=== PATIENT | male | born 1935 | race Caucasian/White ===

== ENCOUNTER 2018-02-28 10:15 | Inpatient (IN) | payer MEDICARE, OTHER ==
[~2018-02-28] VITALS: Ht 172.7 cm; Wt 74.5 kg
[2018-02-28 11:38] VITALS: BP 117/50
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
--- NOTE | 2018-02-28 12:57 | NUR ---
Pt has been very agitated since admission. Pt stating that his daughter put him here and he does not belong here. Pt states that he is going to take his DIL to court and jonathan everyone here. Pt raising his voice at times. Pt upset that we "took" his cell phone and belt. Pt refused to enter dining room for lunch, stating he is "not eating with all of those crazies." PRN Zyprexa placed in glass of water, which pt consumed. Pt currently sitting in room, refusing to leave. Will continue to monitor.
[2018-02-28] MEDS ORDERED: METHYL SALICYLATE/MENTHOL TOPICAL OINTMENT 29GM TUBE. TP PRN (13:15)
[2018-02-28] MEDS ORDERED: MAG HYDROX/AL HYDROX/SIMETH 30 ML ORAL.SUSP PO PRN (13:15)
[2018-02-28] MEDS ORDERED: ACETAMINOPHEN 325 MG TABLET PO PRN (13:15)
[2018-02-28] MEDS ORDERED: MAGNESIUM HYDROXIDE 2,400 MG/30 ML ORAL.SUSP. PO PRN (13:15)
[2018-02-28] MEDS ORDERED: ASPI-630 PO (15:12)
[2018-02-28] MEDS ORDERED: GLUC-9 PO (15:12)
[2018-02-28] MEDS ORDERED: CLOP75TA57 PO (15:12)
[2018-02-28] MEDS ORDERED: ATOR40TA PO (15:12)
[2018-02-28] MEDS ORDERED: MULT1TAB52 PO (15:12)
[2018-02-28] MEDS ORDERED: CALC500T79 PO (15:12)
[2018-02-28] MEDS ORDERED: METO50TA29 PO (15:12)
[2018-02-28] MEDS ORDERED: LISI-338 PO (15:12)
[2018-02-28] MEDS ORDERED: OMEG1CAP38 PO (15:12)
[2018-02-28 16:56] VITALS: BP 104/65
--- NOTE | 2018-02-28 20:53 | PDOC ---
Exam Note: Harinder Note: Please also refer to the separate dictated note~for this date of service dictated separately.~Patient seen individually. Discussed the patient with Nursing staff reviewed the chart.~Reviewed interim history and current functioning. Reviewed vital signs,~Labs/ Radiology~and current medications noted below. Continue current treatment with the changes noted in the dictated addendum note Assessment: Vital Signs: Vital Signs Date Time Temp Pulse Resp B/P (MAP) Pulse Ox O2 Delivery O2 Flow Rate FiO2 02/28/18 16:56 97.7 65 18 104/65 (78) 98 Current Medications: Meds: Current Medications Olanzapine (ZyPREXA ZYDIS) 1.25 mg PRN Q2HR PRN PO PSYCHOSIS Last administered on 02/28/18at 12:19; Start 02/28/18 at 12:00 Acetaminophen (Tylenol) 650 mg PRN Q6HRS PRN PO PAIN / TEMP; Start 02/28/18 at 13:15 Multi-Ingredient Ointment (Analgesic [place]) 1 sophia PRN QID PRN TP MUSCLE PAIN; Start 02/28/18 at 13:15 Al Hydroxide/Mg Hydroxide (Mylanta Plus Xs) 15 ml PRN AFTMEALHC PRN PO DYSPEPSIA; Start 02/28/18 at 13:15 Magnesium Hydroxide (Milk Of Magnesia) 2,400 mg PRN QHS PRN PO CONSTIPATION; Start 02/28/18 at 13:15 Calcium Carbonate/ Glycine (Oscal) 500 mg DAILY PO ; Start 03/01/18 at 09:00 Clopidogrel Bisulfate (Plavix) 75 mg DAILY PO ; Start 03/01/18 at 09:00 Lisinopril (Prinivil) 5 mg DAILY PO ; Start 03/01/18 at 09:00 Aspirin (Children'S Aspirin) 81 mg DAILYWBKFT PO ; Start 03/01/18 at 08:00 Atorvastatin Calcium (Lipitor) 40 mg DAILY PO ; Start 03/01/18 at 09:00 Glucosamine/ Chondroitin (Glucosamine-Chondroitin 500/400mg) 1 cap DAILY PO ; Start 03/01/18 at 09:00 Metoprolol Succinate (Toprol Xl) 50 mg DAILY PO ; Start 03/01/18 at 09:00 Fish Oil (Fish Oil) 1,000 mg DAILY PO ; Start 03/01/18 at 09:00 Multivitamins/ Minerals (I-Andre) 1 tab DAILY PO ; Start 03/01/18 at 09:00 Sertraline HCl (Zoloft) 25 mg DAILY PO ; Start 03/01/18 at 09:00 Active Scripts Active Reported Lisinopril 5 Mg Tablet 5 Mg PO DAILY [id number] (Calcium Carbonate) 500 Mg Tablet 500 Mg PO DAILY Glucosamine Chondroitin Caplet (Gluc Emanuel Dipo Ch/Bg Emanuel/C/Sushant) 1 Each Tablet 1 Each PO DAILY Multivitamins (Multivitamin) 1 Each Tablet 1 Each PO [place] 3 Fish Oil Softgel ([place]-3 Fatty Acids/Fish Oil) 1 Each Capsule.dr 1 Each PO DAILY Aspirin 81 Mg Tab.chew 81 Mg PO DAILY Lipitor (Atorvastatin Calcium) 40 Mg Tablet 40 Mg PO DAILY Plavix (Clopidogrel Bisulfate) 75 Mg Tablet 75 Mg PO DAILY Metoprolol Succinate ( Xl ) (Metoprolol Succinate) 50 Mg Tab.er.24h 50 Mg PO DAILY I have reviewed the current psychotropics carefully including drug interactions. Risk benefit ratio favors no change other than as noted in my dictated progress note. Diagnosis: Problems: (1) Anxiety disorder (2) Impulse control disorder (3) Mild cognitive impairment (4) Major depressive disorder, recurrent episode DAVY CISNEROS MD Feb 28, 2018 20:53
[2018-02-28 21:33] LABS: BASO % 1 % (0-3); EOS # 0.1 x10^3/uL (0.0-0.7); EOS % 1 % (0-3); HEMATOCRIT 41.9 % (39.0-53.0); HEMOGLOBIN 14.8 g/dL (13.0-17.5); LYMPH # 0.9 x10^3/uL (1.0-4.8); LYMPH % 10 % (24-48); MEAN CORPUSCULAR HEMOGLOBIN 33 pg (25-35); MEAN CORPUSCULAR HGB CONC 35 g/dL (31-37); MEAN CORPUSCULAR VOLUME 93 fL (79-100); MONO # 0.8 x10^3/uL (0.0-1.1); MONO % 9 % (0-9); NEUT # 7.5 x10^3uL (1.8-7.7); NEUT % 81 % (31-73); PLATELET COUNT 217 x10^3/uL (140-400); RED BLOOD COUNT 4.53 x10^6/uL (4.30-5.70); RED CELL DISTRIBUTION WIDTH 13.6 % (11.5-14.5); WHITE BLOOD COUNT 9.2 x10^3/uL (4.0-11.0)
[2018-02-28 21:46] LABS: ALBUMIN 3.5 g/dL (3.4-5.0); ALBUMIN/GLOBULIN RATIO 1.1 (1.0-1.7); CALCIUM 8.4 mg/dL (8.5-10.1); CREATININE 1.2 mg/dL (0.7-1.3); GFR 57.7; MAGNESIUM 2.1 mg/dL (1.8-2.4); POTASSIUM 3.8 mmol/L (3.5-5.1); TOTAL BILIRUBIN 0.7 mg/dL (0.2-1.0); TOTAL PROTEIN 6.8 g/dL (6.4-8.2)
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
--- NOTE | 2018-02-28 23:48 | NUR ---
Patient found in hallway for shift assessment. Patient is visibly agitated. Patient is obsessive related to finding his belongings. Patient repeatedly questioning this nurse about his belongings and demanding that this nurse let him go down to first floor so that he can find his belongings. Patient difficult to redirect. Patient Alert and oriented to self and date only at this time. Patient believes he has been at this hospital for several weeks. Patient is resting in his room at this time.
[2018-03-01 06:32] VITALS: BP 126/61
[2018-03-01] MEDS: ATORVASTATIN CALCIUM 20 MG TABLET PO SCH (09:35)
[2018-03-01] MEDS: OMEGA-3 FATTY ACIDS/FISH OIL 1,000 MG CAPSULE. PO SCH (09:36)
[2018-03-01] MEDS: GLUCOSAMINE/CHOND 500/400MG CAPSULE PO SCH (09:36)
[2018-03-01] MEDS: MULTIVITAMIN I-VITE TABLET. PO SCH (09:36)
[2018-03-01] MEDS: LISINOPRIL 5 MG TABLET. PO SCH (09:36)
[2018-03-01] MEDS: SERTRALINE 25 MG TABLET. PO SCH (09:36)
[2018-03-01] MEDS: CLOPIDOGREL BISULFATE 75 MG TABLET PO SCH (09:36)
[2018-03-01] MEDS: ASPIRIN 81 MG TAB.CHEW PO SCH (09:36)
[2018-03-01] MEDS: METOPROLOL SUCC 24HR ER 50 MG TAB.ER.24H. PO SCH (09:36)
[2018-03-01] MEDS: CALCIUM CARBONATE 500 MG TABLET PO SCH (09:37)
[2018-03-01 10:18] LABS: BACTERIA,URINE 0 /HPF (0-FEW); BILIRUBIN,URINE NEG (NEG); CLARITY,URINE CLEAR; COLOR,URINE AMBER; GLUCOSE,URINE NEG (NEG); NITRITE,URINE NEG (NEG); RBC,URINE 0 /HPF (0-2); SQUAMOUS EPITHELIAL CELL,UR OCC /LPF; UROBILINOGEN,URINE 0.2 mg/dL (0.2 mg/dL); WBC,URINE 0 /HPF (0-4)
--- NOTE | 2018-03-01 13:09 | NUR ---
Patient has been to the nurses station asking for his belongings 3-4 times. Patient becoming increasingly agitated and wanting to leave. Advised patient that he will be here a few days, and is waiting to see the doctors. He then threatened to get a gun and "take care of the situation".
[2018-03-01 14:16] LABS: THYROID STIM HORMONE (TSH) 3.567 uIU/mL (0.358-3.740)
--- NOTE | 2018-03-01 15:00 | NUR ---
WEEKLY THERAPEUTIC RECREATION NOTE Date of Admission: 02/28/2018 Date of AT Assessment: TBD Goal aimed: TBD Initial goal: TBD Weekly progress towards goal: NA Group participation level: Zero Behaviors observed: stays in room, no interest in groups, quiet Plan: meet/ assess Pt.
[2018-03-01 16:17] VITALS: BP 90/55
--- NOTE | 2018-03-01 16:52 | NUR ---
Patient at nurses station yelling for 30 minutes and blaming everyone for his problems. We've "taken everything away from him". Demanding his cell phone, wallet and keys because he wants to leave. Patient continued to argue with everything staff said, blaming others for everything. Denies having any problems, became agitated and was gesturing with hands and stomping in hallway. Continued to say "I can't live this way, I'll probably have a heart attack, I just want my cell phone". Continues to blame staff for keeping him here against his will, when informed that it was his son, HAILEY, that "put him here" he stated that he would go away where they can't find him. Denies having any memory of the events that brought him here, PD being called and going to [facility] room.
--- NOTE | 2018-03-01 20:48 | PDOC ---
Exam Note: Harinder Note: Please also refer to the separate dictated note~for this date of service dictated separately.~Patient seen individually. Discussed the patient with Nursing staff reviewed the chart.~Reviewed interim history and current functioning. Reviewed vital signs,~Labs/ Radiology~and current medications noted below. Continue current treatment with the changes noted in the dictated addendum note Assessment: Vital Signs: Vital Signs Date Time Temp Pulse Resp B/P (MAP) Pulse Ox O2 Delivery O2 Flow Rate FiO2 03/01/18 16:17 97.0 69 18 90/55 (67) 98 I&O Intake and Output 03/01/18 07:00 Intake Total 600 ml Balance 600 ml Intake Oral 600 ml Labs: Laboratory Tests Test 02/28/18 21:00 02/28/18 21:15 03/01/18 09:30 Sodium Level 138 mmol/L (136-145) Potassium Level 3.8 mmol/L (3.5-5.1) Chloride Level 105 mmol/L (98-107) Carbon Dioxide Level 25 mmol/L (21-32) Anion Gap 8 (6-14) Blood Urea Nitrogen 20 mg/dL (8-26) Creatinine 1.2 mg/dL (0.7-1.3) Estimated GFR (Cockcroft-Gault) 57.7 BUN/Creatinine Ratio 17 (6-20) Glucose Level 101 mg/dL (70-99) H Calcium Level 8.4 mg/dL (8.5-10.1) L Magnesium Level 2.1 mg/dL (1.8-2.4) Total Bilirubin 0.7 mg/dL (0.2-1.0) Aspartate Amino Transferase (AST) 36 U/L (15-37) Alanine Aminotransferase (ALT) 24 U/L (16-63) Alkaline Phosphatase 102 U/L (46-116) Total Protein 6.8 g/dL (6.4-8.2) Albumin 3.5 g/dL (3.4-5.0) Albumin/Globulin Ratio 1.1 (1.0-1.7) White Blood Count 9.2 x10^3/uL (4.0-11.0) Red Blood Count 4.53 x10^6/uL (4.30-5.70) Hemoglobin 14.8 g/dL (13.0-17.5) Hematocrit 41.9 % (39.0-53.0) Mean Corpuscular Volume 93 fL (79-100) Mean Corpuscular Hemoglobin 33 pg (25-35) Mean Corpuscular Hemoglobin Concent 35 g/dL (31-37) Red Cell Distribution Width 13.6 % (11.5-14.5) Platelet Count 217 x10^3/uL (140-400) Neutrophils (%) (Auto) 81 % (31-73) H Lymphocytes (%) (Auto) 10 % (24-48) L Monocytes (%) (Auto) 9 % (0-9) Eosinophils (%) (Auto) 1 % (0-3) Basophils (%) (Auto) 1 % (0-3) Neutrophils # (Auto) 7.5 x10^3uL (1.8-7.7) Lymphocytes # (Auto) 0.9 x10^3/uL (1.0-4.8) L Monocytes # (Auto) 0.8 x10^3/uL (0.0-1.1) Eosinophils # (Auto) 0.1 x10^3/uL (0.0-0.7) Basophils # (Auto) 0.0 x10^3/uL (0.0-0.2) Iron Level 58 ug/dL (65-175) L Total Iron Binding Capacity 249 ug/dL (250-450) L Iron Saturation 23 % (15-34) Triglycerides Level 75 mg/dL (0-150) Cholesterol Level 117 mg/dL (0-200) LDL Cholesterol, Calculated 64 mg/dL (0-100) VLDL Cholesterol, Calculated 15 mg/dL (0-40) Non-HDL Cholesterol Calculated 79 mg/dL (0-129) HDL Cholesterol 38 mg/dL (40-60) L Cholesterol/HDL Ratio 3.0 Vitamin B12 Level 334 pg/mL (247-911) 25-Hydroxy Vitamin D Total 46.7 ng/mL (30-100) Thyroid Stimulating Hormone (TSH) 3.567 uIU/mL (0.358-3.740) Thyroxine (T4) 7.0 ug/dL (4.5-12.0) Total Triiodothyronine (TT3) 103 ng/dL (71-180) Treponema pallidum Antibody Nonreactive (Nonreactive) Urine Collection Type Unknown Urine Color Liliana Urine Clarity Clear Urine pH 5.5 Urine Specific Healy 1.010 Urine Protein Neg (NEG-TRACE) Urine Glucose (UA) Neg mg/dL (NEG) Urine Ketones (Stick) 15 mg/dL (NEG) Urine Blood Neg (NEG) Urine Nitrite Neg (NEG) Urine Bilirubin Neg (NEG) Urine Urobilinogen Dipstick 0.2 mg/dL (0.2 mg/dL) Urine Leukocyte Esterase Neg (NEG) Urine RBC 0 /HPF (0-2) Urine WBC 0 /HPF (0-4) Urine Squamous Epithelial Cells Occ /LPF Urine Bacteria 0 /HPF (0-FEW) Urine Mucus Slight /LPF Current Medications: Meds: Current Medications Olanzapine (ZyPREXA ZYDIS) 1.25 mg PRN Q2HR PRN PO PSYCHOSIS Last administered on 02/28/18at 12:19; Start 02/28/18 at 12:00 Acetaminophen (Tylenol) 650 mg PRN Q6HRS PRN PO PAIN / TEMP; Start 02/28/18 at 13:15 Multi-Ingredient Ointment (Analgesic [place]) 1 sophia PRN QID PRN TP MUSCLE PAIN; Start 02/28/18 at 13:15 Al Hydroxide/Mg Hydroxide (Mylanta Plus Xs) 15 ml PRN AFTMEALHC PRN PO DYSPEPSIA; Start 02/28/18 at 13:15 Magnesium Hydroxide (Milk Of Magnesia) 2,400 mg PRN QHS PRN PO CONSTIPATION; Start 02/28/18 at 13:15 Calcium Carbonate/ Glycine (Oscal) 500 mg DAILY PO Last administered on at 09:37; Start 03/01/18 at 09:00 Clopidogrel Bisulfate (Plavix) 75 mg DAILY PO Last administered on 03/01/18at 09: 36; Start 03/01/18 at 09:00 Lisinopril (Prinivil) 5 mg DAILY PO Last administered on 03/01/18at 09:36; Start 03/01/18 at 09:00 Aspirin (Children'S Aspirin) 81 mg DAILYWBKFT PO Last administered on 03/01/18at 09:36; Start 03/01/18 at 08:00 Atorvastatin Calcium (Lipitor) 40 mg DAILY PO Last administered on 03/01/18at 09: 35; Start 03/01/18 at 09:00 Glucosamine/ Chondroitin (Glucosamine-Chondroitin 500/400mg) 1 cap DAILY PO Last administered on 03/01/18 09:36; Start 03/01/18 at 09:00 Metoprolol Succinate (Toprol Xl) 50 mg DAILY PO Last administered on 03/01/18 09:36; Start 03/01/18 at 09:00 Fish Oil (Fish Oil) 1,000 mg DAILY PO Last administered on 03/01/18 09:36; Start 03/01/18 at 09:00 Multivitamins/ Minerals (I-Andre) 1 tab DAILY PO Last administered on 03/01/18 09:36; Start 03/01/18 at 09:00 Sertraline HCl (Zoloft) 25 mg DAILY PO Last administered on 03/01/18 09:36; Start 03/01/18 at 09:00; Stop 03/03/18 at 08:00 Sertraline HCl (Zoloft) 50 mg DAILY PO ; Start 03/03/18 at 09:00 Quetiapine Fumarate (SEROquel) 12.5 mg BID@0900,1300 PO ; Start 03/02/18 at 09:00 Active Scripts Active Reported Lisinopril 5 Mg Tablet 5 Mg PO DAILY [id number] (Calcium Carbonate) 500 Mg Tablet 500 Mg PO DAILY Glucosamine Chondroitin Caplet (Gluc Emanuel Dipo Ch/Bg Emanuel/C/Sushant) 1 Each Tablet 1 Each PO DAILY Multivitamins (Multivitamin) 1 Each Tablet 1 Each PO [place] 3 Fish Oil Softgel ([place]-3 Fatty Acids/Fish Oil) 1 Each Capsule. 1 Each PO DAILY Aspirin 81 Mg Tab.chew 81 Mg PO DAILY Lipitor (Atorvastatin Calcium) 40 Mg Tablet 40 Mg PO DAILY Plavix (Clopidogrel Bisulfate) 75 Mg Tablet 75 Mg PO DAILY Metoprolol Succinate ( Xl ) (Metoprolol Succinate) 50 Mg Tab.er.24h 50 Mg PO DAILY I have reviewed the current psychotropics carefully including drug interactions. Risk benefit ratio favors no change other than as noted in my dictated progress note. Diagnosis: Problems: (1) Anxiety disorder (2) Impulse control disorder (3) Mild cognitive impairment (4) Major depressive disorder, recurrent episode DAVY CISNEROS MD Mar 01, 2018 20:48
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
[2018-03-02 04:12] LABS: HEMOGLOBIN A1C 5.1 % (4.8-5.6)
[2018-03-02 06:29] VITALS: BP 126/64
--- NOTE | 2018-03-02 07:04 | NUR ---
Nursing Note Patient found in room for shift assessment. Patient irritable with assessment. Patient withdrawn to room and refuses to answer questions during assessment. Patient remains in room.
[2018-03-02] MEDS: LISINOPRIL 5 MG TABLET. PO SCH (08:45)
[2018-03-02] MEDS: CLOPIDOGREL BISULFATE 75 MG TABLET PO SCH (08:45)
[2018-03-02] MEDS: OMEGA-3 FATTY ACIDS/FISH OIL 1,000 MG CAPSULE. PO SCH (08:45)
[2018-03-02] MEDS: SERTRALINE 25 MG TABLET. PO SCH (08:45)
[2018-03-02] MEDS: GLUCOSAMINE/CHOND 500/400MG CAPSULE PO SCH (08:45)
[2018-03-02] MEDS: METOPROLOL SUCC 24HR ER 50 MG TAB.ER.24H. PO SCH (08:45)
[2018-03-02] MEDS: CALCIUM CARBONATE 500 MG TABLET PO SCH (08:46)
[2018-03-02] MEDS: MULTIVITAMIN I-VITE TABLET. PO SCH (08:46)
[2018-03-02] MEDS: ATORVASTATIN CALCIUM 20 MG TABLET PO SCH (08:46)
[2018-03-02] MEDS: ASPIRIN 81 MG TAB.CHEW PO SCH (08:46)
[2018-03-02] MEDS: QUEtiapine 25 MG TABLET. PO SCH ×2 (08:47→11:39)
--- NOTE | 2018-03-02 14:00 | NUR ---
Nursing Note Pt calm and cooperative today. No attitude seems a little forgetful at times. Med compliant although states he takes much less at home than here. Up for meals withdrawn to room.
--- NOTE | 2018-03-02 14:53 | RAD ---
CT HEAD WITHOUT CONTRAST 03/02/2018 10:03 AM Indication: CHANGE IN MENTAL STATUS Comparison: None available Procedure: Multidetector CT imaging of the head was performed without the administration of contrast. Findings: Age-appropriate senescent atrophic changes are noted. No evidence of acute intracranial hemorrhage is identified. No evidence of acute territorial infarct is seen. No evidence of acute mass effect or midline shift is identified. The ventricles and basilar cisterns are patent. No evidence of acute osseous abnormality is identified IMPRESSION: Senescent changes without evidence of acute intracranial abnormality. CT DOSING PQRS STATEMENT: One or more of the following individualized dose reduction techniques were utilized for this examination: 1. Automated exposure control 2. Adjustment of the mA and/or kV according to patient size 3. Use of iterative reconstruction technique Electronically signed by: Goldy Holt MD (03/02/2018 2:49 PM) [id number]
[2018-03-02 16:22] VITALS: BP 112/60
--- NOTE | 2018-03-02 21:00 | NUR ---
Behavior Intervention Response and Plan: BIRP Note: Behavior: Assumed Care of patient, patient located in Hallway at shift change. Patient exhibited the following behavior Calm, Wandering, Resistive. Brief assessment on rounds of vital signs, medication needs, lab studies, and pain. Treatment plan problems 1-3. Intervention: Patient assessed and the following interventions initiated safety checks 15 Minute Checks Head to toe Assessment , Medications , ADL's. Response: After interactions and interventions patient responded in the following manner, Calm , Cooperative ,. Continue to assess behaviors and condition will continue to monitor throughout the shift as needed. Patient educated on ADL's, and hand hygiene. Plan: Continue to monitor Master Treatment Plan for patient's progress toward short term goals of Improved Mood, Decreased Agitation, chcf goals to return to previous living setting vs placement. Continue to assess patient for changes in above assessment. Monitor for medication needs, pain, and safety concerns. Hourly rounding performed to ensure safe environment.
--- NOTE | 2018-03-02 22:27 | PDOC ---
Exam Note: Harinder Note: Please also refer to the separate dictated note~for this date of service dictated separately.~Patient seen individually. Discussed the patient with Nursing staff reviewed the chart.~Reviewed interim history and current functioning. Reviewed vital signs,~Labs/ Radiology~and current medications noted below. Continue current treatment with the changes noted in the dictated addendum note Assessment: Vital Signs: Vital Signs Date Time Temp Pulse Resp B/P (MAP) Pulse Ox O2 Delivery O2 Flow Rate FiO2 03/02/18 16:22 97.0 75 16 112/60 (77) 94 Room Air I&O Intake and Output 03/02/18 07:00 Intake Total 600 ml Balance 600 ml Intake Oral 600 ml # Voids 1 Current Medications: Meds: Current Medications Olanzapine (ZyPREXA ZYDIS) 1.25 mg PRN Q2HR PRN PO PSYCHOSIS Last administered on 02/28/18at 12:19; Start 02/28/18 at 12:00 Acetaminophen (Tylenol) 650 mg PRN Q6HRS PRN PO PAIN / TEMP; Start 02/28/18 at 13:15 Multi-Ingredient Ointment (Analgesic [place]) 1 sophia PRN QID PRN TP MUSCLE PAIN; Start 02/28/18 at 13:15 Al Hydroxide/Mg Hydroxide (Mylanta Plus Xs) 15 ml PRN AFTMEALHC PRN PO DYSPEPSIA; Start 02/28/18 at 13:15 Magnesium Hydroxide (Milk Of Magnesia) 2,400 mg PRN QHS PRN PO CONSTIPATION; Start 02/28/18 at 13:15 Calcium Carbonate/ Glycine (Oscal) 500 mg DAILY PO Last administered on at 08:46; Start 03/01/18 at 09:00 Clopidogrel Bisulfate (Plavix) 75 mg DAILY PO Last administered on 03/02/18at 08: 45; Start 03/01/18 at 09:00 Lisinopril (Prinivil) 5 mg DAILY PO Last administered on 03/02/18at 08:45; Start 03/01/18 at 09:00 Aspirin (Children'S Aspirin) 81 mg DAILYWBKFT PO Last administered on 03/02/18at 08:46; Start 03/01/18 at 08:00 Atorvastatin Calcium (Lipitor) 40 mg DAILY PO Last administered on 03/02/18at 08: 46; Start 03/01/18 at 09:00 Glucosamine/ Chondroitin (Glucosamine-Chondroitin 500/400mg) 1 cap DAILY PO Last administered on 03/02/18at 08:45; Start 03/01/18 at 09:00 Metoprolol Succinate (Toprol Xl) 50 mg DAILY PO Last administered on 03/02/18at 08:45; Start 03/01/18 at 09:00 Fish Oil (Fish Oil) 1,000 mg DAILY PO Last administered on 03/02/18at 08:45; Start 03/01/18 at 09:00 Multivitamins/ Minerals (I-Andre) 1 tab DAILY PO Last administered on 03/02/18at 08:46; Start 03/01/18 at 09:00 Sertraline HCl (Zoloft) 25 mg DAILY PO Last administered on 03/02/18at 08:45; Start 03/01/18 at 09:00; Stop 03/03/18 at 08:00 Sertraline HCl (Zoloft) 50 mg DAILY PO ; Start 03/03/18 at 09:00 Quetiapine Fumarate (SEROquel) 12.5 mg BID@0900,1300 PO Last administered on 03/02/18at 11:39; Start 03/02/18 at 09:00 Active Scripts Active Reported Lisinopril 5 Mg Tablet 5 Mg PO DAILY [id number] (Calcium Carbonate) 500 Mg Tablet 500 Mg PO DAILY Glucosamine Chondroitin Caplet (Gluc Emanuel Dipo Ch/Bg Emanuel/C/Sushant) 1 Each Tablet 1 Each PO DAILY Multivitamins (Multivitamin) 1 Each Tablet 1 Each PO [place] 3 Fish Oil Softgel ([place]-3 Fatty Acids/Fish Oil) 1 Each Capsule.dr 1 Each PO DAILY Aspirin 81 Mg Tab.chew 81 Mg PO DAILY Lipitor (Atorvastatin Calcium) 40 Mg Tablet 40 Mg PO DAILY Plavix (Clopidogrel Bisulfate) 75 Mg Tablet 75 Mg PO DAILY Metoprolol Succinate ( Xl ) (Metoprolol Succinate) 50 Mg Tab.er.24h 50 Mg PO DAILY I have reviewed the current psychotropics carefully including drug interactions. Risk benefit ratio favors no change other than as noted in my dictated progress note. Diagnosis: Problems: (1) Anxiety disorder (2) Impulse control disorder (3) Mild cognitive impairment (4) Major depressive disorder, recurrent episode DAVY CISNEROS MD Mar 02, 2018 22:27
[2018-03-03 05:48] VITALS: BP 117/51
[2018-03-03] MEDS: OMEGA-3 FATTY ACIDS/FISH OIL 1,000 MG CAPSULE. PO SCH (08:49)
[2018-03-03] MEDS: ATORVASTATIN CALCIUM 20 MG TABLET PO SCH (08:49)
[2018-03-03] MEDS: ASPIRIN 81 MG TAB.CHEW PO SCH ×2 (08:49→08:54)
[2018-03-03] MEDS: METOPROLOL SUCC 24HR ER 50 MG TAB.ER.24H. PO SCH (08:49)
[2018-03-03] MEDS: LISINOPRIL 5 MG TABLET. PO SCH (08:50)
[2018-03-03] MEDS: CALCIUM CARBONATE 500 MG TABLET PO SCH (08:50)
[2018-03-03] MEDS: GLUCOSAMINE/CHOND 500/400MG CAPSULE PO SCH (08:50)
[2018-03-03] MEDS: CLOPIDOGREL BISULFATE 75 MG TABLET PO SCH (08:50)
[2018-03-03] MEDS: QUEtiapine 25 MG TABLET. PO SCH ×2 (08:50→12:25)
[2018-03-03] MEDS: MULTIVITAMIN I-VITE TABLET. PO SCH (08:50)
[2018-03-03] MEDS: SERTRALINE 50 MG TABLET. PO SCH (08:53)
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
[2018-03-03 15:55] VITALS: BP 110/59
--- NOTE | 2018-03-03 20:00 | NUR ---
Behavior Intervention Response and Plan: BIRP Note: Behavior: Assumed Care of patient, patient located in Hallway at shift change. Patient exhibited the following behavior Wandering, Restless, Disorganized. Brief assessment on rounds of vital signs, medication needs, lab studies, and pain. Treatment plan problems 1. Intervention: Patient assessed and the following interventions initiated safety checks 15 Minute Checks Personal Alarm in place , Cognitive Assessment , Head to toe Assessment. Response: After interactions and interventions patient responded in the following manner, Wandering , Restless ,Disorganized. Continue to assess behaviors and condition will continue to monitor throughout the shift as needed. Patient educated on ADL's, and hand hygiene. 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 Continue to assess patient for changes in above assessment. Monitor for medication needs, pain, and safety concerns. Hourly rounding performed to ensure safe environment.
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
--- NOTE | 2018-03-03 23:13 | PDOC ---
Exam Note: Harinder Note: Please also refer to the separate dictated note~for this date of service dictated separately.~Patient seen individually. Discussed the patient with Nursing staff reviewed the chart.~Reviewed interim history and current functioning. Reviewed vital signs,~Labs/ Radiology~and current medications noted below. Continue current treatment with the changes noted in the dictated addendum note Assessment: Vital Signs: Vital Signs Date Time Temp Pulse Resp B/P (MAP) Pulse Ox O2 Delivery O2 Flow Rate FiO2 03/03/18 15:55 97.0 53 18 110/59 (76) 99 03/02/18 16:22 Room Air I&O Intake and Output 03/03/18 07:00 Intake Total 1080 ml Balance 1080 ml Intake Oral 1080 ml # Bowel Movements 1 Current Medications: Meds: Current Medications Olanzapine (ZyPREXA ZYDIS) 1.25 mg PRN Q2HR PRN PO PSYCHOSIS Last administered on 02/28/18at 12:19; Start 02/28/18 at 12:00 Acetaminophen (Tylenol) 650 mg PRN Q6HRS PRN PO PAIN / TEMP; Start 02/28/18 at 13:15 Multi-Ingredient Ointment (Analgesic [place]) 1 sophia PRN QID PRN TP MUSCLE PAIN; Start 02/28/18 at 13:15 Al Hydroxide/Mg Hydroxide (Mylanta Plus Xs) 15 ml PRN AFTMEALHC PRN PO DYSPEPSIA; Start 02/28/18 at 13:15 Magnesium Hydroxide (Milk Of Magnesia) 2,400 mg PRN QHS PRN PO CONSTIPATION; Start 02/28/18 at 13:15 Calcium Carbonate/ Glycine (Oscal) 500 mg DAILY PO Last administered on at 08:50; Start 03/01/18 at 09:00 Clopidogrel Bisulfate (Plavix) 75 mg DAILY PO Last administered on 03/03/18at 08: 50; Start 03/01/18 at 09:00 Lisinopril (Prinivil) 5 mg DAILY PO Last administered on 03/03/18 08:50; Start 03/01/18 at 09:00 Aspirin (Children'S Aspirin) 81 mg DAILYWBKFT PO Last administered on 03/03/18at 08:54; Start 03/01/18 at 08:00 Atorvastatin Calcium (Lipitor) 40 mg DAILY PO Last administered on 03/03/18 08: 49; Start 03/01/18 at 09:00 Glucosamine/ Chondroitin (Glucosamine-Chondroitin 500/400mg) 1 cap DAILY PO Last administered on 03/03/18 08:50; Start 03/01/18 at 09:00 Metoprolol Succinate (Toprol Xl) 50 mg DAILY PO Last administered on 03/03/18 08:49; Start 03/01/18 at 09:00 Fish Oil (Fish Oil) 1,000 mg DAILY PO Last administered on 03/03/18 08:49; Start 03/01/18 at 09:00 Multivitamins/ Minerals (I-Andre) 1 tab DAILY PO Last administered on 03/03/18 08:50; Start 03/01/18 at 09:00 Sertraline HCl (Zoloft) 25 mg DAILY PO Last administered on 03/02/18 08:45; Start 03/01/18 at 09:00; Stop 03/03/18 at 08:00; Status DC Sertraline HCl (Zoloft) 50 mg DAILY PO Last administered on 03/03/18 08:53; Start 03/03/18 at 09:00 Quetiapine Fumarate (SEROquel) 12.5 mg BID@0900,1300 PO Last administered on 12:25; Start 03/02/18 at 09:00 Active Scripts Active Reported Lisinopril 5 Mg Tablet 5 Mg PO DAILY [id number] (Calcium Carbonate) 500 Mg Tablet 500 Mg PO DAILY Glucosamine Chondroitin Caplet (Gluc Emanuel Dipo Ch/Bg Emanuel/C/Sushant) 1 Each Tablet 1 Each PO DAILY Multivitamins (Multivitamin) 1 Each Tablet 1 Each PO [place] 3 Fish Oil Softgel ([place]-3 Fatty Acids/Fish Oil) 1 Each Capsule. 1 Each PO DAILY Aspirin 81 Mg Tab.chew 81 Mg PO DAILY Lipitor (Atorvastatin Calcium) 40 Mg Tablet 40 Mg PO DAILY Plavix (Clopidogrel Bisulfate) 75 Mg Tablet 75 Mg PO DAILY Metoprolol Succinate ( Xl ) (Metoprolol Succinate) 50 Mg Tab.er.24h 50 Mg PO DAILY I have reviewed the current psychotropics carefully including drug interactions. Risk benefit ratio favors no change other than as noted in my dictated progress note. Diagnosis: Problems: (1) Anxiety disorder (2) Impulse control disorder (3) Mild cognitive impairment (4) Major depressive disorder, recurrent episode DAVY CISNEROS MD Mar 03, 2018 23:13
[2018-03-04 05:42] VITALS: BP 127/56
[2018-03-04] MEDS: ASPIRIN 81 MG TAB.CHEW PO SCH (08:23)
[2018-03-04] MEDS: OMEGA-3 FATTY ACIDS/FISH OIL 1,000 MG CAPSULE. PO SCH (08:23)
[2018-03-04] MEDS: METOPROLOL SUCC 24HR ER 50 MG TAB.ER.24H. PO SCH (08:24)
[2018-03-04] MEDS: CALCIUM CARBONATE 500 MG TABLET PO SCH (08:24)
[2018-03-04] MEDS: QUEtiapine 25 MG TABLET. PO SCH ×2 (08:24→13:46)
[2018-03-04] MEDS: LISINOPRIL 5 MG TABLET. PO SCH (08:24)
[2018-03-04] MEDS: SERTRALINE 50 MG TABLET. PO SCH (08:24)
[2018-03-04] MEDS: MULTIVITAMIN I-VITE TABLET. PO SCH (08:25)
[2018-03-04] MEDS: GLUCOSAMINE/CHOND 500/400MG CAPSULE PO SCH (08:25)
[2018-03-04] MEDS: CLOPIDOGREL BISULFATE 75 MG TABLET PO SCH (08:25)
[2018-03-04] MEDS: ATORVASTATIN CALCIUM 20 MG TABLET PO SCH (08:25)
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
--- NOTE | 2018-03-04 13:07 | PN ---
DATE: 03/03/2018 PSYCHIATRIC PROGRESS NOTE This 03/03/2018 covers elements not covered in my initial note of 03/03/2018. SUBJECTIVE: Met with the patient in the evening at length in his room. 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 Otherwise, he gets quite confused, anxious, paranoid, irritable, labile. He slept 6-1/2 hours previous evening. A couple of demented patients walked on to his room as were meeting and he was quite agitated, got up, walked out of the room right out of our session, and had to bring him back after took the other two patients out of his room. Short term memory is impaired. Slept 6-1/2 hours. REVIEW OF SYSTEMS: No CV, , pulmonary, eye, ENT system symptoms on review. MENTAL STATUS EXAM: Oriented to himself, situation at times. Speech is coherent, has some latency. Abstraction fair, computation is impaired, language function intact. Mood and affects somewhat depressed, anxious, labile, paranoid at times. LABORATORY DATA: Reviewed. IMPRESSION: Major neurocognitive disorder, Alzheimer, vascular with delusion, depression, behavioral disturbance. Rest unchanged: Major depressive disorder, recurrent. PLAN: Continue current psychotropics, may need to increase Zoloft further or augment with Abilify, but he is currently on Seroquel, which should be an augmentation strategy in its own right. DAVY CISNEROS MD DR: NOREEN/charly JOB#: [id number] / [id number]
--- NOTE | 2018-03-04 15:30 | NUR ---
It was reported that patient was becoming irritable and repeatedly asking about his family. Attempted to provide prn medication, but patient refused the med and then the drink it was hidden in. At this time patient has withdrawn to his room and is reading quietly. Will unadminister the medication and continue to monitor.
--- NOTE | 2018-03-04 16:00 | NUR ---
Patient has been repeatedly asking where his family is since shortly after lunch. HE appears to have forgotten being agitated while his son visited, now he has repeatedly stated that he saw his [id number]-fh-ofm's car in the parking lot and wants to know where they are. Will continue to monitor. DPOA came back and retrieved all patient's belongings that were placed in the safe. Inventory sheet updated.
[2018-03-04 16:19] VITALS: BP 101/54
--- NOTE | 2018-03-05 01:42 | NUR ---
Behavior Intervention Response and Plan: BIRP Note: Behavior: Assumed Care of patient, patient located in Patient Room at shift change. Patient exhibited the following behavior Withdrawn, Restless, Drowsy. Brief assessment on rounds of vital signs, medication needs, lab studies, and pain. Treatment plan problems 1. Intervention: Patient assessed and the following interventions initiated safety checks 15 Minute Checks Personal Alarm in place , Cognitive Assessment , Head to toe Assessment. Response: After interactions and interventions patient responded in the following manner, Withdrawn , Restless ,Disorganized. Continue to assess behaviors and condition will continue to monitor throughout the shift as needed. Patient educated on ADL's, and hand hygiene. 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 Continue to assess patient for changes in above assessment. Monitor for medication needs, pain, and safety concerns. Hourly rounding performed to ensure safe environment.
[2018-03-05 05:38] VITALS: BP 144/71
[2018-03-05] MEDS: MULTIVITAMIN I-VITE TABLET. PO SCH (09:39)
[2018-03-05] MEDS: GLUCOSAMINE/CHOND 500/400MG CAPSULE PO SCH (09:39)
[2018-03-05] MEDS: CLOPIDOGREL BISULFATE 75 MG TABLET PO SCH (09:39)
[2018-03-05] MEDS: OMEGA-3 FATTY ACIDS/FISH OIL 1,000 MG CAPSULE. PO SCH (09:39)
[2018-03-05] MEDS: LISINOPRIL 5 MG TABLET. PO SCH (09:39)
[2018-03-05] MEDS: QUEtiapine 25 MG TABLET. PO SCH ×2 (09:39→14:00)
[2018-03-05] MEDS: ASPIRIN 81 MG TAB.CHEW PO SCH (09:39)
[2018-03-05] MEDS: METOPROLOL SUCC 24HR ER 50 MG TAB.ER.24H. PO SCH (09:40)
[2018-03-05] MEDS: SERTRALINE 50 MG TABLET. PO SCH (09:40)
[2018-03-05] MEDS: CALCIUM CARBONATE 500 MG TABLET PO SCH (09:40)
[2018-03-05] MEDS: ROSUVASTATIN 20 MG PO SCH (09:46)
--- NOTE | 2018-03-05 11:55 | NUR ---
Behavior Intervention Response and Plan: BIRP Note: Behavior: Assumed Care of patient, patient located in Hallway at shift change. Patient exhibited the following behavior compliant, calm, Disorganized. Brief assessment on rounds of vital signs, medication needs, lab studies, and pain. Treatment plan problems 1. Intervention: Patient assessed and the following interventions initiated safety checks 15 Minute Checks Personal Alarm in place , Cognitive Assessment , Head to toe Assessment. Response: After interactions and interventions patient responded in the following manner, calm , compliant ,Disorganized. Continue to assess behaviors and condition will continue to monitor throughout the shift as needed. Patient educated on ADL's, and hand hygiene. 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 Continue to assess patient for changes in above assessment. Monitor for medication needs, pain, and safety concerns. Hourly rounding performed to ensure safe environment.
[2018-03-05 16:32] VITALS: BP 108/54
--- NOTE | 2018-03-05 20:21 | PDOC ---
Exam Note: Harinder Note: Late entry for date of service March 04, 2018. Please also refer to the separate dictated note~for this date of service dictated separately.~Patient seen individually. Discussed the patient with Nursing staff reviewed the chart.~ Reviewed interim history and current functioning. Reviewed vital signs,~Labs/ Radiology~and current medications noted below. Continue current treatment with the changes noted in the dictated addendum note Assessment: Vital Signs: VS - Last 72 Hours, by Label Date Time Temp Pulse Resp B/P (MAP) Pulse Ox O2 Delivery O2 Flow Rate FiO2 03/05/18 16:32 97.8 51 18 108/54 (72) 99 03/05/18 09:40 64 144/71 03/05/18 09:39 64 144/71 03/05/18 05:38 97.6 64 18 144/71 (95) 97 03/04/18 16:19 98.2 56 19 101/54 (70) 99 03/04/18 08:24 61 127/56 03/04/18 08:24 61 127/56 03/04/18 05:42 97.7 61 18 127/56 (79) 96 03/03/18 15:55 97.0 53 18 110/59 (76) 99 03/03/18 08:50 53 117/51 03/03/18 08:49 53 117/51 03/03/18 05:48 96.3 53 18 117/51 (73) 98 Vital Signs Date Time Temp Pulse Resp B/P (MAP) Pulse Ox O2 Delivery O2 Flow Rate FiO2 03/05/18 16:32 97.8 51 18 108/54 (72) 99 03/02/18 16:22 Room Air I&O Intake and Output 03/05/18 07:00 Intake Total 1200 ml Balance 1200 ml Intake Oral 1200 ml Current Medications: Meds: Current Medications Olanzapine (ZyPREXA ZYDIS) 1.25 mg PRN Q2HR PRN PO PSYCHOSIS Last administered on 02/28/18at 12:19; Start 02/28/18 at 12:00 Acetaminophen (Tylenol) 650 mg PRN Q6HRS PRN PO PAIN / TEMP; Start 02/28/18 at 13:15 Multi-Ingredient Ointment (Analgesic [place]) 1 sophia PRN QID PRN TP MUSCLE PAIN; Start 02/28/18 at 13:15 Al Hydroxide/Mg Hydroxide (Mylanta Plus Xs) 15 ml PRN AFTMEALHC PRN PO DYSPEPSIA; Start 02/28/18 at 13:15 Magnesium Hydroxide (Milk Of Magnesia) 2,400 mg PRN QHS PRN PO CONSTIPATION; Start 02/28/18 at 13:15 Calcium Carbonate/ Glycine (Oscal) 500 mg DAILY PO Last administered on 09:40; Start 03/01/18 at 09:00 Clopidogrel Bisulfate (Plavix) 75 mg DAILY PO Last administered on 03/05/18 09 :39; Start 03/01/18 at 09:00 Lisinopril (Prinivil) 5 mg DAILY PO Last administered on 03/05/18 09:39; Start 03/01/18 at 09:00 Aspirin (Children'S Aspirin) 81 mg DAILYWBKFT PO Last administered on 09:39; Start 03/01/18 at 08:00 Atorvastatin Calcium (Lipitor) 40 mg DAILY PO Last administered on 03/04/18 08: 25; Start 03/01/18 at 09:00; Stop 03/04/18 at 13:36; Status DC Glucosamine/ Chondroitin (Glucosamine-Chondroitin 500/400mg) 1 cap DAILY PO Last administered on 03/05/18 09:39; Start 03/01/18 at 09:00 Metoprolol Succinate (Toprol Xl) 50 mg DAILY PO Last administered on 03/05/18 09:40; Start 03/01/18 at 09:00 Fish Oil (Fish Oil) 1,000 mg DAILY PO Last administered on 03/05/18 09:39; Start 03/01/18 at 09:00 Multivitamins/ Minerals (I-Andre) 1 tab DAILY PO Last administered on 03/05/18 09:39; Start 03/01/18 at 09:00 Sertraline HCl (Zoloft) 25 mg DAILY PO Last administered on 03/02/18 08:45; Start 03/01/18 at 09:00; Stop 03/03/18 at 08:00; Status DC Sertraline HCl (Zoloft) 50 mg DAILY PO Last administered on 03/05/18 09:40; Start 03/03/18 at 09:00 Quetiapine Fumarate (SEROquel) 12.5 mg BID@0900,1300 PO Last administered on 07/13at 14:00; Start 03/02/18 at 09:00 Non-Formulary Medication 1 ea DAILY PO Last administered on 03/05/18at 09:46; Start 03/05/18 at 09:00 Active Scripts Active Reported Lisinopril 5 Mg Tablet 5 Mg PO DAILY [id number] (Calcium Carbonate) 500 Mg Tablet 500 Mg PO DAILY Glucosamine Chondroitin Caplet (Gluc Emanuel Dipo Ch/Bg Emanuel/C/Sushant) 1 Each Tablet 1 Each PO DAILY Multivitamins (Multivitamin) 1 Each Tablet 1 Each PO [place] 3 Fish Oil Softgel ([place]-3 Fatty Acids/Fish Oil) 1 Each Capsule.dr 1 Each PO DAILY Aspirin 81 Mg Tab.chew 81 Mg PO DAILY Lipitor (Atorvastatin Calcium) 40 Mg Tablet 40 Mg PO DAILY Plavix (Clopidogrel Bisulfate) 75 Mg Tablet 75 Mg PO DAILY Metoprolol Succinate ( Xl ) (Metoprolol Succinate) 50 Mg Tab.er.24h 50 Mg PO DAILY I have reviewed the current psychotropics carefully including drug interactions. Risk benefit ratio favors no change other than as noted in my dictated progress note. Diagnosis: Problems: (1) Anxiety disorder (2) Impulse control disorder (3) Mild cognitive impairment (4) Major depressive disorder, recurrent episode DAVY CISNEROS MD Mar 05, 2018 20:21
--- NOTE | 2018-03-05 20:22 | PDOC ---
Exam Note: Harinder Note: Please also refer to the separate dictated note~for this date of service dictated separately.~Patient seen individually. Discussed the patient with Nursing staff reviewed the chart.~Reviewed interim history and current functioning. Reviewed vital signs,~Labs/ Radiology~and current medications noted below. Continue current treatment with the changes noted in the dictated addendum note Assessment: Vital Signs: Vital Signs Date Time Temp Pulse Resp B/P (MAP) Pulse Ox O2 Delivery O2 Flow Rate FiO2 03/05/18 16:32 97.8 51 18 108/54 (72) 99 03/02/18 16:22 Room Air I&O Intake and Output 03/05/18 07:00 Intake Total 1200 ml Balance 1200 ml Intake Oral 1200 ml Current Medications: Meds: Current Medications Olanzapine (ZyPREXA ZYDIS) 1.25 mg PRN Q2HR PRN PO PSYCHOSIS Last administered on 02/28/18at 12:19; Start 02/28/18 at 12:00 Acetaminophen (Tylenol) 650 mg PRN Q6HRS PRN PO PAIN / TEMP; Start 02/28/18 at 13:15 Multi-Ingredient Ointment (Analgesic [place]) 1 sophia PRN QID PRN TP MUSCLE PAIN; Start 02/28/18 at 13:15 Al Hydroxide/Mg Hydroxide (Mylanta Plus Xs) 15 ml PRN AFTMEALHC PRN PO DYSPEPSIA; Start 02/28/18 at 13:15 Magnesium Hydroxide (Milk Of Magnesia) 2,400 mg PRN QHS PRN PO CONSTIPATION; Start 02/28/18 at 13:15 Calcium Carbonate/ Glycine (Oscal) 500 mg DAILY PO Last administered on at 09:40; Start 03/01/18 at 09:00 Clopidogrel Bisulfate (Plavix) 75 mg DAILY PO Last administered on 03/05/18at 09 :39; Start 03/01/18 at 09:00 Lisinopril (Prinivil) 5 mg DAILY PO Last administered on 03/05/18at 09:39; Start 03/01/18 at 09:00 Aspirin (Children'S Aspirin) 81 mg DAILYWBKFT PO Last administered on at 09:39; Start 03/01/18 at 08:00 Atorvastatin Calcium (Lipitor) 40 mg DAILY PO Last administered on 6/9/18at 08: 25; Start 03/01/18 at 09:00; Stop 03/04/18 at 13:36; Status DC Glucosamine/ Chondroitin (Glucosamine-Chondroitin 500/400mg) 1 cap DAILY PO Last administered on 03/05/18 09:39; Start 03/01/18 at 09:00 Metoprolol Succinate (Toprol Xl) 50 mg DAILY PO Last administered on 03/05/18 09:40; Start 03/01/18 at 09:00 Fish Oil (Fish Oil) 1,000 mg DAILY PO Last administered on 03/05/18 09:39; Start 03/01/18 at 09:00 Multivitamins/ Minerals (I-Andre) 1 tab DAILY PO Last administered on 03/05/18 09:39; Start 03/01/18 at 09:00 Sertraline HCl (Zoloft) 25 mg DAILY PO Last administered on 03/02/18at 08:45; Start 03/01/18 at 09:00; Stop 03/03/18 at 08:00; Status DC Sertraline HCl (Zoloft) 50 mg DAILY PO Last administered on 03/05/18 09:40; Start 03/03/18 at 09:00 Quetiapine Fumarate (SEROquel) 12.5 mg BID@0900,1300 PO Last administered on 14:00; Start 03/02/18 at 09:00 Non-Formulary Medication 1 ea DAILY PO Last administered on 03/05/18 09:46; Start 03/05/18 at 09:00 Active Scripts Active Reported Lisinopril 5 Mg Tablet 5 Mg PO DAILY [id number] (Calcium Carbonate) 500 Mg Tablet 500 Mg PO DAILY Glucosamine Chondroitin Caplet (Gluc Emanuel Dipo Ch/Bg Emanuel/C/Sushant) 1 Each Tablet 1 Each PO DAILY Multivitamins (Multivitamin) 1 Each Tablet 1 Each PO [place] 3 Fish Oil Softgel ([place]-3 Fatty Acids/Fish Oil) 1 Each Capsule. 1 Each PO DAILY Aspirin 81 Mg Tab.chew 81 Mg PO DAILY Lipitor (Atorvastatin Calcium) 40 Mg Tablet 40 Mg PO DAILY Plavix (Clopidogrel Bisulfate) 75 Mg Tablet 75 Mg PO DAILY Metoprolol Succinate ( Xl ) (Metoprolol Succinate) 50 Mg Tab.er.24h 50 Mg PO DAILY I have reviewed the current psychotropics carefully including drug interactions. Risk benefit ratio favors no change other than as noted in my dictated progress note. Diagnosis: Problems: (1) Anxiety disorder (2) Impulse control disorder (3) Mild cognitive impairment (4) Major depressive disorder, recurrent episode DAVY CISNEROS MD Mar 05, 2018 20:22
--- NOTE | 2018-03-05 21:42 | NUR ---
Patient had shower and then asked for reading material. Pleasant and calm, withdrawn to room. Patient has no HS medications, and put self to bed at around 2100. Patient denies pain and/or discomfort.
--- NOTE | 2018-03-06 05:32 | NUR ---
Patient became irritated with roommate due to bed alarm going off repeatedly. Yelling out at roommate and so staff intervened. Will continue to monitor.
[2018-03-06 06:16] VITALS: BP 157/71
[2018-03-06] MEDS: OMEGA-3 FATTY ACIDS/FISH OIL 1,000 MG CAPSULE. PO SCH (08:03)
[2018-03-06] MEDS: ASPIRIN 81 MG TAB.CHEW PO SCH (08:03)
[2018-03-06] MEDS: MULTIVITAMIN I-VITE TABLET. PO SCH (08:03)
[2018-03-06] MEDS: GLUCOSAMINE/CHOND 500/400MG CAPSULE PO SCH (08:03)
[2018-03-06] MEDS: QUEtiapine 25 MG TABLET. PO SCH ×2 (08:03→12:19)
[2018-03-06] MEDS: METOPROLOL SUCC 24HR ER 50 MG TAB.ER.24H. PO SCH (08:04)
[2018-03-06] MEDS: SERTRALINE 50 MG TABLET. PO SCH (08:04)
[2018-03-06] MEDS: CALCIUM CARBONATE 500 MG TABLET PO SCH (08:05)
[2018-03-06] MEDS: LISINOPRIL 5 MG TABLET. PO SCH (08:05)
[2018-03-06] MEDS: CLOPIDOGREL BISULFATE 75 MG TABLET PO SCH (08:05)
[2018-03-06] MEDS: ROSUVASTATIN 20 MG PO SCH (08:06)
--- NOTE | 2018-03-06 13:09 | PN ---
DATE: 03/04/2018 PSYCHIATRIC PROGRESS NOTE This is a late entry 03/04/2018, covers elements not covered in my initial note 03/04/2018. SUBJECTIVE: I met with the patient at great length in his room. He wanted to shut the room as I sat with him across the room on the second bed in the room and he sat on the first. He said he had waited to see me since he was told I needed to evaluate him before he could leave. We discussed circumstances prompting admission. He denies all of that. Remote memory is reasonable. 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 Able to tell me that he was in the [employer] after the end of the Second World War, but unspecific on the dates, resistive with cares at times, less paranoid, verbal open, forthcoming as compared to a few days back. REVIEW OF SYSTEMS: No CV, , pulmonary, eye, ENT system symptoms on review. Reliability varies. MENTAL STATUS EXAM: Oriented to himself, situation. Insight, judgment, recent memory is impaired. Language function intact. Attention span short. Mood and affect remain somewhat anxious, labile. LABORATORY DATA: Reviewed. IMPRESSION: Major neurocognitive disorder, Alzheimer, vascular with delusion, depression. Rest unchanged. PLAN: Continue current psychotropics, Zoloft has been increased to 50 mg a day, Seroquel 12.5 b.i.d., may need to increase further. Consider Depakote or BuSpar if needed clinically. MAN Rafal CISNEROS MD DR: NOREEN/charly JOB#: [id number] / [id number]
--- NOTE | 2018-03-06 13:55 | NUR ---
Behavior Intervention Response and Plan: BIRP Note: Behavior: Assumed Care of patient, patient located in Patient Room at shift change. Patient exhibited the following behavior Interactive, Calm, Compliant. Brief assessment on rounds of vital signs, medication needs, lab studies, and pain. Treatment plan problems 1-2. Intervention: Patient assessed and the following interventions initiated safety checks 15 Minute Checks Cognitive Assessment , Head to toe Assessment , Medications. Response: After interactions and interventions patient responded in the following manner, Compliant , Calm ,Interactive. Continue to assess behaviors and condition will continue to monitor throughout the shift as needed. Patient educated on ADL's, and hand hygiene. 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 Continue to assess patient for changes in above assessment. Monitor for medication needs, pain, and safety concerns. Hourly rounding performed to ensure safe environment.
[2018-03-06 16:05] VITALS: BP 98/57
--- NOTE | 2018-03-06 20:46 | PDOC ---
Exam Note: Harinder Note: Please also refer to the separate dictated note~for this date of service dictated separately.~Patient seen individually. Discussed the patient with Nursing staff reviewed the chart.~Reviewed interim history and current functioning. Reviewed vital signs,~Labs/ Radiology~and current medications noted below. Continue current treatment with the changes noted in the dictated addendum note Assessment: Vital Signs: Vital Signs Date Time Temp Pulse Resp B/P (MAP) Pulse Ox O2 Delivery O2 Flow Rate FiO2 03/06/18 16:05 98.2 72 20 98/57 (71) 98 03/02/18 16:22 Room Air I&O Intake and Output 03/06/18 07:00 Intake Total 720 ml Balance 720 ml Intake Oral 720 ml Current Medications: Meds: Current Medications Olanzapine (ZyPREXA ZYDIS) 1.25 mg PRN Q2HR PRN PO PSYCHOSIS Last administered on 02/28/18at 12:19; Start 02/28/18 at 12:00 Acetaminophen (Tylenol) 650 mg PRN Q6HRS PRN PO PAIN / TEMP; Start 02/28/18 at 13:15 Multi-Ingredient Ointment (Analgesic [place]) 1 sophia PRN QID PRN TP MUSCLE PAIN; Start 02/28/18 at 13:15 Al Hydroxide/Mg Hydroxide (Mylanta Plus Xs) 15 ml PRN AFTMEALHC PRN PO DYSPEPSIA; Start 02/28/18 at 13:15 Magnesium Hydroxide (Milk Of Magnesia) 2,400 mg PRN QHS PRN PO CONSTIPATION; Start 02/28/18 at 13:15 Calcium Carbonate/ Glycine (Oscal) 500 mg DAILY PO Last administered on at 08:05; Start 03/01/18 at 09:00 Clopidogrel Bisulfate (Plavix) 75 mg DAILY PO Last administered on 03/06/18at 08 :05; Start 03/01/18 at 09:00 Lisinopril (Prinivil) 5 mg DAILY PO Last administered on 03/06/18at 08:05; Start 03/01/18 at 09:00 Aspirin (Children'S Aspirin) 81 mg DAILYWBKFT PO Last administered on at 08:03; Start 03/01/18 at 08:00 Atorvastatin Calcium (Lipitor) 40 mg DAILY PO Last administered on 03/04/18at 08: 25; Start 03/01/18 at 09:00; Stop 03/04/18 at 13:36; Status DC Glucosamine/ Chondroitin (Glucosamine-Chondroitin 500/400mg) 1 cap DAILY PO Last administered on 03/06/18at 08:03; Start 03/01/18 at 09:00 Metoprolol Succinate (Toprol Xl) 50 mg DAILY PO Last administered on 03/06/18 08:04; Start 03/01/18 at 09:00 Fish Oil (Fish Oil) 1,000 mg DAILY PO Last administered on 03/06/18 08:03; Start 03/01/18 at 09:00 Multivitamins/ Minerals (I-Andre) 1 tab DAILY PO Last administered on 03/06/18 08:03; Start 03/01/18 at 09:00 Sertraline HCl (Zoloft) 25 mg DAILY PO Last administered on 03/02/18at 08:45; Start 03/01/18 at 09:00; Stop 03/03/18 at 08:00; Status DC Sertraline HCl (Zoloft) 50 mg DAILY PO Last administered on 03/06/18at 08:04; Start 03/03/18 at 09:00 Quetiapine Fumarate (SEROquel) 12.5 mg BID@0900,1300 PO Last administered on 08/13at 12:19; Start 03/02/18 at 09:00 Non-Formulary Medication 1 ea DAILY PO Last administered on 03/06/18at 08:06; Start 03/05/18 at 09:00 Active Scripts Active Reported Lisinopril 5 Mg Tablet 5 Mg PO DAILY [id number] (Calcium Carbonate) 500 Mg Tablet 500 Mg PO DAILY Glucosamine Chondroitin [place] (Gluc Emanuel Dipo Ch/Bg Emanuel/C/Sushant) 1 Each Tablet 1 Each PO DAILY Multivitamins (Multivitamin) 1 Each Tablet 1 Each PO [place] 3 Fish Oil Softgel ([place]-3 Fatty Acids/Fish Oil) 1 Each Capsule. 1 Each PO DAILY Aspirin 81 Mg Tab.chew 81 Mg PO DAILY Lipitor (Atorvastatin Calcium) 40 Mg Tablet 40 Mg PO DAILY Plavix (Clopidogrel Bisulfate) 75 Mg Tablet 75 Mg PO DAILY Metoprolol Succinate ( Xl ) (Metoprolol Succinate) 50 Mg Tab.er.24h 50 Mg PO DAILY I have reviewed the current psychotropics carefully including drug interactions. Risk benefit ratio favors no change other than as noted in my dictated progress note. Diagnosis: Problems: (1) Anxiety disorder (2) Impulse control disorder (3) Mild cognitive impairment (4) Major depressive disorder, recurrent episode DAVY CISNEROS MD Mar 06, 2018 20:45
--- NOTE | 2018-03-06 23:03 | NUR ---
Behavior Intervention Response and Plan: BIRP Note: Behavior: Assumed Care of patient, patient located in Day Room at shift change. Patient exhibited the following behavior Calm, Compliant, Withdrawn. Brief assessment on rounds of vital signs, medication needs, lab studies, and pain. Treatment plan problems . Intervention: Patient assessed and the following interventions initiated safety checks 15 Minute Checks Head to toe Assessment , Cognitive Assessment , Medications. Response: After interactions and interventions patient responded in the following manner, Able to Focus on Task , Cooperative ,Compliant. Continue to assess behaviors and condition will continue to monitor throughout the shift as needed. Patient educated on ADL's, and hand hygiene. 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 Continue to assess patient for changes in above assessment. Monitor for medication needs, pain, and safety concerns. Hourly rounding performed to ensure safe environment.
--- NOTE | 2018-03-07 02:04 | PN ---
DATE: 03/05/2018 This is a late entry for 03/05/2018 and covers elements not covered in my initial note of 03/05/2018. SUBJECTIVE: I met with the patient in the evening in his room. He has been pleasant, somewhat forgetful, confused, unaware of the year and where he is, but confused why he is here or how long he has been here, believing he has been here for "many weeks." REVIEW OF SYSTEMS: No CV, , pulmonary, eye, ENT system symptoms on review. Reliability poor. MENTAL STATUS EXAM: Oriented to himself. Insight, judgment, recent memory is impaired. Language function intact. Attention span short. Mood and affect remain somewhat anxious, labile. LABORATORY DATA: Reviewed. IMPRESSION: Unchanged from initial note. PLAN: Continue psychotropics from my initial note. MAN Rafal CISNEROS MD DR: NOREEN/charly JOB#: [id number] / [id number]
[2018-03-07 05:49] VITALS: BP 129/63
[2018-03-07] MEDS: ASPIRIN 81 MG TAB.CHEW PO SCH (08:59)
[2018-03-07] MEDS: OMEGA-3 FATTY ACIDS/FISH OIL 1,000 MG CAPSULE. PO SCH (09:00)
[2018-03-07] MEDS: MULTIVITAMIN I-VITE TABLET. PO SCH (09:00)
[2018-03-07] MEDS: CALCIUM CARBONATE 500 MG TABLET PO SCH (09:00)
[2018-03-07] MEDS: GLUCOSAMINE/CHOND 500/400MG CAPSULE PO SCH (09:00)
[2018-03-07] MEDS: LISINOPRIL 5 MG TABLET. PO SCH (09:00)
[2018-03-07] MEDS: SERTRALINE 50 MG TABLET. PO SCH (09:00)
[2018-03-07] MEDS: METOPROLOL SUCC 24HR ER 50 MG TAB.ER.24H. PO SCH (09:00)
[2018-03-07] MEDS: CLOPIDOGREL BISULFATE 75 MG TABLET PO SCH (09:01)
[2018-03-07] MEDS: QUEtiapine 25 MG TABLET. PO SCH ×2 (09:01→12:42)
[2018-03-07] MEDS: ROSUVASTATIN 20 MG PO SCH (09:02)
[2018-03-07 16:44] VITALS: BP 94/54
--- NOTE | 2018-03-07 20:00 | NUR ---
Behavior Intervention Response and Plan: BIRP Note: Behavior: Assumed Care of patient, patient located in Patient Room at shift change. Patient exhibited the following behavior Calm, Compliant, Compliant. Brief assessment on rounds of vital signs, medication needs, lab studies, and pain. Treatment plan problems . Intervention: Patient assessed and the following interventions initiated safety checks 15 Minute Checks Cognitive Assessment , Head to toe Assessment , Medications. Response: After interactions and interventions patient responded in the following manner, Drowsy , Cooperative ,Calm. Continue to assess behaviors and condition will continue to monitor throughout the shift as needed. Patient educated on ADL's, and hand hygiene. Plan: Continue to monitor Master Treatment Plan for patient's progress toward short term goals of Decreased Agitation, No harm To self/ others, senior care goals to return to previous living setting vs placement. Continue to assess patient for changes in above assessment. Monitor for medication needs, pain, and safety concerns. Hourly rounding performed to ensure safe environment.
--- NOTE | 2018-03-07 20:08 | PDOC ---
Exam Note: Harinder Note: Please also refer to the separate dictated note~for this date of service dictated separately.~Patient seen individually. Discussed the patient with Nursing staff reviewed the chart.~Reviewed interim history and current functioning. Reviewed vital signs,~Labs/ Radiology~and current medications noted below. Continue current treatment with the changes noted in the dictated addendum note Assessment: Vital Signs: Vital Signs Date Time Temp Pulse Resp B/P (MAP) Pulse Ox O2 Delivery O2 Flow Rate FiO2 03/07/18 16:44 97.6 54 18 94/54 (67) 98 Room Air I&O Intake and Output 03/07/18 07:00 Intake Total 960 ml Balance 960 ml Intake Oral 960 ml Current Medications: Meds: Current Medications Olanzapine (ZyPREXA ZYDIS) 1.25 mg PRN Q2HR PRN PO PSYCHOSIS Last administered on 02/28/18at 12:19; Start 02/28/18 at 12:00 Acetaminophen (Tylenol) 650 mg PRN Q6HRS PRN PO PAIN / TEMP; Start 02/28/18 at 13:15 Multi-Ingredient Ointment (Analgesic [place]) 1 sophia PRN QID PRN TP MUSCLE PAIN; Start 02/28/18 at 13:15 Al Hydroxide/Mg Hydroxide (Mylanta Plus Xs) 15 ml PRN AFTMEALHC PRN PO DYSPEPSIA; Start 02/28/18 at 13:15 Magnesium Hydroxide (Milk Of Magnesia) 2,400 mg PRN QHS PRN PO CONSTIPATION; Start 02/28/18 at 13:15 Calcium Carbonate/ Glycine (Oscal) 500 mg DAILY PO Last administered on at 09:00; Start 03/01/18 at 09:00 Clopidogrel Bisulfate (Plavix) 75 mg DAILY PO Last administered on 03/07/18at 09 :01; Start 03/01/18 at 09:00 Lisinopril (Prinivil) 5 mg DAILY PO Last administered on 03/07/18at 09:00; Start 03/01/18 at 09:00 Aspirin (Children'S Aspirin) 81 mg DAILYWBKFT PO Last administered on at 08:59; Start 03/01/18 at 08:00 Atorvastatin Calcium (Lipitor) 40 mg DAILY PO Last administered on 03/04/18at 08: 25; Start 03/01/18 at 09:00; Stop 03/04/18 at 13:36; Status DC Glucosamine/ Chondroitin (Glucosamine-Chondroitin 500/400mg) 1 cap DAILY PO Last administered on 03/07/18at 09:00; Start 03/01/18 at 09:00 Metoprolol Succinate (Toprol Xl) 50 mg DAILY PO Last administered on 03/07/18at 09:00; Start 03/01/18 at 09:00 Fish Oil (Fish Oil) 1,000 mg DAILY PO Last administered on 03/07/18at 09:00; Start 03/01/18 at 09:00 Multivitamins/ Minerals (I-Andre) 1 tab DAILY PO Last administered on 03/07/18at 09:00; Start 03/01/18 at 09:00 Sertraline HCl (Zoloft) 25 mg DAILY PO Last administered on 03/02/18at 08:45; Start 03/01/18 at 09:00; Stop 03/03/18 at 08:00; Status DC Sertraline HCl (Zoloft) 50 mg DAILY PO Last administered on 03/07/18at 09:00; Start 03/03/18 at 09:00 Quetiapine Fumarate (SEROquel) 12.5 mg BID@0900,1300 PO Last administered on 09/12at 12:42; Start 03/02/18 at 09:00 Non-Formulary Medication 1 ea DAILY PO Last administered on 03/07/18at 09:02; Start 03/05/18 at 09:00 Active Scripts Active Reported Lisinopril 5 Mg Tablet 5 Mg PO DAILY [id number] (Calcium Carbonate) 500 Mg Tablet 500 Mg PO DAILY Glucosamine Chondroitin [place] (Gluc Emanuel Dipo Ch/Bg Emanuel/C/Sushant) 1 Each Tablet 1 Each PO DAILY Multivitamins (Multivitamin) 1 Each Tablet 1 Each PO [place] 3 Fish Oil Softgel ([place]-3 Fatty Acids/Fish Oil) 1 Each Capsule. 1 Each PO DAILY Aspirin 81 Mg Tab.chew 81 Mg PO DAILY Lipitor (Atorvastatin Calcium) 40 Mg Tablet 40 Mg PO DAILY Plavix (Clopidogrel Bisulfate) 75 Mg Tablet 75 Mg PO DAILY Metoprolol Succinate ( Xl ) (Metoprolol Succinate) 50 Mg Tab.er.24h 50 Mg PO DAILY I have reviewed the current psychotropics carefully including drug interactions. Risk benefit ratio favors no change other than as noted in my dictated progress note. Diagnosis: Problems: (1) Anxiety disorder (2) Impulse control disorder (3) Mild cognitive impairment (4) Major depressive disorder, recurrent episode DAVY CISNEROS MD Mar 07, 2018 20:08
--- NOTE | 2018-03-07 23:49 | PN ---
DATE: 03/06/2018 PSYCHIATRIC PROGRESS NOTE This is a late entry 03/06/2018 covers elements not covered in my initial note. SUBJECTIVE: I met with the patient in the evening. The patient slept 5 hours previous evening, met with him in his room at some length. Appetite fair. He is compliant with his medications. REVIEW OF SYSTEMS: No CV, , pulmonary, eye, ENT system symptoms on review. Pleasant, verbal, more forthcoming less paranoid. MENTAL STATUS EXAM: Oriented to himself. Insight, judgment, recent memory is impaired. Language function intact. Attention span short. Mood and affect remains somewhat dysphoric, but showing improvement. LABORATORY DATA: Reviewed. IMPRESSION: Unchanged from initial note. PLAN: Continue psychotropics from my initial note. Adjust as clinically indicated. MAN Rafal CISNEROS MD DR: NOREEN/charly JOB#: [id number] / [id number]
[2018-03-08 06:12] VITALS: BP 136/60
[2018-03-08] MEDS: QUEtiapine 25 MG TABLET. PO SCH ×2 (08:09→13:06)
[2018-03-08] MEDS: ASPIRIN 81 MG TAB.CHEW PO SCH (08:09)
[2018-03-08] MEDS: OMEGA-3 FATTY ACIDS/FISH OIL 1,000 MG CAPSULE. PO SCH (08:09)
[2018-03-08] MEDS: MULTIVITAMIN I-VITE TABLET. PO SCH (08:10)
[2018-03-08] MEDS: SERTRALINE 50 MG TABLET. PO SCH (08:10)
[2018-03-08] MEDS: CALCIUM CARBONATE 500 MG TABLET PO SCH (08:10)
[2018-03-08] MEDS: CLOPIDOGREL BISULFATE 75 MG TABLET PO SCH (08:10)
[2018-03-08] MEDS: GLUCOSAMINE/CHOND 500/400MG CAPSULE PO SCH (08:10)
[2018-03-08] MEDS: METOPROLOL SUCC 24HR ER 50 MG TAB.ER.24H. PO SCH (08:10)
[2018-03-08] MEDS: ROSUVASTATIN 20 MG PO SCH (08:11)
[2018-03-08] MEDS: LISINOPRIL 5 MG TABLET. PO SCH (08:11)
--- NOTE | 2018-03-08 11:46 | NUR ---
Patient compliant with medications, denies pain. Stated that his roommate keeps him up at night because "he moves around a lot". Patient spends most of his time in his room and has been cooperative. Patient self performs ADLs.
--- NOTE | 2018-03-08 15:00 | NUR ---
WEEKLY THERAPEUTIC RECREATION NOTE Date of Admission: 02/28/2018 Date of AT Assessment: 03/03/2018 Goal aimed: to increase socialization and leisure awareness Initial goal: Pt. will participate in at least two groups a day. Weekly progress towards goal: Achieved Group participation level: Minimal Behaviors observed: Sometimes he engages in groups activities that he likes, and at times he has no interest at all in groups. Antisocial at times. Plan: No change to plan.
[2018-03-08 16:25] VITALS: BP 96/44
--- NOTE | 2018-03-08 20:00 | NUR ---
Behavior Intervention Response and Plan: BIRP Note: Behavior: Assumed Care of patient, patient located in Patient Room at shift change. Patient exhibited the following behavior Cooperative, Disorganized, Anxious. Brief assessment on rounds of vital signs, medication needs, lab studies, and pain. Treatment plan problems . Intervention: Patient assessed and the following interventions initiated safety checks 15 Minute Checks Cognitive Assessment , Head to toe Assessment , Medications. Response: After interactions and interventions patient responded in the following manner, Disorganized , Compliant ,Delusions. Continue to assess behaviors and condition will continue to monitor throughout the shift as needed. Patient educated on ADL's, and hand hygiene. 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 Continue to assess patient for changes in above assessment. Monitor for medication needs, pain, and safety concerns. Hourly rounding performed to ensure safe environment.
--- NOTE | 2018-03-08 20:54 | PDOC ---
Exam Note: Harinder Note: Please also refer to the separate dictated note~for this date of service dictated separately.~Patient seen individually. Discussed the patient with Nursing staff reviewed the chart.~Reviewed interim history and current functioning. Reviewed vital signs,~Labs/ Radiology~and current medications noted below. Continue current treatment with the changes noted in the dictated addendum note Assessment: Vital Signs: Vital Signs Date Time Temp Pulse Resp B/P (MAP) Pulse Ox O2 Delivery O2 Flow Rate FiO2 03/08/18 16:25 97.6 53 16 96/44 (61) 100 03/07/18 16:44 Room Air I&O Intake and Output 03/08/18 07:00 Intake Total 820 ml Balance 820 ml Intake Oral 820 ml Current Medications: Meds: Current Medications Olanzapine (ZyPREXA ZYDIS) 1.25 mg PRN Q2HR PRN PO PSYCHOSIS Last administered on 02/28/18at 12:19; Start 02/28/18 at 12:00 Acetaminophen (Tylenol) 650 mg PRN Q6HRS PRN PO PAIN / TEMP; Start 02/28/18 at 13:15 Multi-Ingredient Ointment (Analgesic [place]) 1 sophia PRN QID PRN TP MUSCLE PAIN; Start 02/28/18 at 13:15 Al Hydroxide/Mg Hydroxide (Mylanta Plus Xs) 15 ml PRN AFTMEALHC PRN PO DYSPEPSIA; Start 02/28/18 at 13:15 Magnesium Hydroxide (Milk Of Magnesia) 2,400 mg PRN QHS PRN PO CONSTIPATION; Start 02/28/18 at 13:15 Calcium Carbonate/ Glycine (Oscal) 500 mg DAILY PO Last administered on at 08:10; Start 03/01/18 at 09:00 Clopidogrel Bisulfate (Plavix) 75 mg DAILY PO Last administered on 03/08/18at 08 :10; Start 03/01/18 at 09:00 Lisinopril (Prinivil) 5 mg DAILY PO Last administered on 03/08/18at 08:11; Start 03/01/18 at 09:00 Aspirin (Children'S Aspirin) 81 mg DAILYWBKFT PO Last administered on at 08:09; Start 03/01/18 at 08:00 Atorvastatin Calcium (Lipitor) 40 mg DAILY PO Last administered on 03/04/18 08: 25; Start 03/01/18 at 09:00; Stop 03/04/18 at 13:36; Status DC Glucosamine/ Chondroitin (Glucosamine-Chondroitin 500/400mg) 1 cap DAILY PO Last administered on 03/08/18at 08:10; Start 03/01/18 at 09:00 Metoprolol Succinate (Toprol Xl) 50 mg DAILY PO Last administered on 03/08/18 08:10; Start 03/01/18 at 09:00 Fish Oil (Fish Oil) 1,000 mg DAILY PO Last administered on 03/08/18at 08:09; Start 03/01/18 at 09:00 Multivitamins/ Minerals (I-Andre) 1 tab DAILY PO Last administered on 03/08/18 08:10; Start 03/01/18 at 09:00 Sertraline HCl (Zoloft) 25 mg DAILY PO Last administered on 03/02/18at 08:45; Start 03/01/18 at 09:00; Stop 03/03/18 at 08:00; Status DC Sertraline HCl (Zoloft) 50 mg DAILY PO Last administered on 03/08/18at 08:10; Start 03/03/18 at 09:00 Quetiapine Fumarate (SEROquel) 12.5 mg BID@0900,1300 PO Last administered on at 13:06; Start 03/02/18 at 09:00 Non-Formulary Medication 1 ea DAILY PO Last administered on 03/08/18at 08:11; Start 03/05/18 at 09:00 Active Scripts Active Reported Lisinopril 5 Mg Tablet 5 Mg PO DAILY [id number] (Calcium Carbonate) 500 Mg Tablet 500 Mg PO DAILY Glucosamine Chondroitin Caplet (Gluc Emanuel Dipo Ch/Bg Emanuel/C/Sushant) 1 Each Tablet 1 Each PO DAILY Multivitamins (Multivitamin) 1 Each Tablet 1 Each PO [place] 3 Fish Oil Softgel ([place]-3 Fatty Acids/Fish Oil) 1 Each Capsule. 1 Each PO DAILY Aspirin 81 Mg Tab.chew 81 Mg PO DAILY Lipitor (Atorvastatin Calcium) 40 Mg Tablet 40 Mg PO DAILY Plavix (Clopidogrel Bisulfate) 75 Mg Tablet 75 Mg PO DAILY Metoprolol Succinate ( Xl ) (Metoprolol Succinate) 50 Mg Tab.er.24h 50 Mg PO DAILY I have reviewed the current psychotropics carefully including drug interactions. Risk benefit ratio favors no change other than as noted in my dictated progress note. Diagnosis: Problems: (1) Anxiety disorder (2) Impulse control disorder (3) Mild cognitive impairment (4) Major depressive disorder, recurrent episode DAVY CISNEROS MD Mar 08, 2018 20:54
--- NOTE | 2018-03-08 22:07 | PN ---
DATE: 03/07/2018 This late entry for 03/07/2018 covers elements not covered in my initial note of 03/07/2018. SUBJECTIVE: I met with the patient in the evening. The patient remains somewhat confused, forgetful, minimizes this. REVIEW OF SYSTEMS: No CV, , pulmonary, eye, ENT system symptoms on review. MENTAL STATUS EXAM: Oriented to himself and situation. Speech moderate latency, often responses monosyllabic. Abstraction fair, computation impaired, language function intact. Attention span short. He is less paranoid, little more forthcoming, verbal with brief smiling. No suicidal or homicidal ideation. LABORATORY DATA: Reviewed. IMPRESSION: Unchanged from initial note. PLAN: Current psychotropics from initial note. MAN Rafal CISNEROS MD DR: NOREEN/charly JOB#: [id number] / [id number]
[2018-03-09 05:51] VITALS: BP 125/59
[2018-03-09] MEDS: CLOPIDOGREL BISULFATE 75 MG TABLET PO SCH (09:32)
[2018-03-09] MEDS: MULTIVITAMIN I-VITE TABLET. PO SCH (09:32)
[2018-03-09] MEDS: OMEGA-3 FATTY ACIDS/FISH OIL 1,000 MG CAPSULE. PO SCH (09:32)
[2018-03-09] MEDS: QUEtiapine 25 MG TABLET. PO SCH ×2 (09:32→14:23)
[2018-03-09] MEDS: ASPIRIN 81 MG TAB.CHEW PO SCH (09:32)
[2018-03-09] MEDS: LISINOPRIL 5 MG TABLET. PO SCH (09:33)
[2018-03-09] MEDS: METOPROLOL SUCC 24HR ER 50 MG TAB.ER.24H. PO SCH (09:33)
[2018-03-09] MEDS: CALCIUM CARBONATE 500 MG TABLET PO SCH (09:33)
[2018-03-09] MEDS: GLUCOSAMINE/CHOND 500/400MG CAPSULE PO SCH (09:33)
[2018-03-09] MEDS: SERTRALINE 50 MG TABLET. PO SCH (09:33)
[2018-03-09] MEDS: ROSUVASTATIN 20 MG PO SCH (09:34)
[2018-03-09 16:46] VITALS: BP 97/54
--- NOTE | 2018-03-09 16:55 | NUR ---
Behavior Intervention Response and Plan: BIRP Note: Behavior: Assumed Care of patient, patient located in Patient Room at shift change. Patient exhibited the following behavior Calm, Sleeping, Cooperative. Brief assessment on rounds of vital signs, medication needs, lab studies, and pain. Treatment plan problems 1 and 2. Intervention: Patient assessed and the following interventions initiated safety checks 15 Minute Checks Cognitive Assessment , Head to toe Assessment , Medications. Response: After interactions and interventions patient responded in the following manner, Calm , Interactive ,Compliant. Continue to assess behaviors and condition will continue to monitor throughout the shift as needed. Patient educated on ADL's, and hand hygiene. 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 Continue to assess patient for changes in above assessment. Monitor for medication needs, pain, and safety concerns. Hourly rounding performed to ensure safe environment.
--- NOTE | 2018-03-09 16:56 | NUR ---
Patient cooperative with assessment and compliant with medications. He did state that he was sure he had already taken his morning medications, but was willing to take them when nurse told him he hadn't taken them yet. Took a nap after lunch. Spends time in room reading in his chair.
--- NOTE | 2018-03-09 21:00 | NUR ---
Behavior Intervention Response and Plan: BIRP Note: Behavior: Assumed Care of patient, patient located in Patient Room at shift change. Patient exhibited the following behavior Wandering, Calm, Disorganized. Brief assessment on rounds of vital signs, medication needs, lab studies, and pain. Treatment plan problems . Intervention: Patient assessed and the following interventions initiated safety checks 15 Minute Checks Cognitive Assessment , Head to toe Assessment , Medications. Response: After interactions and interventions patient responded in the following manner, Disorganized , Interactive ,Calm. Continue to assess behaviors and condition will continue to monitor throughout the shift as needed. Patient educated on ADL's, and hand hygiene. Plan: Continue to monitor Master Treatment Plan for patient's progress toward short term goals of Decreased Aggression, Decreased Anxiety, half-way goals to return to previous living setting vs placement. Continue to assess patient for changes in above assessment. Monitor for medication needs, pain, and safety concerns. Hourly rounding performed to ensure safe environment.
--- NOTE | 2018-03-09 22:26 | PDOC ---
Exam Note: Harinder Note: Please also refer to the separate dictated note~for this date of service dictated separately.~Patient seen individually. Discussed the patient with Nursing staff reviewed the chart.~Reviewed interim history and current functioning. Reviewed vital signs,~Labs/ Radiology~and current medications noted below. Continue current treatment with the changes noted in the dictated addendum note Assessment: Vital Signs: Vital Signs Date Time Temp Pulse Resp B/P (MAP) Pulse Ox O2 Delivery O2 Flow Rate FiO2 03/09/18 16:46 97.3 52 17 97/54 (68) 99 Room Air I&O Intake and Output 03/09/18 07:00 Intake Total 960 ml Balance 960 ml Intake Oral 960 ml Current Medications: Meds: Current Medications Olanzapine (ZyPREXA ZYDIS) 1.25 mg PRN Q2HR PRN PO PSYCHOSIS Last administered on 02/28/18at 12:19; Start 02/28/18 at 12:00 Acetaminophen (Tylenol) 650 mg PRN Q6HRS PRN PO PAIN / TEMP; Start 02/28/18 at 13:15 Multi-Ingredient Ointment (Analgesic [place]) 1 sophia PRN QID PRN TP MUSCLE PAIN; Start 02/28/18 at 13:15 Al Hydroxide/Mg Hydroxide (Mylanta Plus Xs) 15 ml PRN AFTMEALHC PRN PO DYSPEPSIA; Start 02/28/18 at 13:15 Magnesium Hydroxide (Milk Of Magnesia) 2,400 mg PRN QHS PRN PO CONSTIPATION; Start 02/28/18 at 13:15 Calcium Carbonate/ Glycine (Oscal) 500 mg DAILY PO Last administered on at 09:33; Start 03/01/18 at 09:00 Clopidogrel Bisulfate (Plavix) 75 mg DAILY PO Last administered on 03/09/18at 09 :32; Start 03/01/18 at 09:00 Lisinopril (Prinivil) 5 mg DAILY PO Last administered on 03/09/18at 09:33; Start 03/01/18 at 09:00 Aspirin (Children'S Aspirin) 81 mg DAILYWBKFT PO Last administered on at 09:32; Start 03/01/18 at 08:00 Atorvastatin Calcium (Lipitor) 40 mg DAILY PO Last administered on 03/04/18at 08: 25; Start 03/01/18 at 09:00; Stop 03/04/18 at 13:36; Status DC Glucosamine/ Chondroitin (Glucosamine-Chondroitin 500/400mg) 1 cap DAILY PO Last administered on 03/09/18at 09:33; Start 03/01/18 at 09:00 Metoprolol Succinate (Toprol Xl) 50 mg DAILY PO Last administered on 03/09/18 09:33; Start 03/01/18 at 09:00 Fish Oil (Fish Oil) 1,000 mg DAILY PO Last administered on 03/09/18at 09:32; Start 03/01/18 at 09:00 Multivitamins/ Minerals (I-Andre) 1 tab DAILY PO Last administered on 03/09/18 09:32; Start 03/01/18 at 09:00 Sertraline HCl (Zoloft) 25 mg DAILY PO Last administered on 03/02/18at 08:45; Start 03/01/18 at 09:00; Stop 03/03/18 at 08:00; Status DC Sertraline HCl (Zoloft) 50 mg DAILY PO Last administered on 03/09/18at 09:33; Start 03/03/18 at 09:00; Stop 03/09/18 at 10:49; Status DC Quetiapine Fumarate (SEROquel) 12.5 mg BID@0900,1300 PO Last administered on at 14:23; Start 03/02/18 at 09:00 Non-Formulary Medication 1 ea DAILY PO Last administered on 03/09/18at 09:34; Start 03/05/18 at 09:00 Sertraline HCl (Zoloft) 75 mg DAILY PO ; Start 03/10/18 at 09:00 Active Scripts Active Reported Lisinopril 5 Mg Tablet 5 Mg PO DAILY [id number] (Calcium Carbonate) 500 Mg Tablet 500 Mg PO DAILY Glucosamine Chondroitin Caplet (Gluc Emanuel Dipo Ch/Bg Emanuel/C/Sushant) 1 Each Tablet 1 Each PO DAILY Multivitamins (Multivitamin) 1 Each Tablet 1 Each PO [place] 3 Fish Oil Softgel ([place]-3 Fatty Acids/Fish Oil) 1 Each Capsule.dr 1 Each PO DAILY Aspirin 81 Mg Tab.chew 81 Mg PO DAILY Lipitor (Atorvastatin Calcium) 40 Mg Tablet 40 Mg PO DAILY Plavix (Clopidogrel Bisulfate) 75 Mg Tablet 75 Mg PO DAILY Metoprolol Succinate ( Xl ) (Metoprolol Succinate) 50 Mg Tab.er.24h 50 Mg PO DAILY I have reviewed the current psychotropics carefully including drug interactions. Risk benefit ratio favors no change other than as noted in my dictated progress note. Diagnosis: Problems: (1) Anxiety disorder (2) Impulse control disorder (3) Mild cognitive impairment (4) Major depressive disorder, recurrent episode DAVY CISNEROS MD Mar 09, 2018 22:26
[2018-03-10 06:41] VITALS: BP 146/74
[2018-03-10] MEDS: CLOPIDOGREL BISULFATE 75 MG TABLET PO SCH (08:33)
[2018-03-10] MEDS: METOPROLOL SUCC 24HR ER 50 MG TAB.ER.24H. PO SCH (08:33)
[2018-03-10] MEDS: CALCIUM CARBONATE 500 MG TABLET PO SCH (08:33)
[2018-03-10] MEDS: GLUCOSAMINE/CHOND 500/400MG CAPSULE PO SCH (08:33)
[2018-03-10] MEDS: MULTIVITAMIN I-VITE TABLET. PO SCH (08:33)
[2018-03-10] MEDS: OMEGA-3 FATTY ACIDS/FISH OIL 1,000 MG CAPSULE. PO SCH (08:34)
[2018-03-10] MEDS: QUEtiapine 25 MG TABLET. PO SCH ×2 (08:34→13:06)
[2018-03-10] MEDS: ASPIRIN 81 MG TAB.CHEW PO SCH (08:34)
[2018-03-10] MEDS: ROSUVASTATIN 20 MG PO SCH (08:35)
[2018-03-10] MEDS: SERTRALINE 50 MG TABLET. PO SCH (08:38)
[2018-03-10] MEDS: LISINOPRIL 5 MG TABLET. PO SCH (08:38)
--- NOTE | 2018-03-10 08:48 | NUR ---
Nursing Note: Pt calm, compliant with medications, alert to place, year, ; however, unable to recall why he is here in the hospital.
--- NOTE | 2018-03-10 12:09 | NUR ---
assumed care of patient at 1200. Patient heading down to lunch at this time.
--- NOTE | 2018-03-10 15:55 | NUR ---
Assumed care of pt at 1555; pt calm and cooperative.
[2018-03-10 16:33] VITALS: BP 90/44
--- NOTE | 2018-03-10 20:20 | NUR ---
Behavior Intervention Response and Plan: BIRP Note: Behavior: Assumed Care of patient, patient located in Day Room at shift change. Patient exhibited the following behavior Restless, , Irritable. Brief assessment on rounds of vital signs, medication needs, lab studies, and pain. Treatment plan problems . Intervention: Patient assessed and the following interventions initiated safety checks 15 Minute Checks Cognitive Assessment , Head to toe Assessment , Medications. Response: After interactions and interventions patient responded in the following manner, Restless , Irritable ,Compliant. Continue to assess behaviors and condition will continue to monitor throughout the shift as needed. Patient educated on ADL's, and hand hygiene. Plan: Continue to monitor Master Treatment Plan for patient's progress toward short term goals of Decreased Agitation, Decreased Aggression, [facility] goals to return to previous living setting vs placement. Continue to assess patient for changes in above assessment. Monitor for medication needs, pain, and safety concerns. Hourly rounding performed to ensure safe environment.
--- NOTE | 2018-03-10 22:27 | PDOC ---
Exam Note: Harinder Note: Please also refer to the separate dictated note~for this date of service dictated separately.~Patient seen individually. Discussed the patient with Nursing staff reviewed the chart.~Reviewed interim history and current functioning. Reviewed vital signs,~Labs/ Radiology~and current medications noted below. Continue current treatment with the changes noted in the dictated addendum note Assessment: Vital Signs: Vital Signs Date Time Temp Pulse Resp B/P (MAP) Pulse Ox O2 Delivery O2 Flow Rate FiO2 03/10/18 16:33 98.2 57 16 90/44 (59) 95 Room Air I&O Intake and Output 03/10/18 07:00 Intake Total 732 ml Balance 732 ml Intake Oral 732 ml Current Medications: Meds: Current Medications Olanzapine (ZyPREXA ZYDIS) 1.25 mg PRN Q2HR PRN PO PSYCHOSIS Last administered on 02/28/18at 12:19; Start 02/28/18 at 12:00 Acetaminophen (Tylenol) 650 mg PRN Q6HRS PRN PO PAIN / TEMP; Start 02/28/18 at 13:15 Multi-Ingredient Ointment (Analgesic [place]) 1 sophia PRN QID PRN TP MUSCLE PAIN; Start 02/28/18 at 13:15 Al Hydroxide/Mg Hydroxide (Mylanta Plus Xs) 15 ml PRN AFTMEALHC PRN PO DYSPEPSIA; Start 02/28/18 at 13:15 Magnesium Hydroxide (Milk Of Magnesia) 2,400 mg PRN QHS PRN PO CONSTIPATION; Start 02/28/18 at 13:15 Calcium Carbonate/ Glycine (Oscal) 500 mg DAILY PO Last administered on at 08:33; Start 03/01/18 at 09:00 Clopidogrel Bisulfate (Plavix) 75 mg DAILY PO Last administered on 03/10/18at 08 :33; Start 03/01/18 at 09:00 Lisinopril (Prinivil) 5 mg DAILY PO Last administered on 03/10/18at 08:38; Start 03/01/18 at 09:00 Aspirin (Children'S Aspirin) 81 mg DAILYWBKFT PO Last administered on at 08:34; Start 03/01/18 at 08:00 Atorvastatin Calcium (Lipitor) 40 mg DAILY PO Last administered on 03/04/18at 08: 25; Start 03/01/18 at 09:00; Stop 03/04/18 at 13:36; Status DC Glucosamine/ Chondroitin (Glucosamine-Chondroitin 500/400mg) 1 cap DAILY PO Last administered on 03/10/18at 08:33; Start 03/01/18 at 09:00 Metoprolol Succinate (Toprol Xl) 50 mg DAILY PO Last administered on 03/10/18at 08:33; Start 03/01/18 at 09:00 Fish Oil (Fish Oil) 1,000 mg DAILY PO Last administered on 03/10/18at 08:34; Start 03/01/18 at 09:00 Multivitamins/ Minerals (I-Andre) 1 tab DAILY PO Last administered on 03/10/18at 08:33; Start 03/01/18 at 09:00 Sertraline HCl (Zoloft) 25 mg DAILY PO Last administered on 03/02/18at 08:45; Start 03/01/18 at 09:00; Stop 03/03/18 at 08:00; Status DC Sertraline HCl (Zoloft) 50 mg DAILY PO Last administered on 03/09/18at 09:33; Start 03/03/18 at 09:00; Stop 03/09/18 at 10:49; Status DC Quetiapine Fumarate (SEROquel) 12.5 mg BID@0900,1300 PO Last administered on at 13:06; Start 03/02/18 at 09:00 Non-Formulary Medication 1 ea DAILY PO Last administered on 03/10/18at 08:35; Start 03/05/18 at 09:00 Sertraline HCl (Zoloft) 75 mg DAILY PO Last administered on 03/10/18at 08:38; Start 03/10/18 at 09:00; Stop 03/12/18 at 09:30 Sertraline HCl (Zoloft) 100 mg DAILY PO ; Start 03/13/18 at 09:00 Active Scripts Active Reported Lisinopril 5 Mg Tablet 5 Mg PO DAILY [id number] (Calcium Carbonate) 500 Mg Tablet 500 Mg PO DAILY Glucosamine Chondroitin Caplet (Gluc Emanuel Dipo Ch/Bg Emanuel/C/Sushant) 1 Each Tablet 1 Each PO DAILY Multivitamins (Multivitamin) 1 Each Tablet 1 Each PO [place] 3 Fish Oil Softgel ([place]-3 Fatty Acids/Fish Oil) 1 Each Capsule.dr 1 Each PO DAILY Aspirin 81 Mg Tab.chew 81 Mg PO DAILY Lipitor (Atorvastatin Calcium) 40 Mg Tablet 40 Mg PO DAILY Plavix (Clopidogrel Bisulfate) 75 Mg Tablet 75 Mg PO DAILY Metoprolol Succinate ( Xl ) (Metoprolol Succinate) 50 Mg Tab.er.24h 50 Mg PO DAILY I have reviewed the current psychotropics carefully including drug interactions. Risk benefit ratio favors no change other than as noted in my dictated progress note. Diagnosis: Problems: (1) Anxiety disorder (2) Impulse control disorder (3) Mild cognitive impairment (4) Major depressive disorder, recurrent episode DAVY CISNEROS MD Mar 10, 2018 22:27
[2018-03-11 06:31] VITALS: BP 136/67
--- NOTE | 2018-03-11 07:07 | PN ---
DATE: 03/08/2018 PSYCHIATRIC PROGRESS NOTE This is a late entry for 03/08/2018, covers elements not covered in my initial note. SUBJECTIVE: I met with the patient in the evening. The patient slept 6-3/4 hours previous evening, seems not to like his roommate, remain somewhat anxious, withdrawn. REVIEW OF SYSTEMS: No CV, , pulmonary, eye system symptoms on review. MENTAL STATUS EXAM: Oriented to himself, situation. Insight, judgment, recent memory is impaired. Language function intact. Attention span short. Mood and affect still dysphoric, but improved. No suicidal or homicidal ideation. LABORATORY DATA: Reviewed. IMPRESSION: Unchanged from initial note. PLAN: Continue psychotropics from my initial note. MAN Rafal CISNEROS MD DR: NOREEN/charly JOB#: [id number] / [id number]
--- NOTE | 2018-03-11 07:09 | PN ---
DATE: 03/09/2018 PSYCHIATRIC PROGRESS NOTE This is a late entry for 03/09/2018, covers elements not covered in my initial note of 03/09/2018. SUBJECTIVE: I met with the patient's individually and also staffed at a treatment team meeting with the entire team. The patient's [id number] attended the conference. He is compliant with his medications, forgetful. Social service staff are looking for a level 2 placement for him. REVIEW OF SYSTEMS: No CV, , pulmonary, eye, ENT system symptoms on review. MENTAL STATUS EXAM: Oriented to himself and situation. Speech has some latency, coherent. Abstraction fair, computation impaired, language function intact. Short term memory is impaired. Appears less paranoid, less depressed, less anxious, more verbal as I met with him. LABORATORY DATA: Reviewed. IMPRESSION: Major neurocognitive disorder, Alzheimer, vascular with depression, delusion. Rest unchanged. PLAN: Increase Zoloft to 75 mg a day. Continue Seroquel. Rest of the psychotropics unchanged. MAN Rafal CISNEROS MD DR: NOREEN/charly JOB#: [id number] / [id number]
[2018-03-11] MEDS: ROSUVASTATIN 20 MG PO SCH (08:07)
[2018-03-11] MEDS: ASPIRIN 81 MG TAB.CHEW PO SCH (08:07)
[2018-03-11] MEDS: OMEGA-3 FATTY ACIDS/FISH OIL 1,000 MG CAPSULE. PO SCH (08:07)
[2018-03-11] MEDS: QUEtiapine 25 MG TABLET. PO SCH ×2 (08:08→13:00)
[2018-03-11] MEDS: MULTIVITAMIN I-VITE TABLET. PO SCH (08:08)
[2018-03-11] MEDS: GLUCOSAMINE/CHOND 500/400MG CAPSULE PO SCH (08:08)
[2018-03-11] MEDS: LISINOPRIL 5 MG TABLET. PO SCH (08:08)
[2018-03-11] MEDS: SERTRALINE 50 MG TABLET. PO SCH (08:09)
[2018-03-11] MEDS: CLOPIDOGREL BISULFATE 75 MG TABLET PO SCH (08:09)
[2018-03-11] MEDS: METOPROLOL SUCC 24HR ER 50 MG TAB.ER.24H. PO SCH (08:09)
[2018-03-11] MEDS: CALCIUM CARBONATE 500 MG TABLET PO SCH (08:09)
[2018-03-11 16:12] VITALS: BP 103/51
--- NOTE | 2018-03-11 20:30 | NUR ---
Behavior Intervention Response and Plan: BIRP Note: Behavior: Assumed Care of patient, patient located in Patient Room at shift change. Patient exhibited the following behavior Calm, Compliant, Withdrawn. Brief assessment on rounds of vital signs, medication needs, lab studies, and pain. Treatment plan problems . Intervention: Patient assessed and the following interventions initiated safety checks 15 Minute Checks Cognitive Assessment , Head to toe Assessment , Oral Hydration. Response: After interactions and interventions patient responded in the following manner, Calm , Compliant ,Withdrawn. Continue to assess behaviors and condition will continue to monitor throughout the shift as needed. Patient educated on ADL's, and hand hygiene. 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 Continue to assess patient for changes in above assessment. Monitor for medication needs, pain, and safety concerns. Hourly rounding performed to ensure safe environment.
--- NOTE | 2018-03-11 22:31 | PDOC ---
Exam Note: Harinder Note: Please also refer to the separate dictated note~for this date of service dictated separately.~Patient seen individually. Discussed the patient with Nursing staff reviewed the chart.~Reviewed interim history and current functioning. Reviewed vital signs,~Labs/ Radiology~and current medications noted below. Continue current treatment with the changes noted in the dictated addendum note Assessment: Vital Signs: Vital Signs Date Time Temp Pulse Resp B/P (MAP) Pulse Ox O2 Delivery O2 Flow Rate FiO2 03/11/18 16:12 98.3 50 16 103/51 (68) 97 Room Air I&O Intake and Output 03/11/18 07:01 Intake Total 600 ml Balance 600 ml Intake Oral 600 ml Current Medications: Meds: Current Medications Olanzapine (ZyPREXA ZYDIS) 1.25 mg PRN Q2HR PRN PO PSYCHOSIS Last administered on 02/28/18at 12:19; Start 02/28/18 at 12:00 Acetaminophen (Tylenol) 650 mg PRN Q6HRS PRN PO PAIN / TEMP; Start 02/28/18 at 13:15 Multi-Ingredient Ointment (Analgesic [place]) 1 sophia PRN QID PRN TP MUSCLE PAIN; Start 02/28/18 at 13:15 Al Hydroxide/Mg Hydroxide (Mylanta Plus Xs) 15 ml PRN AFTMEALHC PRN PO DYSPEPSIA; Start 02/28/18 at 13:15 Magnesium Hydroxide (Milk Of Magnesia) 2,400 mg PRN QHS PRN PO CONSTIPATION; Start 02/28/18 at 13:15 Calcium Carbonate/ Glycine (Oscal) 500 mg DAILY PO Last administered on at 08:09; Start 03/01/18 at 09:00 Clopidogrel Bisulfate (Plavix) 75 mg DAILY PO Last administered on 03/11/18at 08 :09; Start 03/01/18 at 09:00 Lisinopril (Prinivil) 5 mg DAILY PO Last administered on 03/11/18at 08:08; Start 03/01/18 at 09:00 Aspirin (Children'S Aspirin) 81 mg DAILYWBKFT PO Last administered on at 08:07; Start 03/01/18 at 08:00 Atorvastatin Calcium (Lipitor) 40 mg DAILY PO Last administered on 03/04/18at 08: 25; Start 03/01/18 at 09:00; Stop 03/04/18 at 13:36; Status DC Glucosamine/ Chondroitin (Glucosamine-Chondroitin 500/400mg) 1 cap DAILY PO Last administered on 03/11/18at 08:08; Start 03/01/18 at 09:00 Metoprolol Succinate (Toprol Xl) 50 mg DAILY PO Last administered on 03/11/18at 08:09; Start 03/01/18 at 09:00 Fish Oil (Fish Oil) 1,000 mg DAILY PO Last administered on 03/11/18at 08:07; Start 03/01/18 at 09:00 Multivitamins/ Minerals (I-Andre) 1 tab DAILY PO Last administered on 03/11/18at 08:08; Start 03/01/18 at 09:00 Sertraline HCl (Zoloft) 25 mg DAILY PO Last administered on 03/02/18at 08:45; Start 03/01/18 at 09:00; Stop 03/03/18 at 08:00; Status DC Sertraline HCl (Zoloft) 50 mg DAILY PO Last administered on 03/09/18at 09:33; Start 03/03/18 at 09:00; Stop 03/09/18 at 10:49; Status DC Quetiapine Fumarate (SEROquel) 12.5 mg BID@0900,1300 PO Last administered on at 13:00; Start 03/02/18 at 09:00 Non-Formulary Medication 1 ea DAILY PO Last administered on 03/11/18at 08:07; Start 03/05/18 at 09:00 Sertraline HCl (Zoloft) 75 mg DAILY PO Last administered on 03/11/18at 08:09; Start 03/10/18 at 09:00; Stop 03/12/18 at 09:30 Sertraline HCl (Zoloft) 100 mg DAILY PO ; Start 03/13/18 at 09:00 Active Scripts Active Reported Lisinopril 5 Mg Tablet 5 Mg PO DAILY [id number] (Calcium Carbonate) 500 Mg Tablet 500 Mg PO DAILY Glucosamine Chondroitin [place] (Gluc Emanuel Dipo Ch/Bg Emanuel/C/Sushant) 1 Each Tablet 1 Each PO DAILY Multivitamins (Multivitamin) 1 Each Tablet 1 Each PO [place] 3 Fish Oil Softgel ([place]-3 Fatty Acids/Fish Oil) 1 Each Capsule. 1 Each PO DAILY Aspirin 81 Mg Tab.chew 81 Mg PO DAILY Lipitor (Atorvastatin Calcium) 40 Mg Tablet 40 Mg PO DAILY Plavix (Clopidogrel Bisulfate) 75 Mg Tablet 75 Mg PO DAILY Metoprolol Succinate ( Xl ) (Metoprolol Succinate) 50 Mg Tab.er.24h 50 Mg PO DAILY I have reviewed the current psychotropics carefully including drug interactions. Risk benefit ratio favors no change other than as noted in my dictated progress note. Diagnosis: Problems: (1) Anxiety disorder (2) Impulse control disorder (3) Mild cognitive impairment (4) Major depressive disorder, recurrent episode DAVY CISNEROS MD Mar 11, 2018 22:31
[2018-03-12 06:12] VITALS: BP 136/66
[2018-03-12] MEDS: ASPIRIN 81 MG TAB.CHEW PO SCH (08:11)
[2018-03-12] MEDS: MULTIVITAMIN I-VITE TABLET. PO SCH (08:11)
[2018-03-12] MEDS: LISINOPRIL 5 MG TABLET. PO SCH (08:11)
[2018-03-12] MEDS: GLUCOSAMINE/CHOND 500/400MG CAPSULE PO SCH (08:11)
[2018-03-12] MEDS: CLOPIDOGREL BISULFATE 75 MG TABLET PO SCH (08:12)
[2018-03-12] MEDS: OMEGA-3 FATTY ACIDS/FISH OIL 1,000 MG CAPSULE. PO SCH (08:13)
[2018-03-12] MEDS: SERTRALINE 50 MG TABLET. PO SCH (08:14)
[2018-03-12] MEDS: METOPROLOL SUCC 24HR ER 50 MG TAB.ER.24H. PO SCH (08:14)
[2018-03-12] MEDS: CALCIUM CARBONATE 500 MG TABLET PO SCH (08:14)
[2018-03-12] MEDS: QUEtiapine 25 MG TABLET. PO SCH ×2 (08:15→13:38)
--- NOTE | 2018-03-12 08:35 | NUR ---
Nursing Note: Pt became agitated about a comb that staff was unable to locate. Pt began to slap his hands on his thighs and on his bed as he yelled at staff demanding that his comb be found immediately. Pt was stomping around his room saying his comb was stolen and when attempts where made to give pt a hospital comb until his personal comb could be found, pt became even more agitated and it was necessary to escort pt to hallway. PRN given. Will continue to monitor.
[2018-03-12] MEDS: ROSUVASTATIN 20 MG PO SCH (09:08)
[2018-03-12 15:48] VITALS: BP 106/51
--- NOTE | 2018-03-12 17:00 | NUR ---
Behavior Intervention Response and Plan: BIRP Note: Behavior: Assumed Care of patient, patient located in Patient Room at shift change. Patient exhibited the following behavior Agitated, Disorganized, Irritable. Brief assessment on rounds of vital signs, medication needs, lab studies, and pain. Treatment plan problems impulse control D/O and fall risk. Intervention: Patient assessed and the following interventions initiated safety checks 15 Minute Checks Head to toe Assessment , Cognitive Assessment , Medications. Response: After interactions and interventions patient responded in the following manner, Compliant , Calm ,Disorganized. Continue to assess behaviors and condition will continue to monitor throughout the shift as needed. Patient educated on ADL's, and hand hygiene. 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 Continue to assess patient for changes in above assessment. Monitor for medication needs, pain, and safety concerns. Hourly rounding performed to ensure safe environment.
--- NOTE | 2018-03-12 21:01 | PDOC ---
Exam Note: Harinder Note: Please also refer to the separate dictated note~for this date of service dictated separately.~Patient seen individually. Discussed the patient with Nursing staff reviewed the chart.~Reviewed interim history and current functioning. Reviewed vital signs,~Labs/ Radiology~and current medications noted below. Continue current treatment with the changes noted in the dictated addendum note Assessment: Vital Signs: Vital Signs Date Time Temp Pulse Resp B/P (MAP) Pulse Ox O2 Delivery O2 Flow Rate FiO2 03/12/18 15:48 97.9 67 18 106/51 (69) 97 03/11/18 16:12 Room Air I&O Intake and Output 03/12/18 07:01 Intake Total 1200 ml Balance 1200 ml Intake Oral 1200 ml Current Medications: Meds: Current Medications Olanzapine (ZyPREXA ZYDIS) 1.25 mg PRN Q2HR PRN PO PSYCHOSIS Last administered on 03/12/18at 08:26; Start 02/28/18 at 12:00 Acetaminophen (Tylenol) 650 mg PRN Q6HRS PRN PO PAIN / TEMP; Start 02/28/18 at 13:15 Multi-Ingredient Ointment (Analgesic [place]) 1 sophia PRN QID PRN TP MUSCLE PAIN; Start 02/28/18 at 13:15 Al Hydroxide/Mg Hydroxide (Mylanta Plus Xs) 15 ml PRN AFTMEALHC PRN PO DYSPEPSIA; Start 02/28/18 at 13:15 Magnesium Hydroxide (Milk Of Magnesia) 2,400 mg PRN QHS PRN PO CONSTIPATION; Start 02/28/18 at 13:15 Calcium Carbonate/ Glycine (Oscal) 500 mg DAILY PO Last administered on at 08:14; Start 03/01/18 at 09:00 Clopidogrel Bisulfate (Plavix) 75 mg DAILY PO Last administered on 03/12/18at 08 :12; Start 03/01/18 at 09:00 Lisinopril (Prinivil) 5 mg DAILY PO Last administered on 03/12/18at 08:11; Start 03/01/18 at 09:00 Aspirin (Children'S Aspirin) 81 mg DAILYWBKFT PO Last administered on at 08:11; Start 03/01/18 at 08:00 Atorvastatin Calcium (Lipitor) 40 mg DAILY PO Last administered on 03/04/18at 08: 25; Start 03/01/18 at 09:00; Stop 03/04/18 at 13:36; Status DC Glucosamine/ Chondroitin (Glucosamine-Chondroitin 500/400mg) 1 cap DAILY PO Last administered on 03/12/18at 08:11; Start 03/01/18 at 09:00 Metoprolol Succinate (Toprol Xl) 50 mg DAILY PO Last administered on 03/12/18at 08:14; Start 03/01/18 at 09:00 Fish Oil (Fish Oil) 1,000 mg DAILY PO Last administered on 03/12/18at 08:13; Start 03/01/18 at 09:00 Multivitamins/ Minerals (I-Andre) 1 tab DAILY PO Last administered on 03/12/18at 08:11; Start 03/01/18 at 09:00 Sertraline HCl (Zoloft) 25 mg DAILY PO Last administered on 03/02/18at 08:45; Start 03/01/18 at 09:00; Stop 03/03/18 at 08:00; Status DC Sertraline HCl (Zoloft) 50 mg DAILY PO Last administered on 03/09/18at 09:33; Start 03/03/18 at 09:00; Stop 03/09/18 at 10:49; Status DC Quetiapine Fumarate (SEROquel) 12.5 mg BID@0900,1300 PO Last administered on at 13:38; Start 03/02/18 at 09:00 Non-Formulary Medication 1 ea DAILY PO Last administered on 03/12/18at 09:08; Start 03/05/18 at 09:00 Sertraline HCl (Zoloft) 75 mg DAILY PO Last administered on 03/12/18at 08:14; Start 03/10/18 at 09:00; Stop 03/12/18 at 09:30; Status DC Sertraline HCl (Zoloft) 100 mg DAILY PO ; Start 03/13/18 at 09:00 Active Scripts Active Reported Lisinopril 5 Mg Tablet 5 Mg PO DAILY [id number] (Calcium Carbonate) 500 Mg Tablet 500 Mg PO DAILY Glucosamine Chondroitin Caplet (Gluc Emanuel Dipo Ch/Bg Emanuel/C/Sushant) 1 Each Tablet 1 Each PO DAILY Multivitamins (Multivitamin) 1 Each Tablet 1 Each PO [place] 3 Fish Oil Softgel ([place]-3 Fatty Acids/Fish Oil) 1 Each Capsule.dr 1 Each PO DAILY Aspirin 81 Mg Tab.chew 81 Mg PO DAILY Lipitor (Atorvastatin Calcium) 40 Mg Tablet 40 Mg PO DAILY Plavix (Clopidogrel Bisulfate) 75 Mg Tablet 75 Mg PO DAILY Metoprolol Succinate ( Xl ) (Metoprolol Succinate) 50 Mg Tab.er.24h 50 Mg PO DAILY I have reviewed the current psychotropics carefully including drug interactions. Risk benefit ratio favors no change other than as noted in my dictated progress note. Diagnosis: Problems: (1) Anxiety disorder (2) Impulse control disorder (3) Mild cognitive impairment (4) Major depressive disorder, recurrent episode DAVY CISNEROS MD Mar 12, 2018 21:01
--- NOTE | 2018-03-12 22:21 | NUR ---
Behavior Intervention Response and Plan: BIRP Note: Behavior: Assumed Care of patient, patient located in Patient Room at shift change. Patient exhibited the following behavior Calm, Withdrawn, Cooperative. Brief assessment on rounds of vital signs, medication needs, lab studies, and pain. Treatment plan problems 1-2. Intervention: Patient assessed and the following interventions initiated safety checks 15 Minute Checks Cognitive Assessment , Head to toe Assessment , Medications. Response: After interactions and interventions patient responded in the following manner, Withdrawn , Non Compliant ,Compliant. Continue to assess behaviors and condition will continue to monitor throughout the shift as needed. Patient educated on ADL's, and hand hygiene. 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 Continue to assess patient for changes in above assessment. Monitor for medication needs, pain, and safety concerns. Hourly rounding performed to ensure safe environment.
--- NOTE | 2018-03-13 02:33 | PN ---
DATE: 03/10/2018 PSYCHIATRIC PROGRESS NOTE This late entry 03/10/2018, covers elements not covered in my initial note. SUBJECTIVE: Met with the patient in the evening. The patient was somewhat anxious, grumpy in the morning, but knew he was at [facility], knew it was 2018, somewhat withdrawn, spends much time in his room. REVIEW OF SYSTEMS: No CV, , pulmonary, eye, ENT system symptoms on review. Reliability varies. MENTAL STATUS EXAM: Oriented to himself, situation. Speech has some latency, coherent. Abstraction is fair, computation impaired, language function intact, attention span short. Mood and affect somewhat withdrawn. LABORATORY DATA: Reviewed. IMPRESSION: Unchanged from initial note. PLAN: Continue psychotropics mentioned in my initial note. Increased Zoloft to 100 mg a day after he has been on 75 mg for 3 days. Continue rest unchanged. MAN Rafal CISNEROS MD DR: NOREEN/charly JOB#: [id number] / [id number]
[2018-03-13 06:23] VITALS: BP 128/57
[2018-03-13] MEDS: OMEGA-3 FATTY ACIDS/FISH OIL 1,000 MG CAPSULE. PO SCH (08:02)
[2018-03-13] MEDS: GLUCOSAMINE/CHOND 500/400MG CAPSULE PO SCH (08:02)
[2018-03-13] MEDS: QUEtiapine 25 MG TABLET. PO SCH ×2 (08:02→13:24)
[2018-03-13] MEDS: MULTIVITAMIN I-VITE TABLET. PO SCH (08:02)
[2018-03-13] MEDS: ASPIRIN 81 MG TAB.CHEW PO SCH (08:04)
[2018-03-13] MEDS: CLOPIDOGREL BISULFATE 75 MG TABLET PO SCH (08:04)
[2018-03-13] MEDS: CALCIUM CARBONATE 500 MG TABLET PO SCH (08:04)
[2018-03-13] MEDS: ROSUVASTATIN 20 MG PO SCH (08:05)
[2018-03-13 08:29] LABS: BASO % 1 % (0-3); EOS # 0.1 x10^3/uL (0.0-0.7); EOS % 1 % (0-3); HEMOGLOBIN 14.2 g/dL (13.0-17.5); LYMPH # 0.9 x10^3/uL (1.0-4.8); LYMPH % 12 % (24-48); MEAN CORPUSCULAR HEMOGLOBIN 32 pg (25-35); MEAN CORPUSCULAR HGB CONC 34 g/dL (31-37); MEAN CORPUSCULAR VOLUME 94 fL (79-100); MONO # 0.7 x10^3/uL (0.0-1.1); MONO % 9 % (0-9); NEUT # 5.7 x10^3uL (1.8-7.7); NEUT % 77 % (31-73); PLATELET COUNT 211 x10^3/uL (140-400); RED BLOOD COUNT 4.48 x10^6/uL (4.30-5.70); RED CELL DISTRIBUTION WIDTH 13.4 % (11.5-14.5); WHITE BLOOD COUNT 7.4 x10^3/uL (4.0-11.0)
[2018-03-13] MEDS: LISINOPRIL 5 MG TABLET. PO SCH (09:00)
[2018-03-13] MEDS: METOPROLOL SUCC 24HR ER 50 MG TAB.ER.24H. PO SCH (09:00)
--- NOTE | 2018-03-13 09:07 | NUR ---
Nursing Note: Pt pleasant and cooperative at breakfast, took medication whole, compliant w/ assessment. However, when pt returned to his room, pt became upset because he thought that all of his belongings had been stolen. Pt was told that his things were in his closet and would be shown to him as soon as this nurse had a moment. Overheard pt slapping his bed in anger and as this nurse was in the hallway given another pt medication reminded pt that I would be with him in a moment. Pt yelled that all his things were gone and that no one cares. Opened pt's closet and showed him his belongings and explained why it was necessary to keep them secured. Pt remained upset, pacing his room saying that he is stuck in his room w/o access to his thing. Reminded pt that staff will give him access whenever he needs anything from his closet. Encouraged pt to spend more time out of his room participating in groups. Will continue to monitor.
[2018-03-13 09:41] LABS: CALCIUM 8.5 mg/dL (8.5-10.1); CREATININE 1.1 mg/dL (0.7-1.3); GFR 63.8; POTASSIUM 4.2 mmol/L (3.5-5.1); TOTAL BILIRUBIN 0.4 mg/dL (0.2-1.0); TOTAL PROTEIN 6.1 g/dL (6.4-8.2)
[2018-03-13] MEDS: SERTRALINE 100 MG TABLET. PO SCH (10:03)
--- NOTE | 2018-03-13 10:09 | NUR ---
Nursing Note: Patient's BP low this am, BP meds held- instructed pt to increase fluid intake and provided him with full hospital cup of water w/o ice as requested, will recheck and evaluate.
[2018-03-13 11:41] VITALS: BP 114/68
--- NOTE | 2018-03-13 13:46 | PN ---
DATE: 03/12/2018 PSYCHIATRIC PROGRESS NOTE This is a late entry 03/12/2018, covers elements not covered in my initial note. SUBJECTIVE: I met with the patient in the evening in his room. 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 at 8:00 a.m. He was looking for his comb, but was not happy when the nurses answered him and then had a "temper tantrum" per nursing staff. Other than that, rest of the day, he has done well. REVIEW OF SYSTEMS: No CV, , pulmonary, eye, ENT system symptoms on review. Reliability poor. MENTAL STATUS EXAM: Oriented to himself and situation. Speech moderate latency, often responses monosyllabic. Abstraction fair, computation impaired, language function intact. Short term memory is impaired. No active suicidal or homicidal ideation. 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 PLAN: Continue psychotropics from my initial note. MAN Rafal CISNEROS MD DR: NOREEN/charly JOB#: [id number] / [id number]
--- NOTE | 2018-03-13 13:53 | PN ---
DATE: 03/11/2018 This is a late entry 03/11/2018, covers the elements not covered in my initial note. SUBJECTIVE: I met with the patient in the evening in his room. Overall, the patient is compliant with medications. Gets anxious. Short term memory is impaired, he minimizes this. REVIEW OF SYSTEMS: No CV, , pulmonary, eye, ENT system symptoms on review. Reliability varies. MENTAL STATUS EXAM: Oriented to himself and situation. Speech coherent, has some latency. Abstraction fair, computation impaired, language function intact, attention span short. Mood and affect somewhat withdrawn. LABORATORY DATA: Reviewed. IMPRESSION: Major neurocognitive disorder, Alzheimer, vascular with delusion, depression; major depressive disorder with rule out psychotic features; anxiety disorder, unspecified. PLAN: Continue psychotropics mentioned in my initial note, Zoloft, Seroquel along with Zyprexa p.r.n. Majority of the patient's dementia symptoms is vascular and this would be little benefit from using a cholinesterase inhibitors or Namenda. MAN Rafal CISNEROS MD DR: NOREEN/charly JOB#: [id number] / [id number]
--- NOTE | 2018-03-13 14:39 | NUR ---
Behavior Intervention Response and Plan: BIRP Note: Behavior: Assumed Care of patient, patient located in Dining Room at shift change. Patient exhibited the following behavior Alert X's 4, Compliant with medications, Irritable. Brief assessment on rounds of vital signs, medication needs, lab studies, and pain. Treatment plan problems impulse control d/o and fall risk. Intervention: Patient assessed and the following interventions initiated safety checks 15 Minute Checks Head to toe Assessment , Cognitive Assessment , Medications. Response: After interactions and interventions patient responded in the following manner, Calm , Compliant ,Withdrawn. Continue to assess behaviors and condition will continue to monitor throughout the shift as needed. Patient educated on ADL's, and hand hygiene. 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 Continue to assess patient for changes in above assessment. Monitor for medication needs, pain, and safety concerns. Hourly rounding performed to ensure safe environment.
[2018-03-13 16:17] VITALS: BP 109/62
--- NOTE | 2018-03-13 21:02 | PDOC ---
Exam Note: Harinder Note: Please also refer to the separate dictated note~for this date of service dictated separately.~Patient seen individually. Discussed the patient with Nursing staff reviewed the chart.~Reviewed interim history and current functioning. Reviewed vital signs,~Labs/ Radiology~and current medications noted below. Continue current treatment with the changes noted in the dictated addendum note Assessment: Vital Signs: Vital Signs Date Time Temp Pulse Resp B/P (MAP) Pulse Ox O2 Delivery O2 Flow Rate FiO2 03/13/18 16:17 98.2 61 20 109/62 (78) 98 Room Air I&O Intake and Output 03/13/18 07:01 Intake Total 720 ml Balance 720 ml Intake Oral 720 ml Labs: Laboratory Tests Test 03/13/18 07:40 White Blood Count 7.4 x10^3/uL (4.0-11.0) Red Blood Count 4.48 x10^6/uL (4.30-5.70) Hemoglobin 14.2 g/dL (13.0-17.5) Hematocrit 42.0 % (39.0-53.0) Mean Corpuscular Volume 94 fL (79-100) Mean Corpuscular Hemoglobin 32 pg (25-35) Mean Corpuscular Hemoglobin Concent 34 g/dL (31-37) Red Cell Distribution Width 13.4 % (11.5-14.5) Platelet Count 211 x10^3/uL (140-400) Neutrophils (%) (Auto) 77 % (31-73) H Lymphocytes (%) (Auto) 12 % (24-48) L Monocytes (%) (Auto) 9 % (0-9) Eosinophils (%) (Auto) 1 % (0-3) Basophils (%) (Auto) 1 % (0-3) Neutrophils # (Auto) 5.7 x10^3uL (1.8-7.7) Lymphocytes # (Auto) 0.9 x10^3/uL (1.0-4.8) L Monocytes # (Auto) 0.7 x10^3/uL (0.0-1.1) Eosinophils # (Auto) 0.1 x10^3/uL (0.0-0.7) Basophils # (Auto) 0.0 x10^3/uL (0.0-0.2) Sodium Level 143 mmol/L (136-145) Potassium Level 4.2 mmol/L (3.5-5.1) Chloride Level 107 mmol/L (98-107) Carbon Dioxide Level 30 mmol/L (21-32) Anion Gap 6 (6-14) Blood Urea Nitrogen 16 mg/dL (8-26) Creatinine 1.1 mg/dL (0.7-1.3) Estimated GFR (Cockcroft-Gault) 63.8 BUN/Creatinine Ratio 15 (6-20) Glucose Level 98 mg/dL (70-99) Calcium Level 8.5 mg/dL (8.5-10.1) Total Bilirubin 0.4 mg/dL (0.2-1.0) Aspartate Amino Transferase (AST) 18 U/L (15-37) Alanine Aminotransferase (ALT) 23 U/L (16-63) Alkaline Phosphatase 81 U/L (46-116) Total Protein 6.1 g/dL (6.4-8.2) L Albumin 3.0 g/dL (3.4-5.0) L Albumin/Globulin Ratio 1.0 (1.0-1.7) Current Medications: Meds: Current Medications Olanzapine (ZyPREXA ZYDIS) 1.25 mg PRN Q2HR PRN PO PSYCHOSIS Last administered on 03/12/18at 08:26; Start 02/28/18 at 12:00 Acetaminophen (Tylenol) 650 mg PRN Q6HRS PRN PO PAIN / TEMP; Start 02/28/18 at 13:15 Multi-Ingredient Ointment (Analgesic [place]) 1 sophia PRN QID PRN TP MUSCLE PAIN; Start 02/28/18 at 13:15 Al Hydroxide/Mg Hydroxide (Mylanta Plus Xs) 15 ml PRN AFTMEALHC PRN PO DYSPEPSIA; Start 02/28/18 at 13:15 Magnesium Hydroxide (Milk Of Magnesia) 2,400 mg PRN QHS PRN PO CONSTIPATION; Start 02/28/18 at 13:15 Calcium Carbonate/ Glycine (Oscal) 500 mg DAILY PO Last administered on at 08:04; Start 03/01/18 at 09:00 Clopidogrel Bisulfate (Plavix) 75 mg DAILY PO Last administered on 03/13/18at 08 :04; Start 03/01/18 at 09:00 Lisinopril (Prinivil) 5 mg DAILY PO Last administered on 03/12/18at 08:11; Start 03/01/18 at 09:00 Aspirin (Children'S Aspirin) 81 mg DAILYWBKFT PO Last administered on at 08:04; Start 03/01/18 at 08:00 Atorvastatin Calcium (Lipitor) 40 mg DAILY PO Last administered on 03/04/18at 08: 25; Start 03/01/18 at 09:00; Stop 03/04/18 at 13:36; Status DC Glucosamine/ Chondroitin (Glucosamine-Chondroitin 500/400mg) 1 cap DAILY PO Last administered on 03/13/18at 08:02; Start 03/01/18 at 09:00 Metoprolol Succinate (Toprol Xl) 50 mg DAILY PO Last administered on 03/12/18at 08:14; Start 03/01/18 at 09:00 Fish Oil (Fish Oil) 1,000 mg DAILY PO Last administered on 03/13/18at 08:02; Start 03/01/18 at 09:00 Multivitamins/ Minerals (I-Andre) 1 tab DAILY PO Last administered on 03/13/18at 08:02; Start 03/01/18 at 09:00 Sertraline HCl (Zoloft) 25 mg DAILY PO Last administered on 03/02/18at 08:45; Start 03/01/18 at 09:00; Stop 03/03/18 at 08:00; Status DC Sertraline HCl (Zoloft) 50 mg DAILY PO Last administered on 03/09/18at 09:33; Start 03/03/18 at 09:00; Stop 03/09/18 at 10:49; Status DC Quetiapine Fumarate (SEROquel) 12.5 mg BID@0900,1300 PO Last administered on at 13:24; Start 03/02/18 at 09:00; Stop 03/13/18 at 18:24; Status DC Non-Formulary Medication 1 ea DAILY PO Last administered on 03/13/18at 08:05; Start 03/05/18 at 09:00 Sertraline HCl (Zoloft) 75 mg DAILY PO Last administered on 03/12/18at 08:14; Start 03/10/18 at 09:00; Stop 03/12/18 at 09:30; Status DC Sertraline HCl (Zoloft) 100 mg DAILY PO Last administered on 03/13/18at 10:03; Start 03/13/18 at 09:00 Quetiapine Fumarate (SEROquel) 12.5 mg 1300 PO ; Start 03/14/18 at 13:00 Quetiapine Fumarate (SEROquel) 25 mg DAILY PO ; Start 03/14/18 at 09:00 Active Scripts Active Reported Lisinopril 5 Mg Tablet 5 Mg PO DAILY [id number] (Calcium Carbonate) 500 Mg Tablet 500 Mg PO DAILY Glucosamine Chondroitin [place] (Gluc Emanuel Dipo Ch/Bg Emanuel/C/Sushant) 1 Each Tablet 1 Each PO DAILY Multivitamins (Multivitamin) 1 Each Tablet 1 Each PO [place] 3 Fish Oil Softgel ([place]-3 Fatty Acids/Fish Oil) 1 Each Capsule.dr 1 Each PO DAILY Aspirin 81 Mg Tab.chew 81 Mg PO DAILY Lipitor (Atorvastatin Calcium) 40 Mg Tablet 40 Mg PO DAILY Plavix (Clopidogrel Bisulfate) 75 Mg Tablet 75 Mg PO DAILY Metoprolol Succinate ( Xl ) (Metoprolol Succinate) 50 Mg Tab.er.24h 50 Mg PO DAILY I have reviewed the current psychotropics carefully including drug interactions. Risk benefit ratio favors no change other than as noted in my dictated progress note. Diagnosis: Problems: (1) Anxiety disorder (2) Impulse control disorder (3) Mild cognitive impairment (4) Major depressive disorder, recurrent episode DAVY CISNEROS MD Mar 13, 2018 21:02
--- NOTE | 2018-03-14 00:10 | NUR ---
Behavior Intervention Response and Plan: BIRP Note: Behavior: Assumed Care of patient, patient located in Patient Room at shift change. Patient exhibited the following behavior Calm, Disorganized, Defensive. Brief assessment on rounds of vital signs, medication needs, lab studies, and pain. Treatment plan problems . Intervention: Patient assessed and the following interventions initiated safety checks 15 Minute Checks Head to toe Assessment , Cognitive Assessment , Medications. Response: After interactions and interventions patient responded in the following manner, Irritable , Withdrawn ,Exit Seeking. Continue to assess behaviors and condition will continue to monitor throughout the shift as needed. Patient educated on ADL's, and hand hygiene. Plan: Continue to monitor Master Treatment Plan for patient's progress toward short term goals of Improved Mood, Decreased Agitation, care home goals to return to previous living setting vs placement. Continue to assess patient for changes in above assessment. Monitor for medication needs, pain, and safety concerns. Hourly rounding performed to ensure safe environment.
[2018-03-14 06:08] VITALS: BP 141/71
[2018-03-14] MEDS: METOPROLOL SUCC 24HR ER 50 MG TAB.ER.24H. PO SCH (08:08)
[2018-03-14] MEDS: MULTIVITAMIN I-VITE TABLET. PO SCH (08:08)
[2018-03-14] MEDS: LISINOPRIL 5 MG TABLET. PO SCH (08:09)
[2018-03-14] MEDS: CLOPIDOGREL BISULFATE 75 MG TABLET PO SCH (08:09)
[2018-03-14] MEDS: GLUCOSAMINE/CHOND 500/400MG CAPSULE PO SCH (08:09)
[2018-03-14] MEDS: OMEGA-3 FATTY ACIDS/FISH OIL 1,000 MG CAPSULE. PO SCH (08:09)
[2018-03-14] MEDS: SERTRALINE 100 MG TABLET. PO SCH (08:09)
[2018-03-14] MEDS: CALCIUM CARBONATE 500 MG TABLET PO SCH (08:09)
[2018-03-14] MEDS: ROSUVASTATIN 20 MG PO SCH (08:11)
[2018-03-14] MEDS: QUEtiapine 25 MG TABLET. PO SCH ×2 (08:11→13:42)
--- NOTE | 2018-03-14 09:54 | NUR ---
Behavior Intervention Response and Plan: BIRP Note: Behavior: Assumed Care of patient, patient located in Dining Room at shift change. Patient exhibited the following behavior Calm, Cooperative, Delusions. Brief assessment on rounds of vital signs, medication needs, lab studies, and pain. Treatment plan problems 1-2. Intervention: Patient assessed and the following interventions initiated safety checks 15 Minute Checks Cognitive Assessment , Head to toe Assessment , Medications. Response: After interactions and interventions patient responded in the following manner, Withdrawn , Cooperative ,Delusions. Continue to assess behaviors and condition will continue to monitor throughout the shift as needed. Patient educated on ADL's, and hand hygiene. 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 Continue to assess patient for changes in above assessment. Monitor for medication needs, pain, and safety concerns. Hourly rounding performed to ensure safe environment.
--- NOTE | 2018-03-14 15:42 | NUR ---
Pt calm, compliant with medications. Withdrawn to room most of the day.
[2018-03-14 15:52] VITALS: BP 107/60
--- NOTE | 2018-03-14 21:02 | PDOC ---
Exam Note: Harinder Note: Please also refer to the separate dictated note~for this date of service dictated separately.~Patient seen individually. Discussed the patient with Nursing staff reviewed the chart.~Reviewed interim history and current functioning. Reviewed vital signs,~Labs/ Radiology~and current medications noted below. Continue current treatment with the changes noted in the dictated addendum note Assessment: Vital Signs: Vital Signs Date Time Temp Pulse Resp B/P (MAP) Pulse Ox O2 Delivery O2 Flow Rate FiO2 03/14/18 15:52 98.2 50 19 107/60 (76) 97 03/13/18 16:17 Room Air I&O Intake and Output 03/14/18 07:00 Intake Total 720 ml Balance 720 ml Intake Oral 720 ml Current Medications: Meds: Current Medications Olanzapine (ZyPREXA ZYDIS) 1.25 mg PRN Q2HR PRN PO PSYCHOSIS Last administered on 03/12/18at 08:26; Start 02/28/18 at 12:00 Acetaminophen (Tylenol) 650 mg PRN Q6HRS PRN PO PAIN / TEMP; Start 02/28/18 at 13:15 Multi-Ingredient Ointment (Analgesic [place]) 1 sophia PRN QID PRN TP MUSCLE PAIN; Start 02/28/18 at 13:15 Al Hydroxide/Mg Hydroxide (Mylanta Plus Xs) 15 ml PRN AFTMEALHC PRN PO DYSPEPSIA; Start 02/28/18 at 13:15 Magnesium Hydroxide (Milk Of Magnesia) 2,400 mg PRN QHS PRN PO CONSTIPATION; Start 02/28/18 at 13:15 Calcium Carbonate/ Glycine (Oscal) 500 mg DAILY PO Last administered on at 08:09; Start 03/01/18 at 09:00 Clopidogrel Bisulfate (Plavix) 75 mg DAILY PO Last administered on 03/14/18at 08 :09; Start 03/01/18 at 09:00 Lisinopril (Prinivil) 5 mg DAILY PO Last administered on 03/14/18at 08:09; Start 03/01/18 at 09:00 Aspirin (Children'S Aspirin) 81 mg DAILYWBKFT PO Last administered on at 08:04; Start 03/01/18 at 08:00 Atorvastatin Calcium (Lipitor) 40 mg DAILY PO Last administered on 03/04/18at 08: 25; Start 03/01/18 at 09:00; Stop 03/04/18 at 13:36; Status DC Glucosamine/ Chondroitin (Glucosamine-Chondroitin 500/400mg) 1 cap DAILY PO Last administered on 03/14/18at 08:09; Start 03/01/18 at 09:00 Metoprolol Succinate (Toprol Xl) 50 mg DAILY PO Last administered on 03/14/18 08:08; Start 03/01/18 at 09:00 Fish Oil (Fish Oil) 1,000 mg DAILY PO Last administered on 03/14/18at 08:09; Start 03/01/18 at 09:00 Multivitamins/ Minerals (I-Andre) 1 tab DAILY PO Last administered on 03/14/18at 08:08; Start 03/01/18 at 09:00 Sertraline HCl (Zoloft) 25 mg DAILY PO Last administered on 03/02/18at 08:45; Start 03/01/18 at 09:00; Stop 03/03/18 at 08:00; Status DC Sertraline HCl (Zoloft) 50 mg DAILY PO Last administered on 03/09/18at 09:33; Start 03/03/18 at 09:00; Stop 03/09/18 at 10:49; Status DC Quetiapine Fumarate (SEROquel) 12.5 mg BID@0900,1300 PO Last administered on at 13:24; Start 03/02/18 at 09:00; Stop 03/13/18 at 18:24; Status DC Non-Formulary Medication 1 ea DAILY PO Last administered on 03/14/18at 08:11; Start 03/05/18 at 09:00 Sertraline HCl (Zoloft) 75 mg DAILY PO Last administered on 03/12/18at 08:14; Start 03/10/18 at 09:00; Stop 03/12/18 at 09:30; Status DC Sertraline HCl (Zoloft) 100 mg DAILY PO Last administered on 03/14/18at 08:09; Start 03/13/18 at 09:00 Quetiapine Fumarate (SEROquel) 12.5 mg 1300 PO Last administered on 03/14/18at 13:42; Start 03/14/18 at 13:00 Quetiapine Fumarate (SEROquel) 25 mg DAILY PO Last administered on 03/14/18at 08 :11; Start 03/14/18 at 09:00 Active Scripts Active Reported Lisinopril 5 Mg Tablet 5 Mg PO DAILY [id number] (Calcium Carbonate) 500 Mg Tablet 500 Mg PO DAILY Glucosamine Chondroitin Caplet (Gluc Emanuel Dipo Ch/Bg Emanuel/C/Sushant) 1 Each Tablet 1 Each PO DAILY Multivitamins (Multivitamin) 1 Each Tablet 1 Each PO [place] 3 Fish Oil Softgel ([place]-3 Fatty Acids/Fish Oil) 1 Each Capsule.dr 1 Each PO DAILY Aspirin 81 Mg Tab.chew 81 Mg PO DAILY Lipitor (Atorvastatin Calcium) 40 Mg Tablet 40 Mg PO DAILY Plavix (Clopidogrel Bisulfate) 75 Mg Tablet 75 Mg PO DAILY Metoprolol Succinate ( Xl ) (Metoprolol Succinate) 50 Mg Tab.er.24h 50 Mg PO DAILY I have reviewed the current psychotropics carefully including drug interactions. Risk benefit ratio favors no change other than as noted in my dictated progress note. Diagnosis: Problems: (1) Anxiety disorder (2) Impulse control disorder (3) Mild cognitive impairment (4) Major depressive disorder, recurrent episode DAVY CISNEROS MD Mar 14, 2018 21:02
--- NOTE | 2018-03-14 21:04 | PN ---
DATE: 03/13/2018 PSYCHIATRIC PROGRESS NOTE This is a late entry 03/13/2018 covers elements not covered in my initial note. SUBJECTIVE: I met with the patient in the evening in his room. The patient is quite pleasant, in the morning, then agitated, believed people were stealing his things and belongings. He was unable to comprehend that nursing staff had locked it in his closet to prevent other demented patients walking away with it. He refused to let the nursing staff assist him with toileting, refused to let them lock his closet, quite disorganized. REVIEW OF SYSTEMS: No CV, , pulmonary, eye, ENT system symptoms on review. MENTAL STATUS EXAM: Oriented to himself, situation at times. Speech has some latency, coherent. Abstraction fair, computation impaired, language function intact, attention span short. Mood and affect remain somewhat anxious, labile. LABORATORY DATA: Reviewed. IMPRESSION: Unchanged from initial note. PLAN: The patient is currently on Seroquel 12.5 mg b.i.d. We will increase to 25 in the morning, 12.5 in the afternoon. Continue rest unchanged including Zoloft along with Zyprexa p.r.n. DAVY CISNEROS MD DR: NOREEN/charly JOB#: [id number] / [id number]
--- NOTE | 2018-03-15 01:19 | NUR ---
Behavior Intervention Response and Plan: BIRP Note: Behavior: Assumed Care of patient, patient located in Patient Room at shift change. Patient exhibited the following behavior Calm, Withdrawn, Drowsy. Brief assessment on rounds of vital signs, medication needs, lab studies, and pain. Treatment plan problems . Intervention: Patient assessed and the following interventions initiated safety checks 15 Minute Checks Cognitive Assessment , Medications , Oral Hydration. Response: After interactions and interventions patient responded in the following manner, Calm , Withdrawn ,Drowsy. Continue to assess behaviors and condition will continue to monitor throughout the shift as needed. Patient educated on ADL's, and hand hygiene. Plan: Continue to monitor Master Treatment Plan for patient's progress toward short term goals of Decreased Agitation, Decreased Aggression, intermediate goals to return to previous living setting vs placement. Continue to assess patient for changes in above assessment. Monitor for medication needs, pain, and safety concerns. Hourly rounding performed to ensure safe environment.
[2018-03-15 06:03] VITALS: BP 123/62
[2018-03-15] MEDS: QUEtiapine 25 MG TABLET. PO SCH ×2 (08:17→13:57)
[2018-03-15] MEDS: GLUCOSAMINE/CHOND 500/400MG CAPSULE PO SCH (08:17)
[2018-03-15] MEDS: ASPIRIN 81 MG TAB.CHEW PO SCH (08:17)
[2018-03-15] MEDS: OMEGA-3 FATTY ACIDS/FISH OIL 1,000 MG CAPSULE. PO SCH (08:18)
[2018-03-15] MEDS: SERTRALINE 100 MG TABLET. PO SCH (08:18)
[2018-03-15] MEDS: LISINOPRIL 5 MG TABLET. PO SCH (08:20)
[2018-03-15] MEDS: CLOPIDOGREL BISULFATE 75 MG TABLET PO SCH (08:21)
[2018-03-15] MEDS: CALCIUM CARBONATE 500 MG TABLET PO SCH (08:21)
[2018-03-15] MEDS: MULTIVITAMIN I-VITE TABLET. PO SCH (08:21)
[2018-03-15] MEDS: METOPROLOL SUCC 24HR ER 50 MG TAB.ER.24H. PO SCH (08:22)
[2018-03-15] MEDS: ROSUVASTATIN 20 MG PO SCH (08:23)
--- NOTE | 2018-03-15 08:34 | NUR ---
Nursing Note: Pt calm, compliant w/ medications/asses, asked questions about specific medications, reported no pain and that he slept well last night.
--- NOTE | 2018-03-15 13:51 | PN ---
DATE: 03/14/2018 The patient was seen on rounds the evening of 03/14/2018. Discussed with nursing staff and reviewed the chart. This note covers elements not covered in my initial note 03/14/2018. SUBJECTIVE: I met with the patient in his room in the evening. He is irritable in the morning, somewhat "grumpy" per nursing report, withdrawn, compliant with his medications, still appears somewhat depressed, anxious. REVIEW OF SYSTEMS: No CV, , pulmonary, eye, ENT system symptoms on review. MENTAL STATUS EXAM: Oriented to himself and situation. Speech with moderate latency, often responses monosyllabic. Abstraction fair, computation impaired, language function intact, attention span short. Mood and affect remains somewhat withdrawn, less so than before. LABORATORY DATA: Reviewed. IMPRESSION: Unchanged from initial note, major depressive disorder, recurrent: Major neurocognitive disorder, Alzheimer, vascular with depression, delusions. PLAN: Continue psychotropics from initial note. DAVY CISNEROS MD DR: NOREEN/charly JOB#: [id number] / [id number]
--- NOTE | 2018-03-15 15:00 | NUR ---
WEEKLY THERAPEUTIC RECREATION NOTE Date of Admission: 02/28/2018 Date of AT Assessment: 03/03/2018 Goal aimed: to increase socialization and leisure awareness Initial goal: Pt. will participate in at least two groups a day. Weekly progress towards goal: achieved Group participation level: moderate to full Behaviors observed: Inconsistant group participation, at times enjoys exercise groups but at other times has no interest in them, confused and needs reminders occasionally, generally pleasant and easy going Plan: no change to goal
--- NOTE | 2018-03-15 15:51 | NUR ---
Behavior Intervention Response and Plan: BIRP Note: Behavior: Assumed Care of patient, patient located in Dining Room at shift change. Patient exhibited the following behavior Calm, Cooperative, Compliant. Brief assessment on rounds of vital signs, medication needs, lab studies, and pain. Treatment plan problems fall risk. Intervention: Patient assessed and the following interventions initiated safety checks 15 Minute Checks Head to toe Assessment , Cognitive Assessment , Medications. Response: After interactions and interventions patient responded in the following manner, Calm , Compliant ,Compliant. Continue to assess behaviors and condition will continue to monitor throughout the shift as needed. Patient educated on ADL's, and hand hygiene. 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 Continue to assess patient for changes in above assessment. Monitor for medication needs, pain, and safety concerns. Hourly rounding performed to ensure safe environment.
[2018-03-15 17:09] VITALS: BP 92/51
--- NOTE | 2018-03-15 20:50 | PDOC ---
Exam Note: Harinder Note: Please also refer to the separate dictated note~for this date of service dictated separately.~Patient seen individually. Discussed the patient with Nursing staff reviewed the chart.~Reviewed interim history and current functioning. Reviewed vital signs,~Labs/ Radiology~and current medications noted below. Continue current treatment with the changes noted in the dictated addendum note Assessment: Vital Signs: Vital Signs Date Time Temp Pulse Resp B/P (MAP) Pulse Ox O2 Delivery O2 Flow Rate FiO2 03/15/18 17:09 97.9 50 19 92/51 (65) 100 03/13/18 16:17 Room Air I&O Intake and Output 03/15/18 07:00 Intake Total 1200 ml Balance 1200 ml Intake Oral 1200 ml # Voids 1 Current Medications: Meds: Current Medications Olanzapine (ZyPREXA ZYDIS) 1.25 mg PRN Q2HR PRN PO PSYCHOSIS Last administered on 03/12/18at 08:26; Start 02/28/18 at 12:00 Acetaminophen (Tylenol) 650 mg PRN Q6HRS PRN PO PAIN / TEMP; Start 02/28/18 at 13:15 Multi-Ingredient Ointment (Analgesic [place]) 1 sophia PRN QID PRN TP MUSCLE PAIN; Start 02/28/18 at 13:15 Al Hydroxide/Mg Hydroxide (Mylanta Plus Xs) 15 ml PRN AFTMEALHC PRN PO DYSPEPSIA; Start 02/28/18 at 13:15 Magnesium Hydroxide (Milk Of Magnesia) 2,400 mg PRN QHS PRN PO CONSTIPATION; Start 02/28/18 at 13:15 Calcium Carbonate/ Glycine (Oscal) 500 mg DAILY PO Last administered on at 08:21; Start 03/01/18 at 09:00 Clopidogrel Bisulfate (Plavix) 75 mg DAILY PO Last administered on 03/15/18at 08 :21; Start 03/01/18 at 09:00 Lisinopril (Prinivil) 5 mg DAILY PO Last administered on 03/15/18at 08:20; Start 03/01/18 at 09:00 Aspirin (Children'S Aspirin) 81 mg DAILYWBKFT PO Last administered on at 08:17; Start 03/01/18 at 08:00 Atorvastatin Calcium (Lipitor) 40 mg DAILY PO Last administered on 03/04/18 08: 25; Start 03/01/18 at 09:00; Stop 03/04/18 at 13:36; Status DC Glucosamine/ Chondroitin (Glucosamine-Chondroitin 500/400mg) 1 cap DAILY PO Last administered on 03/15/18at 08:17; Start 03/01/18 at 09:00 Metoprolol Succinate (Toprol Xl) 50 mg DAILY PO Last administered on 03/15/18at 08:22; Start 03/01/18 at 09:00 Fish Oil (Fish Oil) 1,000 mg DAILY PO Last administered on 03/15/18at 08:18; Start 03/01/18 at 09:00 Multivitamins/ Minerals (I-Ander) 1 tab DAILY PO Last administered on 03/15/18 08:21; Start 03/01/18 at 09:00 Sertraline HCl (Zoloft) 25 mg DAILY PO Last administered on 03/02/18at 08:45; Start 03/01/18 at 09:00; Stop 03/03/18 at 08:00; Status DC Sertraline HCl (Zoloft) 50 mg DAILY PO Last administered on 03/09/18at 09:33; Start 03/03/18 at 09:00; Stop 03/09/18 at 10:49; Status DC Quetiapine Fumarate (SEROquel) 12.5 mg BID@0900,1300 PO Last administered on at 13:24; Start 03/02/18 at 09:00; Stop 03/13/18 at 18:24; Status DC Non-Formulary Medication 1 ea DAILY PO Last administered on 03/15/18at 08:23; Start 03/05/18 at 09:00 Sertraline HCl (Zoloft) 75 mg DAILY PO Last administered on 03/12/18at 08:14; Start 03/10/18 at 09:00; Stop 03/12/18 at 09:30; Status DC Sertraline HCl (Zoloft) 100 mg DAILY PO Last administered on 03/15/18at 08:18; Start 03/13/18 at 09:00 Quetiapine Fumarate (SEROquel) 12.5 mg 1300 PO Last administered on 03/15/18at 13:57; Start 03/14/18 at 13:00 Quetiapine Fumarate (SEROquel) 25 mg DAILY PO Last administered on 03/15/18at 08 :17; Start 03/14/18 at 09:00 Active Scripts Active Reported Lisinopril 5 Mg Tablet 5 Mg PO DAILY [id number] (Calcium Carbonate) 500 Mg Tablet 500 Mg PO DAILY Glucosamine Chondroitin Caplet (Gluc Emanuel Dipo Ch/Bg Emanuel/C/Sushant) 1 Each Tablet 1 Each PO DAILY Multivitamins (Multivitamin) 1 Each Tablet 1 Each PO [place] 3 Fish Oil Softgel ([place]-3 Fatty Acids/Fish Oil) 1 Each Capsule.dr 1 Each PO DAILY Aspirin 81 Mg Tab.chew 81 Mg PO DAILY Lipitor (Atorvastatin Calcium) 40 Mg Tablet 40 Mg PO DAILY Plavix (Clopidogrel Bisulfate) 75 Mg Tablet 75 Mg PO DAILY Metoprolol Succinate ( Xl ) (Metoprolol Succinate) 50 Mg Tab.er.24h 50 Mg PO DAILY I have reviewed the current psychotropics carefully including drug interactions. Risk benefit ratio favors no change other than as noted in my dictated progress note. Diagnosis: Problems: (1) Anxiety disorder (2) Impulse control disorder (3) Mild cognitive impairment (4) Major depressive disorder, recurrent episode DAVY CISNEROS MD Mar 15, 2018 20:50
[2018-03-16 05:53] VITALS: BP 121/64
--- NOTE | 2018-03-16 07:30 | NUR ---
Nursing Note: Behavior Pt approached nurses station agitated yelling that a bag of his belongings in his roommate's closet and he demanded to be allowed to look. No amount of reassurance would calm patient. Then pt claimed that bag contained valuable contents which staff informed pt would not be the case since valuables are always placed in hospital safe. Pt remained agitated; however he went to dining room for coffee.
[2018-03-16] MEDS: SERTRALINE 100 MG TABLET. PO SCH (08:01)
[2018-03-16] MEDS: ASPIRIN 81 MG TAB.CHEW PO SCH (08:01)
[2018-03-16] MEDS: OMEGA-3 FATTY ACIDS/FISH OIL 1,000 MG CAPSULE. PO SCH (08:01)
[2018-03-16] MEDS: CLOPIDOGREL BISULFATE 75 MG TABLET PO SCH (08:01)
[2018-03-16] MEDS: MULTIVITAMIN I-VITE TABLET. PO SCH (08:01)
[2018-03-16] MEDS: CALCIUM CARBONATE 500 MG TABLET PO SCH (08:02)
[2018-03-16] MEDS: GLUCOSAMINE/CHOND 500/400MG CAPSULE PO SCH (08:02)
[2018-03-16] MEDS: QUEtiapine 25 MG TABLET. PO SCH ×2 (08:02→13:13)
[2018-03-16] MEDS: ROSUVASTATIN 20 MG PO SCH (08:03)
[2018-03-16] MEDS: LISINOPRIL 5 MG TABLET. PO SCH (08:28)
[2018-03-16] MEDS: METOPROLOL SUCC 24HR ER 50 MG TAB.ER.24H. PO SCH (08:29)
--- NOTE | 2018-03-16 13:17 | NUR ---
Behavior Intervention Response and Plan: BIRP Note: Behavior: Assumed Care of patient, patient located in Hallway at shift change. Patient exhibited the following behavior Agitated, Restless, Irritable. Brief assessment on rounds of vital signs, medication needs, lab studies, and pain. Treatment plan problems Impulse Control D/O and fall risk. Intervention: Patient assessed and the following interventions initiated safety checks 15 Minute Checks Head to toe Assessment , Cognitive Assessment , Medications. Response: After interactions and interventions patient responded in the following manner, Calm , Compliant ,Cooperative. Continue to assess behaviors and condition will continue to monitor throughout the shift as needed. Patient educated on ADL's, and hand hygiene. 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 Continue to assess patient for changes in above assessment. Monitor for medication needs, pain, and safety concerns. Hourly rounding performed to ensure safe environment.
[2018-03-16 16:05] VITALS: BP 126/60
--- NOTE | 2018-03-16 20:49 | PDOC ---
Exam Note: Harinder Note: Please also refer to the separate dictated note~for this date of service dictated separately.~Patient seen individually. Discussed the patient with Nursing staff reviewed the chart.~Reviewed interim history and current functioning. Reviewed vital signs,~Labs/ Radiology~and current medications noted below. Continue current treatment with the changes noted in the dictated addendum note Assessment: Vital Signs: Vital Signs Date Time Temp Pulse Resp B/P (MAP) Pulse Ox O2 Delivery O2 Flow Rate FiO2 03/16/18 16:05 97.7 53 20 126/60 (82) 97 03/13/18 16:17 Room Air I&O Intake and Output 03/16/18 07:00 Intake Total 840 ml Balance 840 ml Intake Oral 840 ml Current Medications: Meds: Current Medications Olanzapine (ZyPREXA ZYDIS) 1.25 mg PRN Q2HR PRN PO PSYCHOSIS Last administered on 03/16/18at 08:08; Start 02/28/18 at 12:00 Acetaminophen (Tylenol) 650 mg PRN Q6HRS PRN PO PAIN / TEMP; Start 02/28/18 at 13:15 Multi-Ingredient Ointment (Analgesic [place]) 1 sophia PRN QID PRN TP MUSCLE PAIN; Start 02/28/18 at 13:15 Al Hydroxide/Mg Hydroxide (Mylanta Plus Xs) 15 ml PRN AFTMEALHC PRN PO DYSPEPSIA; Start 02/28/18 at 13:15 Magnesium Hydroxide (Milk Of Magnesia) 2,400 mg PRN QHS PRN PO CONSTIPATION; Start 02/28/18 at 13:15 Calcium Carbonate/ Glycine (Oscal) 500 mg DAILY PO Last administered on at 08:02; Start 03/01/18 at 09:00 Clopidogrel Bisulfate (Plavix) 75 mg DAILY PO Last administered on 03/16/18at 08 :01; Start 03/01/18 at 09:00 Lisinopril (Prinivil) 5 mg DAILY PO Last administered on 03/16/18at 08:28; Start 03/01/18 at 09:00 Aspirin (Children'S Aspirin) 81 mg DAILYWBKFT PO Last administered on at 08:01; Start 03/01/18 at 08:00 Atorvastatin Calcium (Lipitor) 40 mg DAILY PO Last administered on 03/04/18 08: 25; Start 03/01/18 at 09:00; Stop 03/04/18 at 13:36; Status DC Glucosamine/ Chondroitin (Glucosamine-Chondroitin 500/400mg) 1 cap DAILY PO Last administered on 03/16/18at 08:02; Start 03/01/18 at 09:00 Metoprolol Succinate (Toprol Xl) 50 mg DAILY PO Last administered on 03/16/18at 08:29; Start 03/01/18 at 09:00 Fish Oil (Fish Oil) 1,000 mg DAILY PO Last administered on 03/16/18at 08:01; Start 03/01/18 at 09:00 Multivitamins/ Minerals (I-Andre) 1 tab DAILY PO Last administered on 03/16/18at 08:01; Start 03/01/18 at 09:00 Sertraline HCl (Zoloft) 25 mg DAILY PO Last administered on 03/02/18at 08:45; Start 03/01/18 at 09:00; Stop 03/03/18 at 08:00; Status DC Sertraline HCl (Zoloft) 50 mg DAILY PO Last administered on 03/09/18at 09:33; Start 03/03/18 at 09:00; Stop 03/09/18 at 10:49; Status DC Quetiapine Fumarate (SEROquel) 12.5 mg BID@0900,1300 PO Last administered on at 13:24; Start 03/02/18 at 09:00; Stop 03/13/18 at 18:24; Status DC Non-Formulary Medication 1 ea DAILY PO Last administered on 03/16/18at 08:03; Start 03/05/18 at 09:00 Sertraline HCl (Zoloft) 75 mg DAILY PO Last administered on 03/12/18at 08:14; Start 03/10/18 at 09:00; Stop 03/12/18 at 09:30; Status DC Sertraline HCl (Zoloft) 100 mg DAILY PO Last administered on 03/16/18at 08:01; Start 03/13/18 at 09:00 Quetiapine Fumarate (SEROquel) 12.5 mg 1300 PO Last administered on 03/16/18at 13:13; Start 03/14/18 at 13:00 Quetiapine Fumarate (SEROquel) 25 mg DAILY PO Last administered on 03/16/18at 08 :02; Start 03/14/18 at 09:00 Bupropion HCl (Wellbutrin Xl) 150 mg DAILY PO ; Start 03/17/18 at 09:00 Active Scripts Active Reported Lisinopril 5 Mg Tablet 5 Mg PO DAILY [id number] (Calcium Carbonate) 500 Mg Tablet 500 Mg PO DAILY Glucosamine Chondroitin [place] (Gluc Emanuel Dipo Ch/Gb Emanuel/C/Sushant) 1 Each Tablet 1 Each PO DAILY Multivitamins (Multivitamin) 1 Each Tablet 1 Each PO [place] 3 Fish Oil Softgel ([place]-3 Fatty Acids/Fish Oil) 1 Each Capsule.dr 1 Each PO DAILY Aspirin 81 Mg Tab.chew 81 Mg PO DAILY Lipitor (Atorvastatin Calcium) 40 Mg Tablet 40 Mg PO DAILY Plavix (Clopidogrel Bisulfate) 75 Mg Tablet 75 Mg PO DAILY Metoprolol Succinate ( Xl ) (Metoprolol Succinate) 50 Mg Tab.er.24h 50 Mg PO DAILY I have reviewed the current psychotropics carefully including drug interactions. Risk benefit ratio favors no change other than as noted in my dictated progress note. Diagnosis: Problems: (1) Anxiety disorder (2) Impulse control disorder (3) Mild cognitive impairment (4) Major depressive disorder, recurrent episode DAVY CISNEROS MD Mar 16, 2018 20:49
--- NOTE | 2018-03-17 02:12 | NUR ---
Nursing Note Patient found in patient room at start of shift. Patient is alert and oriented to self, date and location. Patient very irritable with both staff and other patients. Patient is very concerned with the contents of his closet even getting agitated when staff approaches his roommates closet door. Patient remains in room at this time.
[2018-03-17 05:46] VITALS: BP 139/62
[2018-03-17] MEDS: ASPIRIN 81 MG TAB.CHEW PO SCH (08:19)
[2018-03-17] MEDS: LISINOPRIL 5 MG TABLET. PO SCH (08:20)
[2018-03-17] MEDS: CALCIUM CARBONATE 500 MG TABLET PO SCH (08:20)
[2018-03-17] MEDS: MULTIVITAMIN I-VITE TABLET. PO SCH (08:20)
[2018-03-17] MEDS: QUEtiapine 25 MG TABLET. PO SCH ×2 (08:20→12:35)
[2018-03-17] MEDS: GLUCOSAMINE/CHOND 500/400MG CAPSULE PO SCH (08:20)
[2018-03-17] MEDS: OMEGA-3 FATTY ACIDS/FISH OIL 1,000 MG CAPSULE. PO SCH (08:20)
[2018-03-17] MEDS: SERTRALINE 100 MG TABLET. PO SCH (08:20)
[2018-03-17] MEDS: CLOPIDOGREL BISULFATE 75 MG TABLET PO SCH (08:20)
[2018-03-17] MEDS: METOPROLOL SUCC 24HR ER 50 MG TAB.ER.24H. PO SCH (08:21)
[2018-03-17] MEDS: ROSUVASTATIN 20 MG PO SCH (08:23)
[2018-03-17] MEDS: buPROPion XL 150 MG TAB.ER.24H PO SCH (08:23)
--- NOTE | 2018-03-17 09:52 | NUR ---
Behavior Intervention Response and Plan: BIRP Note: Behavior: Assumed Care of patient, patient located in Patient Room at shift change. Patient exhibited the following behavior Calm, Compliant, Withdrawn. Brief assessment on rounds of vital signs, medication needs, lab studies, and pain. Treatment plan problems 1-2. Intervention: Patient assessed and the following interventions initiated safety checks 15 Minute Checks Cognitive Assessment , Head to toe Assessment , Medications. Response: After interactions and interventions patient responded in the following manner, Compliant , Withdrawn ,Cooperative. Continue to assess behaviors and condition will continue to monitor throughout the shift as needed. Patient educated on ADL's, and hand hygiene. 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 Continue to assess patient for changes in above assessment. Monitor for medication needs, pain, and safety concerns. Hourly rounding performed to ensure safe environment.
[2018-03-17 16:10] VITALS: BP 124/67
--- NOTE | 2018-03-17 17:51 | PN ---
DATE: 03/15/2018 This is a late entry 03/15/2018 covers the elements not covered in my initial note 03/15/2018. SUBJECTIVE: The patient was staffed at a treatment team meeting with the entire team and seen individually in the evening. Appetite 70%, sleeping about 6-1/2 hours. Previous evening, he was somewhat agitated, resistive to medications at times. REVIEW OF SYSTEMS: No CV, , pulmonary, eye, ENT system symptoms on review. MENTAL STATUS EXAM: Oriented to himself and situation. Speech has some latency, coherent. Abstraction fair, computation impaired, language function intact, attention span short. Mood and affect remains somewhat dysphoric, but showing some improvement. LABORATORY DATA: Reviewed. IMPRESSION: Unchanged from initial note. PLAN: Continue psychotropics from initial note. Adjust further as clinically indicated. MAN Rafal CISNEROS MD DR: NOREEN/charly JOB#: [id number] / [id number]
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
--- NOTE | 2018-03-17 20:49 | PDOC ---
Exam Note: Harinder Note: Please also refer to the separate dictated note~for this date of service dictated separately.~Patient seen individually. Discussed the patient with Nursing staff reviewed the chart.~Reviewed interim history and current functioning. Reviewed vital signs,~Labs/ Radiology~and current medications noted below. Continue current treatment with the changes noted in the dictated addendum note Assessment: Vital Signs: Vital Signs Date Time Temp Pulse Resp B/P (MAP) Pulse Ox O2 Delivery O2 Flow Rate FiO2 03/17/18 16:10 97.3 56 19 124/67 (86) 98 03/13/18 16:17 Room Air I&O Intake and Output 03/17/18 07:00 Intake Total 1080 ml Balance 1080 ml Intake Oral 1080 ml Current Medications: Meds: Current Medications Olanzapine (ZyPREXA ZYDIS) 1.25 mg PRN Q2HR PRN PO PSYCHOSIS Last administered on 03/16/18at 08:08; Start 02/28/18 at 12:00 Acetaminophen (Tylenol) 650 mg PRN Q6HRS PRN PO PAIN / TEMP; Start 02/28/18 at 13:15 Multi-Ingredient Ointment (Analgesic [place]) 1 sophia PRN QID PRN TP MUSCLE PAIN; Start 02/28/18 at 13:15 Al Hydroxide/Mg Hydroxide (Mylanta Plus Xs) 15 ml PRN AFTMEALHC PRN PO DYSPEPSIA; Start 02/28/18 at 13:15 Magnesium Hydroxide (Milk Of Magnesia) 2,400 mg PRN QHS PRN PO CONSTIPATION; Start 02/28/18 at 13:15 Calcium Carbonate/ Glycine (Oscal) 500 mg DAILY PO Last administered on at 08:20; Start 03/01/18 at 09:00 Clopidogrel Bisulfate (Plavix) 75 mg DAILY PO Last administered on 03/17/18at 08 :20; Start 03/01/18 at 09:00 Lisinopril (Prinivil) 5 mg DAILY PO Last administered on 03/17/18at 08:20; Start 03/01/18 at 09:00 Aspirin (Children'S Aspirin) 81 mg DAILYWBKFT PO Last administered on at 08:19; Start 03/01/18 at 08:00 Atorvastatin Calcium (Lipitor) 40 mg DAILY PO Last administered on 03/04/18at 08: 25; Start 03/01/18 at 09:00; Stop 03/04/18 at 13:36; Status DC Glucosamine/ Chondroitin (Glucosamine-Chondroitin 500/400mg) 1 cap DAILY PO Last administered on 03/17/18at 08:20; Start 03/01/18 at 09:00 Metoprolol Succinate (Toprol Xl) 50 mg DAILY PO Last administered on 03/17/18 08:21; Start 03/01/18 at 09:00 Fish Oil (Fish Oil) 1,000 mg DAILY PO Last administered on 03/17/18at 08:20; Start 03/01/18 at 09:00 Multivitamins/ Minerals (I-Andre) 1 tab DAILY PO Last administered on 03/17/18 08:20; Start 03/01/18 at 09:00 Sertraline HCl (Zoloft) 25 mg DAILY PO Last administered on 03/02/18at 08:45; Start 03/01/18 at 09:00; Stop 03/03/18 at 08:00; Status DC Sertraline HCl (Zoloft) 50 mg DAILY PO Last administered on 03/09/18at 09:33; Start 03/03/18 at 09:00; Stop 03/09/18 at 10:49; Status DC Quetiapine Fumarate (SEROquel) 12.5 mg BID@0900,1300 PO Last administered on at 13:24; Start 03/02/18 at 09:00; Stop 03/13/18 at 18:24; Status DC Non-Formulary Medication 1 ea DAILY PO Last administered on 03/17/18at 08:23; Start 03/05/18 at 09:00 Sertraline HCl (Zoloft) 75 mg DAILY PO Last administered on 03/12/18at 08:14; Start 03/10/18 at 09:00; Stop 03/12/18 at 09:30; Status DC Sertraline HCl (Zoloft) 100 mg DAILY PO Last administered on 03/17/18at 08:20; Start 03/13/18 at 09:00 Quetiapine Fumarate (SEROquel) 12.5 mg 1300 PO Last administered on 03/17/18at 12:35; Start 03/14/18 at 13:00 Quetiapine Fumarate (SEROquel) 25 mg DAILY PO Last administered on 03/17/18at 08 :20; Start 03/14/18 at 09:00 Bupropion HCl (Wellbutrin Xl) 150 mg DAILY PO Last administered on 03/17/18at 08 :23; Start 03/17/18 at 09:00 Active Scripts Active Reported Lisinopril 5 Mg Tablet 5 Mg PO DAILY [id number] (Calcium Carbonate) 500 Mg Tablet 500 Mg PO DAILY Glucosamine Chondroitin Caplet (Gluc Emanuel Dipo Ch/Bg Emanuel/C/Sushant) 1 Each Tablet 1 Each PO DAILY Multivitamins (Multivitamin) 1 Each Tablet 1 Each PO [place] 3 Fish Oil Softgel ([place]-3 Fatty Acids/Fish Oil) 1 Each Capsule.dr 1 Each PO DAILY Aspirin 81 Mg Tab.chew 81 Mg PO DAILY Lipitor (Atorvastatin Calcium) 40 Mg Tablet 40 Mg PO DAILY Plavix (Clopidogrel Bisulfate) 75 Mg Tablet 75 Mg PO DAILY Metoprolol Succinate ( Xl ) (Metoprolol Succinate) 50 Mg Tab.er.24h 50 Mg PO DAILY I have reviewed the current psychotropics carefully including drug interactions. Risk benefit ratio favors no change other than as noted in my dictated progress note. Diagnosis: Problems: (1) Anxiety disorder (2) Impulse control disorder (3) Mild cognitive impairment (4) Major depressive disorder, recurrent episode DAVY CISNEROS MD Mar 17, 2018 20:49
--- NOTE | 2018-03-17 23:23 | NUR ---
Behavior Intervention Response and Plan: BIRP Note: Behavior: Assumed Care of patient, patient located in Day Room at shift change. Patient exhibited the following behavior Calm, Compliant, Appropriate. Brief assessment on rounds of vital signs, medication needs, lab studies, and pain. Treatment plan problems . Intervention: Patient assessed and the following interventions initiated safety checks 15 Minute Checks Oral Hydration , ADL's , Nutrition. Response: After interactions and interventions patient responded in the following manner, Calm , Withdrawn ,Appropriate. Continue to assess behaviors and condition will continue to monitor throughout the shift as needed. Patient educated on ADL's, and hand hygiene. 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 Continue to assess patient for changes in above assessment. Monitor for medication needs, pain, and safety concerns. Hourly rounding performed to ensure safe environment.
--- NOTE | 2018-03-18 02:17 | PN ---
DATE: 03/16/2018 ADDENDUM Earlier in the day discussed with [facility] social service staff. The family wants the statement that the patient is unable to make his own decision. The statement needs to notarized. I have completed this since the patient lacks capacity to help, make financial and health care decisions for himself consequent to his noted diagnoses. MAN Rafal CISNEROS MD DR: NOREEN/charly JOB#: [id number] / [id number]
[2018-03-18 05:50] VITALS: BP 114/49
[2018-03-18] MEDS: buPROPion XL 150 MG TAB.ER.24H PO SCH (08:00)
[2018-03-18] MEDS: MULTIVITAMIN I-VITE TABLET. PO SCH (08:00)
[2018-03-18] MEDS: OMEGA-3 FATTY ACIDS/FISH OIL 1,000 MG CAPSULE. PO SCH (08:01)
[2018-03-18] MEDS: CALCIUM CARBONATE 500 MG TABLET PO SCH (08:01)
[2018-03-18] MEDS: SERTRALINE 100 MG TABLET. PO SCH (08:01)
[2018-03-18] MEDS: GLUCOSAMINE/CHOND 500/400MG CAPSULE PO SCH (08:01)
[2018-03-18] MEDS: ASPIRIN 81 MG TAB.CHEW PO SCH (08:01)
[2018-03-18] MEDS: CLOPIDOGREL BISULFATE 75 MG TABLET PO SCH (08:01)
[2018-03-18] MEDS: QUEtiapine 25 MG TABLET. PO SCH ×2 (08:01→13:58)
[2018-03-18] MEDS: ROSUVASTATIN 20 MG PO SCH (08:02)
[2018-03-18 08:04] VITALS: BP 108/59
[2018-03-18] MEDS: LISINOPRIL 5 MG TABLET. PO SCH (08:04)
[2018-03-18] MEDS: METOPROLOL SUCC 24HR ER 50 MG TAB.ER.24H. PO SCH (08:04)
--- NOTE | 2018-03-18 10:58 | NUR ---
Behavior Intervention Response and Plan: BIRP Note: Behavior: Assumed Care of patient, patient located in Dining Room at shift change. Patient exhibited the following behavior Disorganized, Calm, Combative. Brief assessment on rounds of vital signs, medication needs, lab studies, and pain. Treatment plan problems 1-2. Intervention: Patient assessed and the following interventions initiated safety checks 15 Minute Checks Cognitive Assessment , Head to toe Assessment , Medications. Response: After interactions and interventions patient responded in the following manner, Withdrawn , Disorganized ,Cooperative. Continue to assess behaviors and condition will continue to monitor throughout the shift as needed. Patient educated on ADL's, and hand hygiene. 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 Continue to assess patient for changes in above assessment. Monitor for medication needs, pain, and safety concerns. Hourly rounding performed to ensure safe environment.
[2018-03-18 16:02] VITALS: BP 107/64
--- NOTE | 2018-03-18 22:48 | PDOC ---
Exam Note: Harinder Note: Please also refer to the separate dictated note~for this date of service dictated separately.~Patient seen individually. Discussed the patient with Nursing staff reviewed the chart.~Reviewed interim history and current functioning. Reviewed vital signs,~Labs/ Radiology~and current medications noted below. Continue current treatment with the changes noted in the dictated addendum note Assessment: Vital Signs: Vital Signs Date Time Temp Pulse Resp B/P (MAP) Pulse Ox O2 Delivery O2 Flow Rate FiO2 03/18/18 16:02 98.1 58 18 107/64 (78) 98 03/13/18 16:17 Room Air I&O Intake and Output 03/18/18 07:00 Intake Total 838 ml Balance 838 ml Intake Oral 838 ml Current Medications: Meds: Current Medications Olanzapine (ZyPREXA ZYDIS) 1.25 mg PRN Q2HR PRN PO PSYCHOSIS Last administered on 03/16/18at 08:08; Start 02/28/18 at 12:00 Acetaminophen (Tylenol) 650 mg PRN Q6HRS PRN PO PAIN / TEMP; Start 02/28/18 at 13:15 Multi-Ingredient Ointment (Analgesic [place]) 1 sophia PRN QID PRN TP MUSCLE PAIN; Start 02/28/18 at 13:15 Al Hydroxide/Mg Hydroxide (Mylanta Plus Xs) 15 ml PRN AFTMEALHC PRN PO DYSPEPSIA; Start 02/28/18 at 13:15 Magnesium Hydroxide (Milk Of Magnesia) 2,400 mg PRN QHS PRN PO CONSTIPATION; Start 02/28/18 at 13:15 Calcium Carbonate/ Glycine (Oscal) 500 mg DAILY PO Last administered on at 08:01; Start 03/01/18 at 09:00 Clopidogrel Bisulfate (Plavix) 75 mg DAILY PO Last administered on 03/18/18at 08 :01; Start 03/01/18 at 09:00 Lisinopril (Prinivil) 5 mg DAILY PO Last administered on 03/17/18at 08:20; Start 03/01/18 at 09:00 Aspirin (Children'S Aspirin) 81 mg DAILYWBKFT PO Last administered on at 08:01; Start 03/01/18 at 08:00 Atorvastatin Calcium (Lipitor) 40 mg DAILY PO Last administered on 03/04/18 08: 25; Start 03/01/18 at 09:00; Stop 03/04/18 at 13:36; Status DC Glucosamine/ Chondroitin (Glucosamine-Chondroitin 500/400mg) 1 cap DAILY PO Last administered on 03/18/18at 08:01; Start 03/01/18 at 09:00 Metoprolol Succinate (Toprol Xl) 50 mg DAILY PO Last administered on 03/17/18at 08:21; Start 03/01/18 at 09:00 Fish Oil (Fish Oil) 1,000 mg DAILY PO Last administered on 03/18/18at 08:01; Start 03/01/18 at 09:00 Multivitamins/ Minerals (I-Andre) 1 tab DAILY PO Last administered on 03/18/18at 08:00; Start 03/01/18 at 09:00 Sertraline HCl (Zoloft) 25 mg DAILY PO Last administered on 03/02/18at 08:45; Start 03/01/18 at 09:00; Stop 03/03/18 at 08:00; Status DC Sertraline HCl (Zoloft) 50 mg DAILY PO Last administered on 03/09/18at 09:33; Start 03/03/18 at 09:00; Stop 03/09/18 at 10:49; Status DC Quetiapine Fumarate (SEROquel) 12.5 mg BID@0900,1300 PO Last administered on at 13:24; Start 03/02/18 at 09:00; Stop 03/13/18 at 18:24; Status DC Non-Formulary Medication 1 ea DAILY PO Last administered on 03/18/18at 08:02; Start 03/05/18 at 09:00 Sertraline HCl (Zoloft) 75 mg DAILY PO Last administered on 03/12/18at 08:14; Start 03/10/18 at 09:00; Stop 03/12/18 at 09:30; Status DC Sertraline HCl (Zoloft) 100 mg DAILY PO Last administered on 03/18/18at 08:01; Start 03/13/18 at 09:00 Quetiapine Fumarate (SEROquel) 12.5 mg 1300 PO Last administered on 03/18/18at 13:58; Start 03/14/18 at 13:00 Quetiapine Fumarate (SEROquel) 25 mg DAILY PO Last administered on 03/18/18at 08 :01; Start 03/14/18 at 09:00 Bupropion HCl (Wellbutrin Xl) 150 mg DAILY PO Last administered on 03/18/18at 08 :00; Start 03/17/18 at 09:00 Active Scripts Active Reported Lisinopril 5 Mg Tablet 5 Mg PO DAILY [id number] (Calcium Carbonate) 500 Mg Tablet 500 Mg PO DAILY Glucosamine Chondroitin Caplet (Gluc Emanuel Dipo Ch/Bg Emanuel/C/Sushant) 1 Each Tablet 1 Each PO DAILY Multivitamins (Multivitamin) 1 Each Tablet 1 Each PO [place] 3 Fish Oil Softgel ([place]-3 Fatty Acids/Fish Oil) 1 Each Capsule.dr 1 Each PO DAILY Aspirin 81 Mg Tab.chew 81 Mg PO DAILY Lipitor (Atorvastatin Calcium) 40 Mg Tablet 40 Mg PO DAILY Plavix (Clopidogrel Bisulfate) 75 Mg Tablet 75 Mg PO DAILY Metoprolol Succinate ( Xl ) (Metoprolol Succinate) 50 Mg Tab.er.24h 50 Mg PO DAILY I have reviewed the current psychotropics carefully including drug interactions. Risk benefit ratio favors no change other than as noted in my dictated progress note. Diagnosis: Problems: (1) Anxiety disorder (2) Impulse control disorder (3) Mild cognitive impairment (4) Major depressive disorder, recurrent episode DAVY CISNEROS MD Mar 18, 2018 22:48
[2018-03-19 06:24] VITALS: BP 140/66
[2018-03-19] MEDS: buPROPion XL 150 MG TAB.ER.24H PO SCH (08:12)
[2018-03-19] MEDS: CALCIUM CARBONATE 500 MG TABLET PO SCH (08:12)
[2018-03-19] MEDS: SERTRALINE 100 MG TABLET. PO SCH (08:12)
[2018-03-19] MEDS: OMEGA-3 FATTY ACIDS/FISH OIL 1,000 MG CAPSULE. PO SCH (08:12)
[2018-03-19] MEDS: ASPIRIN 81 MG TAB.CHEW PO SCH (08:12)
[2018-03-19] MEDS: LISINOPRIL 5 MG TABLET. PO SCH (08:12)
[2018-03-19] MEDS: CLOPIDOGREL BISULFATE 75 MG TABLET PO SCH (08:12)
[2018-03-19] MEDS: ROSUVASTATIN 20 MG PO SCH (08:13)
[2018-03-19] MEDS: GLUCOSAMINE/CHOND 500/400MG CAPSULE PO SCH (08:13)
[2018-03-19] MEDS: METOPROLOL SUCC 24HR ER 50 MG TAB.ER.24H. PO SCH (08:13)
[2018-03-19] MEDS: MULTIVITAMIN I-VITE TABLET. PO SCH (08:13)
[2018-03-19] MEDS: QUEtiapine 25 MG TABLET. PO SCH ×2 (08:13→13:00)
--- NOTE | 2018-03-19 10:29 | NUR ---
Behavior Intervention Response and Plan: BIRP Note: Behavior: Assumed Care of patient, patient located in Dining Room at shift change. Patient exhibited the following behavior Calm, Interactive, Cooperative. Brief assessment on rounds of vital signs, medication needs, lab studies, and pain. Treatment plan problems 1-2. Intervention: Patient assessed and the following interventions initiated safety checks 15 Minute Checks Cognitive Assessment , Head to toe Assessment , Medications. Response: After interactions and interventions patient responded in the following manner, Disorganized , Interactive ,Compliant. Continue to assess behaviors and condition will continue to monitor throughout the shift as needed. Patient educated on ADL's, and hand hygiene. 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 Continue to assess patient for changes in above assessment. Monitor for medication needs, pain, and safety concerns. Hourly rounding performed to ensure safe environment.
[2018-03-19 16:14] VITALS: BP 109/64
--- NOTE | 2018-03-19 17:53 | PN ---
DATE: 03/17/2018 This late entry, 03/17/2018, covers elements not covered in my initial note. SUBJECTIVE: I met with the patient in the evening. The patient slept 5 hours previous evening. Pleasant, cooperative, spends much time in his room. REVIEW OF SYSTEMS: No CV, , pulmonary, eye, ENT system symptoms on review. MENTAL STATUS EXAM: Oriented to himself and situation. Speech has some latency, often responses monosyllabic. Abstraction fair, computation impaired, language function intact, somewhat withdrawn. Mood and affect withdrawn. No suicidal or homicidal ideation. LABORATORY DATA: Reviewed. IMPRESSION: Unchanged from initial note. PLAN: Continue current psychotropics and Wellbutrin-XL was added 150 mg a day. Continue Zoloft 100 mg a day, Seroquel 25 mg b.i.d. and 12.5 mg at 1300. MAN SandyBrittany CISNEROS MD DR: NOREEN/charly JOB#: [id number] / [id number]
--- NOTE | 2018-03-19 20:00 | NUR ---
Behavior Intervention Response and Plan: BIRP Note: Behavior: Assumed Care of patient, patient located in Hallway at shift change. Patient exhibited the following behavior Disorganized, Irritable, Able to Focus on Task. Brief assessment on rounds of vital signs, medication needs, lab studies, and pain. Treatment plan problems . Intervention: Patient assessed and the following interventions initiated safety checks 15 Minute Checks Cognitive Assessment , Head to toe Assessment , Medications. Response: After interactions and interventions patient responded in the following manner, Disorganized , Anxious ,Disorganized. Continue to assess behaviors and condition will continue to monitor throughout the shift as needed. Patient educated on ADL's, and hand hygiene. 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 Continue to assess patient for changes in above assessment. Monitor for medication needs, pain, and safety concerns. Hourly rounding performed to ensure safe environment.
--- NOTE | 2018-03-19 20:56 | PDOC ---
Exam Note: Harinder Note: Please also refer to the separate dictated note~for this date of service dictated separately.~Patient seen individually. Discussed the patient with Nursing staff reviewed the chart.~Reviewed interim history and current functioning. Reviewed vital signs,~Labs/ Radiology~and current medications noted below. Continue current treatment with the changes noted in the dictated addendum note Assessment: Vital Signs: Vital Signs Date Time Temp Pulse Resp B/P (MAP) Pulse Ox O2 Delivery O2 Flow Rate FiO2 03/19/18 16:14 98.2 56 18 109/64 (79) 98 03/13/18 16:17 Room Air I&O Intake and Output 03/19/18 07:00 Intake Total 1320 ml Balance 1320 ml Intake Oral 1320 ml Current Medications: Meds: Current Medications Olanzapine (ZyPREXA ZYDIS) 1.25 mg PRN Q2HR PRN PO PSYCHOSIS Last administered on 03/16/18at 08:08; Start 02/28/18 at 12:00 Acetaminophen (Tylenol) 650 mg PRN Q6HRS PRN PO PAIN / TEMP; Start 02/28/18 at 13:15 Multi-Ingredient Ointment (Analgesic [place]) 1 sophia PRN QID PRN TP MUSCLE PAIN; Start 02/28/18 at 13:15 Al Hydroxide/Mg Hydroxide (Mylanta Plus Xs) 15 ml PRN AFTMEALHC PRN PO DYSPEPSIA; Start 02/28/18 at 13:15 Magnesium Hydroxide (Milk Of Magnesia) 2,400 mg PRN QHS PRN PO CONSTIPATION; Start 02/28/18 at 13:15 Calcium Carbonate/ Glycine (Oscal) 500 mg DAILY PO Last administered on at 08:12; Start 03/01/18 at 09:00 Clopidogrel Bisulfate (Plavix) 75 mg DAILY PO Last administered on 03/19/18at 08 :12; Start 03/01/18 at 09:00 Lisinopril (Prinivil) 5 mg DAILY PO Last administered on 03/19/18at 08:12; Start 03/01/18 at 09:00 Aspirin (Children'S Aspirin) 81 mg DAILYWBKFT PO Last administered on at 08:12; Start 03/01/18 at 08:00 Atorvastatin Calcium (Lipitor) 40 mg DAILY PO Last administered on 03/04/18 08: 25; Start 03/01/18 at 09:00; Stop 03/04/18 at 13:36; Status DC Glucosamine/ Chondroitin (Glucosamine-Chondroitin 500/400mg) 1 cap DAILY PO Last administered on 03/19/18 08:13; Start 03/01/18 at 09:00 Metoprolol Succinate (Toprol Xl) 50 mg DAILY PO Last administered on 03/19/18 08:13; Start 03/01/18 at 09:00 Fish Oil (Fish Oil) 1,000 mg DAILY PO Last administered on 03/19/18 08:12; Start 03/01/18 at 09:00 Multivitamins/ Minerals (I-Andre) 1 tab DAILY PO Last administered on 03/19/18 08:13; Start 03/01/18 at 09:00 Sertraline HCl (Zoloft) 25 mg DAILY PO Last administered on 03/02/18at 08:45; Start 03/01/18 at 09:00; Stop 03/03/18 at 08:00; Status DC Sertraline HCl (Zoloft) 50 mg DAILY PO Last administered on 03/09/18at 09:33; Start 03/03/18 at 09:00; Stop 03/09/18 at 10:49; Status DC Quetiapine Fumarate (SEROquel) 12.5 mg BID@0900,1300 PO Last administered on 13:24; Start 03/02/18 at 09:00; Stop 03/13/18 at 18:24; Status DC Non-Formulary Medication 1 ea DAILY PO Last administered on 03/19/18at 08:13; Start 03/05/18 at 09:00 Sertraline HCl (Zoloft) 75 mg DAILY PO Last administered on 03/12/18at 08:14; Start 03/10/18 at 09:00; Stop 03/12/18 at 09:30; Status DC Sertraline HCl (Zoloft) 100 mg DAILY PO Last administered on 03/19/18 08:12; Start 03/13/18 at 09:00 Quetiapine Fumarate (SEROquel) 12.5 mg 1300 PO Last administered on 03/19/18at 13:00; Start 03/14/18 at 13:00 Quetiapine Fumarate (SEROquel) 25 mg DAILY PO Last administered on 03/19/18at 08 :13; Start 03/14/18 at 09:00 Bupropion HCl (Wellbutrin Xl) 150 mg DAILY PO Last administered on 03/19/18at 08 :12; Start 03/17/18 at 09:00 Active Scripts Active Reported Lisinopril 5 Mg Tablet 5 Mg PO DAILY [id number] (Calcium Carbonate) 500 Mg Tablet 500 Mg PO DAILY Glucosamine Chondroitin Caplet (Gluc Emanuel Dipo Ch/Bg Emanuel/C/Sushant) 1 Each Tablet 1 Each PO DAILY Multivitamins (Multivitamin) 1 Each Tablet 1 Each PO [place] 3 Fish Oil Softgel ([place]-3 Fatty Acids/Fish Oil) 1 Each Capsule.dr 1 Each PO DAILY Aspirin 81 Mg Tab.chew 81 Mg PO DAILY Lipitor (Atorvastatin Calcium) 40 Mg Tablet 40 Mg PO DAILY Plavix (Clopidogrel Bisulfate) 75 Mg Tablet 75 Mg PO DAILY Metoprolol Succinate ( Xl ) (Metoprolol Succinate) 50 Mg Tab.er.24h 50 Mg PO DAILY I have reviewed the current psychotropics carefully including drug interactions. Risk benefit ratio favors no change other than as noted in my dictated progress note. Diagnosis: Problems: (1) Anxiety disorder (2) Impulse control disorder (3) Mild cognitive impairment (4) Major depressive disorder, recurrent episode DAVY CISNEROS MD Mar 19, 2018 20:56
--- NOTE | 2018-03-19 22:50 | PN ---
DATE: 03/18/2018 This late entry 03/18/2018 covers elements not covered in my initial note. SUBJECTIVE: I met with the patient in the evening. The patient has been social, pleasant coming out more to the group area rather than staying in his room. Gait somewhat unsteady, lowered himself to the ground at one point since he complained of feeling dizzy. No CV, , eye, ENT or pulmonary system symptoms on review. MENTAL STATUS EXAM: Oriented to himself and situation. Speech has some latency, coherent. Abstraction fair, computation impaired, language function intact. Mood and affect showing improvement. LABORATORY DATA: Reviewed. IMPRESSION: Unchanged from initial note. PLAN: Continue current psychotropics. Adjust further as clinically indicated. MAN Rafal CISNEROS MD DR: NOREEN/charly JOB#: [id number] / [id number]
--- NOTE | 2018-03-19 23:28 | PN ---
DATE: 03/19/2018 This note covers the elements not covered in my initial note. SUBJECTIVE: I met with the patient in the evening. Overall, the patient is compliant with his medications, cares, pleasant, somewhat confused with short-term memory deficits. REVIEW OF SYSTEM: No CV, , pulmonary, eye, ENT system symptoms on review. Reliability varies. MENTAL STATUS EXAM: Oriented to himself and situation. Speech coherent, has some latency. Abstraction fair, computation impaired, language function intact. Mood and affect, lability is improved. LABORATORY DATA: Reviewed. IMPRESSION: Unchanged from initial note. PLAN: No change from a psychiatric standpoint. MAN Rafal CISNEROS MD DR: NOREEN/charly JOB#: [id number] / [id number]
[2018-03-20 06:00] VITALS: BP 123/62
[2018-03-20 06:53] LABS: BASO # 0.1 x10^3/uL (0.0-0.2); BASO % 1 % (0-3); EOS # 0.2 x10^3/uL (0.0-0.7); EOS % 2 % (0-3); HEMATOCRIT 37.9 % (39.0-53.0); HEMOGLOBIN 12.9 g/dL (13.0-17.5); LYMPH # 0.9 x10^3/uL (1.0-4.8); LYMPH % 12 % (24-48); MEAN CORPUSCULAR HEMOGLOBIN 32 pg (25-35); MEAN CORPUSCULAR HGB CONC 34 g/dL (31-37); MEAN CORPUSCULAR VOLUME 94 fL (79-100); MONO # 0.8 x10^3/uL (0.0-1.1); MONO % 10 % (0-9); NEUT # 5.6 x10^3uL (1.8-7.7); NEUT % 74 % (31-73); PLATELET COUNT 207 x10^3/uL (140-400); RED BLOOD COUNT 4.05 x10^6/uL (4.30-5.70); RED CELL DISTRIBUTION WIDTH 13.8 % (11.5-14.5); WHITE BLOOD COUNT 7.5 x10^3/uL (4.0-11.0)
[2018-03-20 07:07] LABS: ALBUMIN 2.8 g/dL (3.4-5.0); CALCIUM 8.2 mg/dL (8.5-10.1); CREATININE 1.1 mg/dL (0.7-1.3); GFR 63.8; POTASSIUM 4.1 mmol/L (3.5-5.1); TOTAL BILIRUBIN 0.4 mg/dL (0.2-1.0); TOTAL PROTEIN 5.6 g/dL (6.4-8.2)
[2018-03-20] MEDS: MULTIVITAMIN I-VITE TABLET. PO SCH (09:17)
[2018-03-20] MEDS: SERTRALINE 100 MG TABLET. PO SCH (09:17)
[2018-03-20] MEDS: CALCIUM CARBONATE 500 MG TABLET PO SCH (09:17)
[2018-03-20] MEDS: LISINOPRIL 5 MG TABLET. PO SCH (09:17)
[2018-03-20] MEDS: GLUCOSAMINE/CHOND 500/400MG CAPSULE PO SCH (09:17)
[2018-03-20] MEDS: QUEtiapine 25 MG TABLET. PO SCH ×2 (09:18→12:23)
[2018-03-20] MEDS: ASPIRIN 81 MG TAB.CHEW PO SCH (09:18)
[2018-03-20] MEDS: OMEGA-3 FATTY ACIDS/FISH OIL 1,000 MG CAPSULE. PO SCH (09:18)
[2018-03-20] MEDS: CLOPIDOGREL BISULFATE 75 MG TABLET PO SCH (09:18)
[2018-03-20] MEDS: METOPROLOL SUCC 24HR ER 50 MG TAB.ER.24H. PO SCH (09:18)
[2018-03-20] MEDS: buPROPion XL 150 MG TAB.ER.24H PO SCH (09:18)
[2018-03-20] MEDS: ROSUVASTATIN 20 MG PO SCH (09:21)
--- NOTE | 2018-03-20 11:37 | NUR ---
Behavior Intervention Response and Plan: BIRP Note: Behavior: Assumed Care of patient, patient located in Day Room at shift change. Patient exhibited the following behavior Calm, Social, Compliant. Brief assessment on rounds of vital signs, medication needs, lab studies, and pain. Treatment plan problems . Intervention: Patient assessed and the following interventions initiated safety checks 15 Minute Checks Head to toe Assessment , Medications , Cognitive Assessment. Response: After interactions and interventions patient responded in the following manner, Cooperative , Social ,Able to Focus on Task. Continue to assess behaviors and condition will continue to monitor throughout the shift as needed. Patient educated on ADL's, and hand hygiene. 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 Continue to assess patient for changes in above assessment. Monitor for medication needs, pain, and safety concerns. Hourly rounding performed to ensure safe environment.
[2018-03-20 16:27] VITALS: BP 95/48
--- NOTE | 2018-03-20 20:00 | NUR ---
Behavior Intervention Response and Plan: BIRP Note: Behavior: Assumed Care of patient, patient located in Hallway at shift change. Patient exhibited the following behavior Interactive, Calm, Appropriate. Brief assessment on rounds of vital signs, medication needs, lab studies, and pain. Treatment plan problems . Intervention: Patient assessed and the following interventions initiated safety checks 15 Minute Checks Cognitive Assessment , Head to toe Assessment , Medications. Response: After interactions and interventions patient responded in the following manner, Cooperative , Interactive ,Calm. Continue to assess behaviors and condition will continue to monitor throughout the shift as needed. Patient educated on ADL's, and hand hygiene. 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 Continue to assess patient for changes in above assessment. Monitor for medication needs, pain, and safety concerns. Hourly rounding performed to ensure safe environment.
--- NOTE | 2018-03-20 20:54 | PDOC ---
Exam Note: Harinder Note: Please also refer to the separate dictated note~for this date of service dictated separately.~Patient seen individually. Discussed the patient with Nursing staff reviewed the chart.~Reviewed interim history and current functioning. Reviewed vital signs,~Labs/ Radiology~and current medications noted below. Continue current treatment with the changes noted in the dictated addendum note Assessment: Vital Signs: Vital Signs Date Time Temp Pulse Resp B/P (MAP) Pulse Ox O2 Delivery O2 Flow Rate FiO2 03/20/18 16:27 97.9 50 18 95/48 (64) 99 Room Air I&O Intake and Output 03/20/18 07:01 Intake Total 1320 ml Balance 1320 ml Intake Oral 1320 ml Labs: Laboratory Tests Test 03/20/18 06:28 White Blood Count 7.5 x10^3/uL (4.0-11.0) Red Blood Count 4.05 x10^6/uL (4.30-5.70) L Hemoglobin 12.9 g/dL (13.0-17.5) L Hematocrit 37.9 % (39.0-53.0) L Mean Corpuscular Volume 94 fL (79-100) Mean Corpuscular Hemoglobin 32 pg (25-35) Mean Corpuscular Hemoglobin Concent 34 g/dL (31-37) Red Cell Distribution Width 13.8 % (11.5-14.5) Platelet Count 207 x10^3/uL (140-400) Neutrophils (%) (Auto) 74 % (31-73) H Lymphocytes (%) (Auto) 12 % (24-48) L Monocytes (%) (Auto) 10 % (0-9) H Eosinophils (%) (Auto) 2 % (0-3) Basophils (%) (Auto) 1 % (0-3) Neutrophils # (Auto) 5.6 x10^3uL (1.8-7.7) Lymphocytes # (Auto) 0.9 x10^3/uL (1.0-4.8) L Monocytes # (Auto) 0.8 x10^3/uL (0.0-1.1) Eosinophils # (Auto) 0.2 x10^3/uL (0.0-0.7) Basophils # (Auto) 0.1 x10^3/uL (0.0-0.2) Sodium Level 140 mmol/L (136-145) Potassium Level 4.1 mmol/L (3.5-5.1) Chloride Level 107 mmol/L (98-107) Carbon Dioxide Level 29 mmol/L (21-32) Anion Gap 4 (6-14) L Blood Urea Nitrogen 12 mg/dL (8-26) Creatinine 1.1 mg/dL (0.7-1.3) Estimated GFR (Cockcroft-Gault) 63.8 BUN/Creatinine Ratio 11 (6-20) Glucose Level 85 mg/dL (70-99) Calcium Level 8.2 mg/dL (8.5-10.1) L Total Bilirubin 0.4 mg/dL (0.2-1.0) Aspartate Amino Transferase (AST) 18 U/L (15-37) Alanine Aminotransferase (ALT) 21 U/L (16-63) Alkaline Phosphatase 80 U/L (46-116) Total Protein 5.6 g/dL (6.4-8.2) L Albumin 2.8 g/dL (3.4-5.0) L Albumin/Globulin Ratio 1.0 (1.0-1.7) Current Medications: Meds: Current Medications Olanzapine (ZyPREXA ZYDIS) 1.25 mg PRN Q2HR PRN PO PSYCHOSIS Last administered on 03/16/18at 08:08; Start 02/28/18 at 12:00 Acetaminophen (Tylenol) 650 mg PRN Q6HRS PRN PO PAIN / TEMP; Start 02/28/18 at 13:15 Multi-Ingredient Ointment (Analgesic [place]) 1 sophia PRN QID PRN TP MUSCLE PAIN; Start 02/28/18 at 13:15 Al Hydroxide/Mg Hydroxide (Mylanta Plus Xs) 15 ml PRN AFTMEALHC PRN PO DYSPEPSIA; Start 02/28/18 at 13:15 Magnesium Hydroxide (Milk Of Magnesia) 2,400 mg PRN QHS PRN PO CONSTIPATION; Start 02/28/18 at 13:15 Calcium Carbonate/ Glycine (Oscal) 500 mg DAILY PO Last administered on at 09:17; Start 03/01/18 at 09:00 Clopidogrel Bisulfate (Plavix) 75 mg DAILY PO Last administered on 03/20/18at 09 :18; Start 03/01/18 at 09:00 Lisinopril (Prinivil) 5 mg DAILY PO Last administered on 03/20/18 09:17; Start 03/01/18 at 09:00 Aspirin (Children'S Aspirin) 81 mg DAILYWBKFT PO Last administered on at 09:18; Start 03/01/18 at 08:00 Atorvastatin Calcium (Lipitor) 40 mg DAILY PO Last administered on 03/04/18at 08: 25; Start 03/01/18 at 09:00; Stop 03/04/18 at 13:36; Status DC Glucosamine/ Chondroitin (Glucosamine-Chondroitin 500/400mg) 1 cap DAILY PO Last administered on 03/20/18 09:17; Start 03/01/18 at 09:00 Metoprolol Succinate (Toprol Xl) 50 mg DAILY PO Last administered on 03/20/18 09:18; Start 03/01/18 at 09:00 Fish Oil (Fish Oil) 1,000 mg DAILY PO Last administered on 03/20/18at 09:18; Start 03/01/18 at 09:00 Multivitamins/ Minerals (I-Andre) 1 tab DAILY PO Last administered on 03/20/18 09:17; Start 03/01/18 at 09:00 Sertraline HCl (Zoloft) 25 mg DAILY PO Last administered on 03/02/18at 08:45; Start 03/01/18 at 09:00; Stop 03/03/18 at 08:00; Status DC Sertraline HCl (Zoloft) 50 mg DAILY PO Last administered on 03/09/18at 09:33; Start 03/03/18 at 09:00; Stop 03/09/18 at 10:49; Status DC Quetiapine Fumarate (SEROquel) 12.5 mg BID@0900,1300 PO Last administered on at 13:24; Start 03/02/18 at 09:00; Stop 03/13/18 at 18:24; Status DC Non-Formulary Medication 1 ea DAILY PO Last administered on 03/20/18at 09:21; Start 03/05/18 at 09:00 Sertraline HCl (Zoloft) 75 mg DAILY PO Last administered on 03/12/18at 08:14; Start 03/10/18 at 09:00; Stop 03/12/18 at 09:30; Status DC Sertraline HCl (Zoloft) 100 mg DAILY PO Last administered on 03/20/18 09:17; Start 03/13/18 at 09:00 Quetiapine Fumarate (SEROquel) 12.5 mg 1300 PO Last administered on 03/20/18at 12:23; Start 03/14/18 at 13:00 Quetiapine Fumarate (SEROquel) 25 mg DAILY PO Last administered on 03/20/18at 09 :18; Start 03/14/18 at 09:00 Bupropion HCl (Wellbutrin Xl) 150 mg DAILY PO Last administered on 03/20/18 09 :18; Start 03/17/18 at 09:00 Active Scripts Active Reported Lisinopril 5 Mg Tablet 5 Mg PO DAILY [id number] (Calcium Carbonate) 500 Mg Tablet 500 Mg PO DAILY Glucosamine Chondroitin Caplet (Gluc Emanuel Dipo Ch/Bg Emanuel/C/Sushant) 1 Each Tablet 1 Each PO DAILY Multivitamins (Multivitamin) 1 Each Tablet 1 Each PO [place] 3 Fish Oil Softgel ([place]-3 Fatty Acids/Fish Oil) 1 Each Capsule.dr 1 Each PO DAILY Aspirin 81 Mg Tab.chew 81 Mg PO DAILY Lipitor (Atorvastatin Calcium) 40 Mg Tablet 40 Mg PO DAILY Plavix (Clopidogrel Bisulfate) 75 Mg Tablet 75 Mg PO DAILY Metoprolol Succinate ( Xl ) (Metoprolol Succinate) 50 Mg Tab.er.24h 50 Mg PO DAILY I have reviewed the current psychotropics carefully including drug interactions. Risk benefit ratio favors no change other than as noted in my dictated progress note. Diagnosis: Problems: (1) Anxiety disorder (2) Impulse control disorder (3) Mild cognitive impairment (4) Major depressive disorder, recurrent episode DAVY CISNEROS MD Mar 20, 2018 20:54
[2018-03-21 07:28] VITALS: BP 124/70
[2018-03-21] MEDS: SERTRALINE 100 MG TABLET. PO SCH (08:25)
[2018-03-21] MEDS: buPROPion XL 150 MG TAB.ER.24H PO SCH (08:25)
[2018-03-21] MEDS: CLOPIDOGREL BISULFATE 75 MG TABLET PO SCH (08:25)
[2018-03-21] MEDS: METOPROLOL SUCC 24HR ER 50 MG TAB.ER.24H. PO SCH (08:25)
[2018-03-21] MEDS: LISINOPRIL 5 MG TABLET. PO SCH (08:25)
[2018-03-21] MEDS: MULTIVITAMIN I-VITE TABLET. PO SCH (08:26)
[2018-03-21] MEDS: ASPIRIN 81 MG TAB.CHEW PO SCH (08:26)
[2018-03-21] MEDS: GLUCOSAMINE/CHOND 500/400MG CAPSULE PO SCH (08:26)
[2018-03-21] MEDS: OMEGA-3 FATTY ACIDS/FISH OIL 1,000 MG CAPSULE. PO SCH (08:26)
[2018-03-21] MEDS: QUEtiapine 25 MG TABLET. PO SCH ×2 (08:26→12:02)
[2018-03-21] MEDS: CALCIUM CARBONATE 500 MG TABLET PO SCH (08:26)
[2018-03-21] MEDS: ROSUVASTATIN 20 MG PO SCH (08:27)
--- NOTE | 2018-03-21 14:23 | NUR ---
SW completed Level II evaluation w/Cally from [employer]. She will finalize the determination and fax the letter by the end of this week.
[2018-03-21 16:39] VITALS: BP 107/53
--- NOTE | 2018-03-21 20:02 | PN ---
DATE: 03/20/2018 PSYCHIATRIC PROGRESS NOTE This is a late entry 03/20/2018 covers elements not covered in my initial note. SUBJECTIVE: I met with the patient in the evening. The patient slept 6-1/2 hours, quite pleasant, compliant with medication. Short term memory deficits are evident. REVIEW OF SYSTEMS: No CV, , pulmonary, eye, ENT system symptoms on review. MENTAL STATUS EXAM: Oriented to himself and situation. Speech has some latency, coherent, more animated, verbal, interactive, walking with me up and down in the hallway, talking about 6000 hours flying that he has done and has a sense of humor. Oriented to himself and situation. Speech coherent, abstraction fair, computation impaired, language function intact, attention span short. Mood and affect is improved. IMPRESSION: Unchanged from initial note. PLAN: No change from psychotropics mentioned in my initial note. MAN Rafal CISNEROS MD DR: NOREEN/charly JOB#: [id number] / [id number]
[2018-03-22 05:37] VITALS: BP 124/61
[2018-03-22] MEDS: LISINOPRIL 5 MG TABLET. PO SCH (08:12)
[2018-03-22] MEDS: OMEGA-3 FATTY ACIDS/FISH OIL 1,000 MG CAPSULE. PO SCH (08:12)
[2018-03-22] MEDS: CLOPIDOGREL BISULFATE 75 MG TABLET PO SCH (08:12)
[2018-03-22] MEDS: MULTIVITAMIN I-VITE TABLET. PO SCH (08:12)
[2018-03-22] MEDS: ASPIRIN 81 MG TAB.CHEW PO SCH (08:13)
[2018-03-22] MEDS: GLUCOSAMINE/CHOND 500/400MG CAPSULE PO SCH (08:13)
[2018-03-22] MEDS: SERTRALINE 100 MG TABLET. PO SCH (08:13)
[2018-03-22] MEDS: METOPROLOL SUCC 24HR ER 50 MG TAB.ER.24H. PO SCH (08:13)
[2018-03-22] MEDS: CALCIUM CARBONATE 500 MG TABLET PO SCH (08:13)
[2018-03-22] MEDS: buPROPion XL 150 MG TAB.ER.24H PO SCH (08:13)
[2018-03-22] MEDS: QUEtiapine 25 MG TABLET. PO SCH ×2 (08:14→12:23)
[2018-03-22] MEDS: ROSUVASTATIN 20 MG PO SCH (08:15)
--- NOTE | 2018-03-22 14:30 | NUR ---
patient became anxious and was asking how can he get down stairs because he stated that he came from another building down stairs. when staff attempted to re-direct patient he called us ignorant and idiots that dont know anything at all.
--- NOTE | 2018-03-22 15:00 | NUR ---
WEEKLY THERAPEUTIC RECREATION NOTE Date of Admission: 02/28/2018 Date of AT Assessment: 03/03/2018 Goal aimed: to increase socialization and leisure awareness Initial goal: Pt. will participate in at least two groups a day. Weekly progress towards goal: achieved Group participation level: moderate to full Behaviors observed: generally interested in groups, participates often, seems to enjoy chatting with staff, contributes some ideas for activities Plan: Change goal to: Pt. will participate in most groups he is invited to.
[2018-03-22 15:58] VITALS: BP 91/50
--- NOTE | 2018-03-22 20:00 | NUR ---
Behavior Intervention Response and Plan: BIRP Note: Behavior: Assumed Care of patient, patient located in Day Room at shift change. Patient exhibited the following behavior Calm, Disorganized, Social. Brief assessment on rounds of vital signs, medication needs, lab studies, and pain. Treatment plan problems . Intervention: Patient assessed and the following interventions initiated safety checks 15 Minute Checks Cognitive Assessment , Head to toe Assessment , Medications. Response: After interactions and interventions patient responded in the following manner, Calm , Disorganized ,Appropriate. Continue to assess behaviors and condition will continue to monitor throughout the shift as needed. Patient educated on ADL's, and hand hygiene. Plan: Continue to monitor Master Treatment Plan for patient's progress toward short term goals of Decreased Agitation, Decreased Anxiety, oil heaterman goals to return to previous living setting vs placement. Continue to assess patient for changes in above assessment. Monitor for medication needs, pain, and safety concerns. Hourly rounding performed to ensure safe environment.
--- NOTE | 2018-03-22 20:12 | PDOC ---
Exam Note: Harinder Note: Late entry for date of service 21 March 2018. Please also refer to the separate dictated note~for this date of service dictated separately.~Patient seen individually. Discussed the patient with Nursing staff reviewed the chart.~ Reviewed interim history and current functioning. Reviewed vital signs,~Labs/ Radiology~and current medications noted below. Continue current treatment with the changes noted in the dictated addendum note Assessment: Vital Signs: VS - Last 72 Hours, by Label Date Time Temp Pulse Resp B/P (MAP) Pulse Ox O2 Delivery O2 Flow Rate FiO2 03/22/18 15:58 98.3 49 16 91/50 (64) 97 Room Air 03/22/18 08:13 61 124/61 03/22/18 08:12 61 124/61 03/22/18 05:37 98.2 61 20 124/61 (82) 98 Room Air 03/21/18 16:39 98.1 54 16 107/53 (71) 99 03/21/18 08:25 60 124/70 03/21/18 08:25 60 124/70 03/21/18 07:28 98.7 60 18 124/70 (88) 98 Room Air 03/20/18 16:27 97.9 50 18 95/48 (64) 99 Room Air 03/20/18 09:18 54 123/62 03/20/18 09:17 54 123/62 03/20/18 06:00 98.3 54 18 123/62 (82) 99 Room Air Vital Signs Date Time Temp Pulse Resp B/P (MAP) Pulse Ox O2 Delivery O2 Flow Rate FiO2 03/22/18 15:58 98.3 49 16 91/50 (64) 97 Room Air I&O Intake and Output 03/22/18 07:00 Intake Total 1020 ml Balance 1020 ml Intake Oral 1020 ml Current Medications: Meds: Current Medications Olanzapine (ZyPREXA ZYDIS) 1.25 mg PRN Q2HR PRN PO PSYCHOSIS Last administered on 03/16/18at 08:08; Start 02/28/18 at 12:00 Acetaminophen (Tylenol) 650 mg PRN Q6HRS PRN PO PAIN / TEMP; Start 02/28/18 at 13:15 Multi-Ingredient Ointment (Analgesic [place]) 1 sophia PRN QID PRN TP MUSCLE PAIN; Start 02/28/18 at 13:15 Al Hydroxide/Mg Hydroxide (Mylanta Plus Xs) 15 ml PRN AFTMEALHC PRN PO DYSPEPSIA; Start 02/28/18 at 13:15 Magnesium Hydroxide (Milk Of Magnesia) 2,400 mg PRN QHS PRN PO CONSTIPATION; Start 02/28/18 at 13:15 Calcium Carbonate/ Glycine (Oscal) 500 mg DAILY PO Last administered on 08:13; Start 03/01/18 at 09:00 Clopidogrel Bisulfate (Plavix) 75 mg DAILY PO Last administered on 03/22/18at 08 :12; Start 03/01/18 at 09:00 Lisinopril (Prinivil) 5 mg DAILY PO Last administered on 03/22/18 08:12; Start 03/01/18 at 09:00 Aspirin (Children'S Aspirin) 81 mg DAILYWBKFT PO Last administered on at 08:13; Start 03/01/18 at 08:00 Atorvastatin Calcium (Lipitor) 40 mg DAILY PO Last administered on 03/04/18at 08: 25; Start 03/01/18 at 09:00; Stop 03/04/18 at 13:36; Status DC Glucosamine/ Chondroitin (Glucosamine-Chondroitin 500/400mg) 1 cap DAILY PO Last administered on 03/22/18at 08:13; Start 03/01/18 at 09:00 Metoprolol Succinate (Toprol Xl) 50 mg DAILY PO Last administered on 03/22/18at 08:13; Start 03/01/18 at 09:00 Fish Oil (Fish Oil) 1,000 mg DAILY PO Last administered on 03/22/18at 08:12; Start 03/01/18 at 09:00 Multivitamins/ Minerals (I-Andre) 1 tab DAILY PO Last administered on 03/22/18at 08:12; Start 03/01/18 at 09:00 Sertraline HCl (Zoloft) 25 mg DAILY PO Last administered on 03/02/18at 08:45; Start 03/01/18 at 09:00; Stop 03/03/18 at 08:00; Status DC Sertraline HCl (Zoloft) 50 mg DAILY PO Last administered on 03/09/18at 09:33; Start 03/03/18 at 09:00; Stop 03/09/18 at 10:49; Status DC Quetiapine Fumarate (SEROquel) 12.5 mg BID@0900,1300 PO Last administered on at 13:24; Start 03/02/18 at 09:00; Stop 03/13/18 at 18:24; Status DC Non-Formulary Medication 1 ea DAILY PO Last administered on 03/22/18at 08:15; Start 03/05/18 at 09:00 Sertraline HCl (Zoloft) 75 mg DAILY PO Last administered on 03/12/18at 08:14; Start 03/10/18 at 09:00; Stop 03/12/18 at 09:30; Status DC Sertraline HCl (Zoloft) 100 mg DAILY PO Last administered on 03/22/18at 08:13; Start 03/13/18 at 09:00 Quetiapine Fumarate (SEROquel) 12.5 mg 1300 PO Last administered on 03/22/18at 12:23; Start 03/14/18 at 13:00; Stop 03/22/18 at 18:33; Status DC Quetiapine Fumarate (SEROquel) 25 mg DAILY PO Last administered on 03/22/18at 08 :14; Start 03/14/18 at 09:00 Bupropion HCl (Wellbutrin Xl) 150 mg DAILY PO Last administered on 03/22/18at 08 :13; Start 03/17/18 at 09:00 Quetiapine Fumarate (SEROquel) 25 mg DAILY@1300 PO ; Start 03/23/18 at 13:00 Active Scripts Active Reported Lisinopril 5 Mg Tablet 5 Mg PO DAILY [id number] (Calcium Carbonate) 500 Mg Tablet 500 Mg PO DAILY Glucosamine Chondroitin Caplet (Gluc Emanuel Dipo Ch/Bg Emanuel/C/Sushant) 1 Each Tablet 1 Each PO DAILY Multivitamins (Multivitamin) 1 Each Tablet 1 Each PO [place] 3 Fish Oil Softgel ([place]-3 Fatty Acids/Fish Oil) 1 Each Capsule. 1 Each PO DAILY Aspirin 81 Mg Tab.chew 81 Mg PO DAILY Lipitor (Atorvastatin Calcium) 40 Mg Tablet 40 Mg PO DAILY Plavix (Clopidogrel Bisulfate) 75 Mg Tablet 75 Mg PO DAILY Metoprolol Succinate ( Xl ) (Metoprolol Succinate) 50 Mg Tab.er.24h 50 Mg PO DAILY I have reviewed the current psychotropics carefully including drug interactions. Risk benefit ratio favors no change other than as noted in my dictated progress note. Diagnosis: Problems: (1) Anxiety disorder (2) Impulse control disorder (3) Mild cognitive impairment (4) Major depressive disorder, recurrent episode DAVY CISNEROS MD Mar 22, 2018 20:12
--- NOTE | 2018-03-22 20:13 | PDOC ---
Exam Note: Harinder Note: Please also refer to the separate dictated note~for this date of service dictated separately.~Patient seen individually. Discussed the patient with Nursing staff reviewed the chart.~Reviewed interim history and current functioning. Reviewed vital signs,~Labs/ Radiology~and current medications noted below. Continue current treatment with the changes noted in the dictated addendum note Assessment: Vital Signs: Vital Signs Date Time Temp Pulse Resp B/P (MAP) Pulse Ox O2 Delivery O2 Flow Rate FiO2 03/22/18 15:58 98.3 49 16 91/50 (64) 97 Room Air I&O Intake and Output 03/22/18 07:00 Intake Total 1020 ml Balance 1020 ml Intake Oral 1020 ml Current Medications: Meds: Current Medications Olanzapine (ZyPREXA ZYDIS) 1.25 mg PRN Q2HR PRN PO PSYCHOSIS Last administered on 03/16/18at 08:08; Start 02/28/18 at 12:00 Acetaminophen (Tylenol) 650 mg PRN Q6HRS PRN PO PAIN / TEMP; Start 02/28/18 at 13:15 Multi-Ingredient Ointment (Analgesic [place]) 1 sophia PRN QID PRN TP MUSCLE PAIN; Start 02/28/18 at 13:15 Al Hydroxide/Mg Hydroxide (Mylanta Plus Xs) 15 ml PRN AFTMEALHC PRN PO DYSPEPSIA; Start 02/28/18 at 13:15 Magnesium Hydroxide (Milk Of Magnesia) 2,400 mg PRN QHS PRN PO CONSTIPATION; Start 02/28/18 at 13:15 Calcium Carbonate/ Glycine (Oscal) 500 mg DAILY PO Last administered on at 08:13; Start 03/01/18 at 09:00 Clopidogrel Bisulfate (Plavix) 75 mg DAILY PO Last administered on 03/22/18at 08 :12; Start 03/01/18 at 09:00 Lisinopril (Prinivil) 5 mg DAILY PO Last administered on 03/22/18at 08:12; Start 03/01/18 at 09:00 Aspirin (Children'S Aspirin) 81 mg DAILYWBKFT PO Last administered on at 08:13; Start 03/01/18 at 08:00 Atorvastatin Calcium (Lipitor) 40 mg DAILY PO Last administered on 03/04/18at 08: 25; Start 03/01/18 at 09:00; Stop 03/04/18 at 13:36; Status DC Glucosamine/ Chondroitin (Glucosamine-Chondroitin 500/400mg) 1 cap DAILY PO Last administered on 03/22/18at 08:13; Start 03/01/18 at 09:00 Metoprolol Succinate (Toprol Xl) 50 mg DAILY PO Last administered on 03/22/18at 08:13; Start 03/01/18 at 09:00 Fish Oil (Fish Oil) 1,000 mg DAILY PO Last administered on 03/22/18at 08:12; Start 03/01/18 at 09:00 Multivitamins/ Minerals (I-Andre) 1 tab DAILY PO Last administered on 03/22/18at 08:12; Start 03/01/18 at 09:00 Sertraline HCl (Zoloft) 25 mg DAILY PO Last administered on 03/02/18at 08:45; Start 03/01/18 at 09:00; Stop 03/03/18 at 08:00; Status DC Sertraline HCl (Zoloft) 50 mg DAILY PO Last administered on 03/09/18at 09:33; Start 03/03/18 at 09:00; Stop 03/09/18 at 10:49; Status DC Quetiapine Fumarate (SEROquel) 12.5 mg BID@0900,1300 PO Last administered on at 13:24; Start 03/02/18 at 09:00; Stop 03/13/18 at 18:24; Status DC Non-Formulary Medication 1 ea DAILY PO Last administered on 03/22/18at 08:15; Start 03/05/18 at 09:00 Sertraline HCl (Zoloft) 75 mg DAILY PO Last administered on 03/12/18at 08:14; Start 03/10/18 at 09:00; Stop 03/12/18 at 09:30; Status DC Sertraline HCl (Zoloft) 100 mg DAILY PO Last administered on 03/22/18at 08:13; Start 03/13/18 at 09:00 Quetiapine Fumarate (SEROquel) 12.5 mg 1300 PO Last administered on 03/22/18at 12:23; Start 03/14/18 at 13:00; Stop 03/22/18 at 18:33; Status DC Quetiapine Fumarate (SEROquel) 25 mg DAILY PO Last administered on 03/22/18at 08 :14; Start 03/14/18 at 09:00 Bupropion HCl (Wellbutrin Xl) 150 mg DAILY PO Last administered on 03/22/18at 08 :13; Start 03/17/18 at 09:00 Quetiapine Fumarate (SEROquel) 25 mg DAILY@1300 PO ; Start 03/23/18 at 13:00 Active Scripts Active Reported Lisinopril 5 Mg Tablet 5 Mg PO DAILY [id number] (Calcium Carbonate) 500 Mg Tablet 500 Mg PO DAILY Glucosamine Chondroitin [place] (Gluc Emanuel Dipo Ch/Bg Emanuel/C/Sushant) 1 Each Tablet 1 Each PO DAILY Multivitamins (Multivitamin) 1 Each Tablet 1 Each PO [place] 3 Fish Oil Softgel ([place]-3 Fatty Acids/Fish Oil) 1 Each Capsule.dr 1 Each PO DAILY Aspirin 81 Mg Tab.chew 81 Mg PO DAILY Lipitor (Atorvastatin Calcium) 40 Mg Tablet 40 Mg PO DAILY Plavix (Clopidogrel Bisulfate) 75 Mg Tablet 75 Mg PO DAILY Metoprolol Succinate ( Xl ) (Metoprolol Succinate) 50 Mg Tab.er.24h 50 Mg PO DAILY I have reviewed the current psychotropics carefully including drug interactions. Risk benefit ratio favors no change other than as noted in my dictated progress note. Diagnosis: Problems: (1) Anxiety disorder (2) Impulse control disorder (3) Mild cognitive impairment (4) Major depressive disorder, recurrent episode DAVY CISNEROS MD Mar 22, 2018 20:12
--- NOTE | 2018-03-22 21:00 | PN ---
DATE: 03/21/2018 PSYCHIATRIC PROGRESS NOTE This is a late entry 03/21/2018 covers elements not covered in my initial note. SUBJECTIVE: I met with the patient in the evening. The patient slept 6 hours previous evening, remains somewhat withdrawn, but does come out for meals, goes to the common areas. REVIEW OF SYSTEMS: No CV, , pulmonary, eye, ENT system symptoms on review. MENTAL STATUS EXAM: Oriented to himself and situation. Speech is coherent. He is pleasant, verbal, holding my hand, quite animated, less anxious, less paranoid. No suicidal or homicidal ideation. Attention span short. Language function intact. Mood and affect is improved, short term memory is impaired. IMPRESSION: Unchanged from initial note. PLAN: Continue psychotropics from my initial note. MAN Rafal CISNEROS MD DR: NOREEN/charly JOB#: [id number] / [id number]
[2018-03-23 05:32] VITALS: BP 120/69
[2018-03-23] MEDS: GLUCOSAMINE/CHOND 500/400MG CAPSULE PO SCH (07:30)
[2018-03-23] MEDS: CALCIUM CARBONATE 500 MG TABLET PO SCH (07:30)
[2018-03-23] MEDS: ROSUVASTATIN 20 MG PO SCH (07:30)
[2018-03-23] MEDS: ASPIRIN 81 MG TAB.CHEW PO SCH (07:30)
[2018-03-23] MEDS: buPROPion XL 150 MG TAB.ER.24H PO SCH (07:31)
[2018-03-23] MEDS: SERTRALINE 100 MG TABLET. PO SCH (07:31)
[2018-03-23] MEDS: QUEtiapine 25 MG TABLET. PO SCH ×2 (07:31→11:54)
[2018-03-23] MEDS: METOPROLOL SUCC 24HR ER 50 MG TAB.ER.24H. PO SCH (07:31)
[2018-03-23] MEDS: OMEGA-3 FATTY ACIDS/FISH OIL 1,000 MG CAPSULE. PO SCH (07:31)
[2018-03-23] MEDS: MULTIVITAMIN I-VITE TABLET. PO SCH (07:31)
[2018-03-23] MEDS: CLOPIDOGREL BISULFATE 75 MG TABLET PO SCH (07:31)
[2018-03-23] MEDS: LISINOPRIL 5 MG TABLET. PO SCH (07:32)
--- NOTE | 2018-03-23 08:56 | NUR ---
Behavior Intervention Response and Plan: BIRP Note: Behavior: Assumed Care of patient, patient located in Hallway at shift change. Patient exhibited the following behavior Interactive, Calm, Appropriate. Brief assessment on rounds of vital signs, medication needs, lab studies, and pain. Treatment plan problems . Intervention: Patient assessed and the following interventions initiated safety checks 15 Minute Checks Cognitive Assessment , Head to toe Assessment , Medications. Response: After interactions and interventions patient responded in the following manner, Cooperative , Interactive ,Calm, disorganized. Continue to assess behaviors and condition will continue to monitor throughout the shift as needed. Patient educated on ADL's, and hand hygiene. PT had some nausea this am when eating sausage, he reported that it hurt his tummy. Plan: Continue to monitor Master Treatment Plan for patient's progress toward short term goals of Decreased Agitation, Decreased Anxiety, oil heaterman goals to return to previous living setting vs placement. Continue to assess patient for changes in above assessment. Monitor for medication needs, pain, and safety concerns. Hourly rounding performed to ensure safe environment. Selene Caceres [employer]ISH[employer] CMSRN IN-
[2018-03-23 16:02] VITALS: BP 113/54
--- NOTE | 2018-03-23 20:20 | NUR ---
Nursing note: Assumed care of pt in the dayroom sitting quietly watching tv. He was compliant, calm, and pleasant. He had no meds.
--- NOTE | 2018-03-23 20:52 | PDOC ---
Exam Note: Harinder Note: Please also refer to the separate dictated note~for this date of service dictated separately.~Patient seen individually. Discussed the patient with Nursing staff reviewed the chart.~Reviewed interim history and current functioning. Reviewed vital signs,~Labs/ Radiology~and current medications noted below. Continue current treatment with the changes noted in the dictated addendum note Assessment: Vital Signs: Vital Signs Date Time Temp Pulse Resp B/P (MAP) Pulse Ox O2 Delivery O2 Flow Rate FiO2 03/23/18 16:02 98.1 53 17 113/54 (73) 98 Room Air I&O Intake and Output 03/23/18 06:59 Intake Total 1080 ml Balance 1080 ml Intake Oral 1080 ml Current Medications: Meds: Current Medications Olanzapine (ZyPREXA ZYDIS) 1.25 mg PRN Q2HR PRN PO PSYCHOSIS Last administered on 03/16/18at 08:08; Start 02/28/18 at 12:00 Acetaminophen (Tylenol) 650 mg PRN Q6HRS PRN PO PAIN / TEMP; Start 02/28/18 at 13:15 Multi-Ingredient Ointment (Analgesic [place]) 1 sophia PRN QID PRN TP MUSCLE PAIN; Start 02/28/18 at 13:15 Al Hydroxide/Mg Hydroxide (Mylanta Plus Xs) 15 ml PRN AFTMEALHC PRN PO DYSPEPSIA; Start 02/28/18 at 13:15 Magnesium Hydroxide (Milk Of Magnesia) 2,400 mg PRN QHS PRN PO CONSTIPATION; Start 02/28/18 at 13:15 Calcium Carbonate/ Glycine (Oscal) 500 mg DAILY PO Last administered on at 07:30; Start 03/01/18 at 09:00 Clopidogrel Bisulfate (Plavix) 75 mg DAILY PO Last administered on 03/23/18at 07 :31; Start 03/01/18 at 09:00 Lisinopril (Prinivil) 5 mg DAILY PO Last administered on 03/23/18at 07:32; Start 03/01/18 at 09:00 Aspirin (Children'S Aspirin) 81 mg DAILYWBKFT PO Last administered on at 07:30; Start 03/01/18 at 08:00 Atorvastatin Calcium (Lipitor) 40 mg DAILY PO Last administered on 03/04/18at 08: 25; Start 03/01/18 at 09:00; Stop 03/04/18 at 13:36; Status DC Glucosamine/ Chondroitin (Glucosamine-Chondroitin 500/400mg) 1 cap DAILY PO Last administered on 03/23/18at 07:30; Start 03/01/18 at 09:00 Metoprolol Succinate (Toprol Xl) 50 mg DAILY PO Last administered on 03/23/18 07:31; Start 03/01/18 at 09:00 Fish Oil (Fish Oil) 1,000 mg DAILY PO Last administered on 03/23/18at 07:31; Start 03/01/18 at 09:00 Multivitamins/ Minerals (I-Andre) 1 tab DAILY PO Last administered on 03/23/18 07:31; Start 03/01/18 at 09:00 Sertraline HCl (Zoloft) 25 mg DAILY PO Last administered on 03/02/18at 08:45; Start 03/01/18 at 09:00; Stop 03/03/18 at 08:00; Status DC Sertraline HCl (Zoloft) 50 mg DAILY PO Last administered on 03/09/18at 09:33; Start 03/03/18 at 09:00; Stop 03/09/18 at 10:49; Status DC Quetiapine Fumarate (SEROquel) 12.5 mg BID@0900,1300 PO Last administered on at 13:24; Start 03/02/18 at 09:00; Stop 03/13/18 at 18:24; Status DC Non-Formulary Medication 1 ea DAILY PO Last administered on 03/23/18at 07:30; Start 03/05/18 at 09:00 Sertraline HCl (Zoloft) 75 mg DAILY PO Last administered on 03/12/18at 08:14; Start 03/10/18 at 09:00; Stop 03/12/18 at 09:30; Status DC Sertraline HCl (Zoloft) 100 mg DAILY PO Last administered on 03/23/18at 07:31; Start 03/13/18 at 09:00 Quetiapine Fumarate (SEROquel) 12.5 mg 1300 PO Last administered on 03/22/18at 12:23; Start 03/14/18 at 13:00; Stop 03/22/18 at 18:33; Status DC Quetiapine Fumarate (SEROquel) 25 mg DAILY PO Last administered on 03/23/18at 07 :31; Start 03/14/18 at 09:00 Bupropion HCl (Wellbutrin Xl) 150 mg DAILY PO Last administered on 03/23/18at 07 :31; Start 03/17/18 at 09:00 Quetiapine Fumarate (SEROquel) 25 mg DAILY@1300 PO Last administered on at 11:54; Start 03/23/18 at 13:00 Active Scripts Active Reported Lisinopril 5 Mg Tablet 5 Mg PO DAILY [id number] (Calcium Carbonate) 500 Mg Tablet 500 Mg PO DAILY Glucosamine Chondroitin Caplet (Gluc Emanuel Dipo Ch/Bg Emanuel/C/Sushant) 1 Each Tablet 1 Each PO DAILY Multivitamins (Multivitamin) 1 Each Tablet 1 Each PO [place] 3 Fish Oil Softgel ([place]-3 Fatty Acids/Fish Oil) 1 Each Capsule.dr 1 Each PO DAILY Aspirin 81 Mg Tab.chew 81 Mg PO DAILY Lipitor (Atorvastatin Calcium) 40 Mg Tablet 40 Mg PO DAILY Plavix (Clopidogrel Bisulfate) 75 Mg Tablet 75 Mg PO DAILY Metoprolol Succinate ( Xl ) (Metoprolol Succinate) 50 Mg Tab.er.24h 50 Mg PO DAILY I have reviewed the current psychotropics carefully including drug interactions. Risk benefit ratio favors no change other than as noted in my dictated progress note. Diagnosis: Problems: (1) Anxiety disorder (2) Impulse control disorder (3) Mild cognitive impairment (4) Major depressive disorder, recurrent episode DAVY CISNEROS MD Mar 23, 2018 20:52
[2018-03-24 05:52] VITALS: BP 12/61
[2018-03-24 07:53] VITALS: BP 120/61
[2018-03-24] MEDS: MULTIVITAMIN I-VITE TABLET. PO SCH (08:33)
[2018-03-24] MEDS: buPROPion XL 150 MG TAB.ER.24H PO SCH (08:34)
[2018-03-24] MEDS: ASPIRIN 81 MG TAB.CHEW PO SCH (08:34)
[2018-03-24] MEDS: CALCIUM CARBONATE 500 MG TABLET PO SCH (08:34)
[2018-03-24] MEDS: CLOPIDOGREL BISULFATE 75 MG TABLET PO SCH (08:34)
[2018-03-24] MEDS: GLUCOSAMINE/CHOND 500/400MG CAPSULE PO SCH (08:34)
[2018-03-24] MEDS: OMEGA-3 FATTY ACIDS/FISH OIL 1,000 MG CAPSULE. PO SCH (08:34)
[2018-03-24] MEDS: SERTRALINE 100 MG TABLET. PO SCH (08:34)
[2018-03-24] MEDS: QUEtiapine 25 MG TABLET. PO SCH ×2 (08:34→12:47)
[2018-03-24 08:38] VITALS: BP 112/49
[2018-03-24] MEDS: ROSUVASTATIN 20 MG PO SCH (08:38)
[2018-03-24] MEDS: METOPROLOL SUCC 24HR ER 50 MG TAB.ER.24H. PO SCH (08:39)
[2018-03-24] MEDS: LISINOPRIL 5 MG TABLET. PO SCH (08:39)
--- NOTE | 2018-03-24 10:18 | NUR ---
Behavior Intervention Response and Plan: BIRP Note: Behavior: Assumed Care of patient, patient located in Hallway at shift change. Patient exhibited the following behavior Disorganized, Interactive, Compliant. Brief assessment on rounds of vital signs, medication needs, lab studies, and pain. Treatment plan problems 1-2. Intervention: Patient assessed and the following interventions initiated safety checks 15 Minute Checks Cognitive Assessment , Head to toe Assessment , Medications. Response: After interactions and interventions patient responded in the following manner, Disorganized , Calm ,Cooperative. Continue to assess behaviors and condition will continue to monitor throughout the shift as needed. Patient educated on ADL's, and hand hygiene. 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 Continue to assess patient for changes in above assessment. Monitor for medication needs, pain, and safety concerns. Hourly rounding performed to ensure safe environment.
[2018-03-24 15:55] VITALS: BP 108/57
--- NOTE | 2018-03-24 19:59 | PDOC ---
Exam Note: Harinder Note: Please also refer to the separate dictated note~for this date of service dictated separately.~Patient seen individually. Discussed the patient with Nursing staff reviewed the chart.~Reviewed interim history and current functioning. Reviewed vital signs,~Labs/ Radiology~and current medications noted below. Continue current treatment with the changes noted in the dictated addendum note Assessment: Vital Signs: Vital Signs Date Time Temp Pulse Resp B/P (MAP) Pulse Ox O2 Delivery O2 Flow Rate FiO2 03/24/18 15:55 98.1 60 16 108/57 (74) 98 03/23/18 16:02 Room Air I&O Intake and Output 03/24/18 06:59 Intake Total 1020 ml Balance 1020 ml Intake Oral 1020 ml Current Medications: Meds: Current Medications Olanzapine (ZyPREXA ZYDIS) 1.25 mg PRN Q2HR PRN PO PSYCHOSIS Last administered on 03/16/18at 08:08; Start 02/28/18 at 12:00 Acetaminophen (Tylenol) 650 mg PRN Q6HRS PRN PO PAIN / TEMP; Start 02/28/18 at 13:15 Multi-Ingredient Ointment (Analgesic [place]) 1 sophia PRN QID PRN TP MUSCLE PAIN; Start 02/28/18 at 13:15 Al Hydroxide/Mg Hydroxide (Mylanta Plus Xs) 15 ml PRN AFTMEALHC PRN PO DYSPEPSIA; Start 02/28/18 at 13:15 Magnesium Hydroxide (Milk Of Magnesia) 2,400 mg PRN QHS PRN PO CONSTIPATION; Start 02/28/18 at 13:15 Calcium Carbonate/ Glycine (Oscal) 500 mg DAILY PO Last administered on at 08:34; Start 03/01/18 at 09:00 Clopidogrel Bisulfate (Plavix) 75 mg DAILY PO Last administered on 03/24/18at 08 :34; Start 03/01/18 at 09:00 Lisinopril (Prinivil) 5 mg DAILY PO Last administered on 03/23/18at 07:32; Start 03/01/18 at 09:00 Aspirin (Children'S Aspirin) 81 mg DAILYWBKFT PO Last administered on at 08:34; Start 03/01/18 at 08:00 Atorvastatin Calcium (Lipitor) 40 mg DAILY PO Last administered on 03/04/18 08: 25; Start 03/01/18 at 09:00; Stop 03/04/18 at 13:36; Status DC Glucosamine/ Chondroitin (Glucosamine-Chondroitin 500/400mg) 1 cap DAILY PO Last administered on 03/24/18 08:34; Start 03/01/18 at 09:00 Metoprolol Succinate (Toprol Xl) 50 mg DAILY PO Last administered on 03/23/18 07:31; Start 03/01/18 at 09:00 Fish Oil (Fish Oil) 1,000 mg DAILY PO Last administered on 03/24/18 08:34; Start 03/01/18 at 09:00 Multivitamins/ Minerals (I-Andre) 1 tab DAILY PO Last administered on 03/24/18 08:33; Start 03/01/18 at 09:00 Sertraline HCl (Zoloft) 25 mg DAILY PO Last administered on 03/02/18at 08:45; Start 03/01/18 at 09:00; Stop 03/03/18 at 08:00; Status DC Sertraline HCl (Zoloft) 50 mg DAILY PO Last administered on 03/09/18at 09:33; Start 03/03/18 at 09:00; Stop 03/09/18 at 10:49; Status DC Quetiapine Fumarate (SEROquel) 12.5 mg BID@0900,1300 PO Last administered on at 13:24; Start 03/02/18 at 09:00; Stop 03/13/18 at 18:24; Status DC Non-Formulary Medication 1 ea DAILY PO Last administered on 03/24/18at 08:38; Start 03/05/18 at 09:00 Sertraline HCl (Zoloft) 75 mg DAILY PO Last administered on 03/12/18at 08:14; Start 03/10/18 at 09:00; Stop 03/12/18 at 09:30; Status DC Sertraline HCl (Zoloft) 100 mg DAILY PO Last administered on 03/24/18at 08:34; Start 03/13/18 at 09:00 Quetiapine Fumarate (SEROquel) 12.5 mg 1300 PO Last administered on 03/22/18at 12:23; Start 03/14/18 at 13:00; Stop 03/22/18 at 18:33; Status DC Quetiapine Fumarate (SEROquel) 25 mg DAILY PO Last administered on 03/24/18at 08 :34; Start 03/14/18 at 09:00 Bupropion HCl (Wellbutrin Xl) 150 mg DAILY PO Last administered on 03/24/18at 08 :34; Start 03/17/18 at 09:00 Quetiapine Fumarate (SEROquel) 25 mg DAILY@1300 PO Last administered on at 12:47; Start 03/23/18 at 13:00 Active Scripts Active Reported Lisinopril 5 Mg Tablet 5 Mg PO DAILY [id number] (Calcium Carbonate) 500 Mg Tablet 500 Mg PO DAILY Glucosamine Chondroitin Caplet (Gluc Emanuel Dipo Ch/Bg Emanuel/C/Sushant) 1 Each Tablet 1 Each PO DAILY Multivitamins (Multivitamin) 1 Each Tablet 1 Each PO [place] 3 Fish Oil Softgel ([place]-3 Fatty Acids/Fish Oil) 1 Each Capsule.dr 1 Each PO DAILY Aspirin 81 Mg Tab.chew 81 Mg PO DAILY Lipitor (Atorvastatin Calcium) 40 Mg Tablet 40 Mg PO DAILY Plavix (Clopidogrel Bisulfate) 75 Mg Tablet 75 Mg PO DAILY Metoprolol Succinate ( Xl ) (Metoprolol Succinate) 50 Mg Tab.er.24h 50 Mg PO DAILY I have reviewed the current psychotropics carefully including drug interactions. Risk benefit ratio favors no change other than as noted in my dictated progress note. Diagnosis: Problems: (1) Anxiety disorder (2) Impulse control disorder (3) Mild cognitive impairment (4) Major depressive disorder, recurrent episode DAVY CISNEROS MD Mar 24, 2018 19:59
--- NOTE | 2018-03-24 20:00 | NUR ---
Behavior Intervention Response and Plan: BIRP Note: Behavior: Assumed Care of patient, patient located in Day Room at shift change. Patient exhibited the following behavior Calm, Compliant, Cooperative. Brief assessment on rounds of vital signs, medication needs, lab studies, and pain. Treatment plan problems . Intervention: Patient assessed and the following interventions initiated safety checks 15 Minute Checks Cognitive Assessment , Head to toe Assessment , Medications. Response: After interactions and interventions patient responded in the following manner, Withdrawn , Calm ,Cooperative. Continue to assess behaviors and condition will continue to monitor throughout the shift as needed. Patient educated on ADL's, and hand hygiene. Plan: Continue to monitor Master Treatment Plan for patient's progress toward short term goals of Decreased Anxiety, Decreased Agitation, usp goals to return to previous living setting vs placement. Continue to assess patient for changes in above assessment. Monitor for medication needs, pain, and safety concerns. Hourly rounding performed to ensure safe environment.
--- NOTE | 2018-03-24 23:57 | PN ---
DATE: 03/23/2018 PSYCHIATRIC PROGRESS NOTE This is a late entry 03/23/2018 covers elements not covered in my initial note. SUBJECTIVE: I met with the patient in the evening, staffed at a treatment team meeting with the entire team in the morning. At treatment team meeting reviewed the patient's history, diagnosis, discharge plans at some length. Appetite 70%, slept 6-3/4 hours, confused, but cooperative. No aggression. REVIEW OF SYSTEMS: No CV, , pulmonary, eye, ENT system symptoms on review. Reliability varies. MENTAL STATUS EXAM: Oriented to himself at times situation. Speech has some latency, coherent. Abstraction fair, computation impaired, language function intact. Memory is impaired. No active suicidal or homicidal ideation. IMPRESSION: Unchanged from initial note. PLAN: Continue psychotropics from my initial note. MAN Rafal CISNEROS MD DR: NOREEN/charly JOB#: [id number] / [id number]
--- NOTE | 2018-03-24 23:57 | PN ---
DATE: 03/22/2018 This late entry, 03/22/2018, covers the elements not covered in my initial note. SUBJECTIVE: I met with the patient evening of 03/22/2018. The patient slept 5-1/2 hours. He has been anxious, restless, trying to look for the elevator for the building wanting to leave. At one point, he lunged at a nursing staff because of agitation. This is unusual for him. REVIEW OF SYSTEMS: No CV, , pulmonary, eye, ENT system symptoms on review. Reliability poor. MENTAL STATUS EXAM: Oriented to himself. Insight, judgment, recent and remote memory, attention, concentration, fund of knowledge poor, consistent with his diagnosis from initial note. PLAN: Increase the 1 after noon Seroquel from 12.5 mg to 25 mg. Continue rest unchanged from initial note. This added Seroquel should help with some of his impulse control and paranoia. DAVY CISNEROS MD DR: NOREEN/charly JOB#: [id number] / [id number]
[2018-03-25 05:55] VITALS: BP 141/71
[2018-03-25] MEDS: OMEGA-3 FATTY ACIDS/FISH OIL 1,000 MG CAPSULE. PO SCH (08:25)
[2018-03-25] MEDS: CLOPIDOGREL BISULFATE 75 MG TABLET PO SCH (08:25)
[2018-03-25] MEDS: MULTIVITAMIN I-VITE TABLET. PO SCH (08:25)
[2018-03-25] MEDS: ASPIRIN 81 MG TAB.CHEW PO SCH (08:25)
[2018-03-25] MEDS: SERTRALINE 100 MG TABLET. PO SCH (08:25)
[2018-03-25] MEDS: GLUCOSAMINE/CHOND 500/400MG CAPSULE PO SCH (08:25)
[2018-03-25] MEDS: buPROPion XL 150 MG TAB.ER.24H PO SCH (08:26)
[2018-03-25] MEDS: METOPROLOL SUCC 24HR ER 50 MG TAB.ER.24H. PO SCH (08:26)
[2018-03-25] MEDS: LISINOPRIL 5 MG TABLET. PO SCH (08:26)
[2018-03-25] MEDS: CALCIUM CARBONATE 500 MG TABLET PO SCH (08:26)
[2018-03-25] MEDS: QUEtiapine 25 MG TABLET. PO SCH ×2 (08:26→12:22)
[2018-03-25] MEDS: ROSUVASTATIN 20 MG PO SCH (08:27)
--- NOTE | 2018-03-25 10:20 | NUR ---
Behavior Intervention Response and Plan: BIRP Note: Behavior: Assumed Care of patient, patient located in Dining Room at shift change. Patient exhibited the following behavior Calm, Appropriate, Social. Brief assessment on rounds of vital signs, medication needs, lab studies, and pain. Treatment plan problems 1-2. Intervention: Patient assessed and the following interventions initiated safety checks 15 Minute Checks Cognitive Assessment , Head to toe Assessment , Medications. Response: After interactions and interventions patient responded in the following manner, Calm , Appropriate ,Cooperative. Continue to assess behaviors and condition will continue to monitor throughout the shift as needed. Patient educated on ADL's, and hand hygiene. 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 Continue to assess patient for changes in above assessment. Monitor for medication needs, pain, and safety concerns. Hourly rounding performed to ensure safe environment.
[2018-03-25 16:14] VITALS: BP 98/57
--- NOTE | 2018-03-25 22:27 | PDOC ---
Exam Note: Harinder Note: Please also refer to the separate dictated note~for this date of service dictated separately.~Patient seen individually. Discussed the patient with Nursing staff reviewed the chart.~Reviewed interim history and current functioning. Reviewed vital signs,~Labs/ Radiology~and current medications noted below. Continue current treatment with the changes noted in the dictated addendum note Assessment: Vital Signs: Vital Signs Date Time Temp Pulse Resp B/P (MAP) Pulse Ox O2 Delivery O2 Flow Rate FiO2 03/25/18 16:14 98.2 55 17 98/57 (71) 97 03/23/18 16:02 Room Air I&O Intake and Output 03/25/18 06:59 Intake Total 1080 ml Balance 1080 ml Intake Oral 1080 ml Current Medications: Meds: Current Medications Olanzapine (ZyPREXA ZYDIS) 1.25 mg PRN Q2HR PRN PO PSYCHOSIS Last administered on 03/16/18at 08:08; Start 02/28/18 at 12:00 Acetaminophen (Tylenol) 650 mg PRN Q6HRS PRN PO PAIN / TEMP; Start 02/28/18 at 13:15 Multi-Ingredient Ointment (Analgesic [place]) 1 sophia PRN QID PRN TP MUSCLE PAIN; Start 02/28/18 at 13:15 Al Hydroxide/Mg Hydroxide (Mylanta Plus Xs) 15 ml PRN AFTMEALHC PRN PO DYSPEPSIA; Start 02/28/18 at 13:15 Magnesium Hydroxide (Milk Of Magnesia) 2,400 mg PRN QHS PRN PO CONSTIPATION; Start 02/28/18 at 13:15 Calcium Carbonate/ Glycine (Oscal) 500 mg DAILY PO Last administered on 08:26; Start 03/01/18 at 09:00 Clopidogrel Bisulfate (Plavix) 75 mg DAILY PO Last administered on 03/25/18 08 :25; Start 03/01/18 at 09:00 Lisinopril (Prinivil) 5 mg DAILY PO Last administered on 03/25/18 08:26; Start 03/01/18 at 09:00 Aspirin (Children'S Aspirin) 81 mg DAILYWBKFT PO Last administered on 08:25; Start 03/01/18 at 08:00 Atorvastatin Calcium (Lipitor) 40 mg DAILY PO Last administered on 03/04/18at 08: 25; Start 03/01/18 at 09:00; Stop 03/04/18 at 13:36; Status DC Glucosamine/ Chondroitin (Glucosamine-Chondroitin 500/400mg) 1 cap DAILY PO Last administered on 03/25/18 08:25; Start 03/01/18 at 09:00 Metoprolol Succinate (Toprol Xl) 50 mg DAILY PO Last administered on 03/25/18 08:26; Start 03/01/18 at 09:00 Fish Oil (Fish Oil) 1,000 mg DAILY PO Last administered on 03/25/18 08:25; Start 03/01/18 at 09:00 Multivitamins/ Minerals (I-Andre) 1 tab DAILY PO Last administered on 03/25/18 08:25; Start 03/01/18 at 09:00 Sertraline HCl (Zoloft) 25 mg DAILY PO Last administered on 03/02/18at 08:45; Start 03/01/18 at 09:00; Stop 03/03/18 at 08:00; Status DC Sertraline HCl (Zoloft) 50 mg DAILY PO Last administered on 03/09/18at 09:33; Start 03/03/18 at 09:00; Stop 03/09/18 at 10:49; Status DC Quetiapine Fumarate (SEROquel) 12.5 mg BID@0900,1300 PO Last administered on 13:24; Start 03/02/18 at 09:00; Stop 03/13/18 at 18:24; Status DC Non-Formulary Medication 1 ea DAILY PO Last administered on 03/25/18at 08:27; Start 03/05/18 at 09:00 Sertraline HCl (Zoloft) 75 mg DAILY PO Last administered on 03/12/18at 08:14; Start 03/10/18 at 09:00; Stop 03/12/18 at 09:30; Status DC Sertraline HCl (Zoloft) 100 mg DAILY PO Last administered on 03/25/18 08:25; Start 03/13/18 at 09:00 Quetiapine Fumarate (SEROquel) 12.5 mg 1300 PO Last administered on 03/22/18at 12:23; Start 03/14/18 at 13:00; Stop 03/22/18 at 18:33; Status DC Quetiapine Fumarate (SEROquel) 25 mg DAILY PO Last administered on 03/25/18at 08 :26; Start 03/14/18 at 09:00 Bupropion HCl (Wellbutrin Xl) 150 mg DAILY PO Last administered on 03/25/18at 08 :26; Start 03/17/18 at 09:00 Quetiapine Fumarate (SEROquel) 25 mg DAILY@1300 PO Last administered on at 12:22; Start 03/23/18 at 13:00 Active Scripts Active Reported Lisinopril 5 Mg Tablet 5 Mg PO DAILY [id number] (Calcium Carbonate) 500 Mg Tablet 500 Mg PO DAILY Glucosamine Chondroitin Cap[place] (Gluc Emanuel Dipo Ch/Bg Emanuel/C/Sushant) 1 Each Tablet 1 Each PO DAILY Multivitamins (Multivitamin) 1 Each Tablet 1 Each PO [place] 3 Fish Oil Softgel ([place]-3 Fatty Acids/Fish Oil) 1 Each Capsule.dr 1 Each PO DAILY Aspirin 81 Mg Tab.chew 81 Mg PO DAILY Lipitor (Atorvastatin Calcium) 40 Mg Tablet 40 Mg PO DAILY Plavix (Clopidogrel Bisulfate) 75 Mg Tablet 75 Mg PO DAILY Metoprolol Succinate ( Xl ) (Metoprolol Succinate) 50 Mg Tab.er.24h 50 Mg PO DAILY I have reviewed the current psychotropics carefully including drug interactions. Risk benefit ratio favors no change other than as noted in my dictated progress note. Diagnosis: Problems: (1) Anxiety disorder (2) Impulse control disorder (3) Mild cognitive impairment (4) Major depressive disorder, recurrent episode DAVY CISNEROS MD Mar 25, 2018 22:27
--- NOTE | 2018-03-25 22:36 | NUR ---
Behavior Intervention Response and Plan: BIRP Note: Behavior: Assumed Care of patient, patient located in Day Room at shift change. Patient exhibited the following behavior Interactive, Compliant, Interactive. Brief assessment on rounds of vital signs, medication needs, lab studies, and pain. Treatment plan problems 1-2. Intervention: Patient assessed and the following interventions initiated safety checks 15 Minute Checks Cognitive Assessment , Head to toe Assessment , Medications. Response: After interactions and interventions patient responded in the following manner, Social , Compliant ,Cooperative. Continue to assess behaviors and condition will continue to monitor throughout the shift as needed. Patient educated on ADL's, and hand hygiene. 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 Continue to assess patient for changes in above assessment. Monitor for medication needs, pain, and safety concerns. Hourly rounding performed to ensure safe environment.
[2018-03-26 06:07] VITALS: BP 129/66
[2018-03-26] MEDS: METOPROLOL SUCC 24HR ER 50 MG TAB.ER.24H. PO SCH (09:00)
[2018-03-26 09:07] LABS: BASO # 0.1 x10^3/uL (0.0-0.2); BASO % 1 % (0-3); EOS # 0.1 x10^3/uL (0.0-0.7); EOS % 1 % (0-3); HEMATOCRIT 42.6 % (39.0-53.0); HEMOGLOBIN 14.6 g/dL (13.0-17.5); LYMPH # 0.7 x10^3/uL (1.0-4.8); LYMPH % 8 % (24-48); MEAN CORPUSCULAR HEMOGLOBIN 32 pg (25-35); MEAN CORPUSCULAR HGB CONC 34 g/dL (31-37); MEAN CORPUSCULAR VOLUME 94 fL (79-100); MONO # 0.6 x10^3/uL (0.0-1.1); MONO % 7 % (0-9); NEUT # 7.2 x10^3uL (1.8-7.7); NEUT % 84 % (31-73); PLATELET COUNT 243 x10^3/uL (140-400); RED BLOOD COUNT 4.53 x10^6/uL (4.30-5.70); RED CELL DISTRIBUTION WIDTH 13.6 % (11.5-14.5); WHITE BLOOD COUNT 8.5 x10^3/uL (4.0-11.0)
[2018-03-26] MEDS: ASPIRIN 81 MG TAB.CHEW PO SCH (09:07)
[2018-03-26 09:18] LABS: ALBUMIN 3.6 g/dL (3.4-5.0); ALBUMIN/GLOBULIN RATIO 1.1 (1.0-1.7); CREATININE 1.3 mg/dL (0.7-1.3); GFR 52.6; POTASSIUM 4.3 mmol/L (3.5-5.1); TOTAL BILIRUBIN 0.6 mg/dL (0.2-1.0); TOTAL PROTEIN 6.8 g/dL (6.4-8.2)
[2018-03-26] MEDS: MULTIVITAMIN I-VITE TABLET. PO SCH (09:24)
[2018-03-26] MEDS: GLUCOSAMINE/CHOND 500/400MG CAPSULE PO SCH (09:24)
[2018-03-26] MEDS: OMEGA-3 FATTY ACIDS/FISH OIL 1,000 MG CAPSULE. PO SCH (09:24)
[2018-03-26] MEDS: ROSUVASTATIN 20 MG PO SCH (09:24)
[2018-03-26] MEDS: CALCIUM CARBONATE 500 MG TABLET PO SCH (09:24)
[2018-03-26] MEDS: CLOPIDOGREL BISULFATE 75 MG TABLET PO SCH (09:24)
[2018-03-26] MEDS: QUEtiapine 25 MG TABLET. PO SCH ×2 (09:29→13:18)
[2018-03-26] MEDS: LISINOPRIL 5 MG TABLET. PO SCH (09:29)
[2018-03-26] MEDS: buPROPion XL 150 MG TAB.ER.24H PO SCH (09:30)
[2018-03-26] MEDS: SERTRALINE 100 MG TABLET. PO SCH (09:30)
--- NOTE | 2018-03-26 12:10 | NUR ---
Behavior Intervention Response and Plan: BIRP Note: Behavior: Assumed Care of patient, patient located in patient room at shift change. Patient exhibited the following behavior Interactive, confused, Compliant, Interactive. Brief assessment on rounds of vital signs, medication needs, lab studies, and pain. Treatment plan problems 1-2. Intervention: Patient assessed and the following interventions initiated safety checks 15 Minute Checks Cognitive Assessment , Head to toe Assessment , Medications. Response: After interactions and interventions patient responded in the following manner, Social, Compliant, Cooperative. Continue to assess behaviors and condition will continue to monitor throughout the shift as needed. Patient educated on ADL's, and hand hygiene. Plan: Continue to monitor Master Treatment Plan for patient's progress toward short term goals of Decreased Agitation, Decreased Aggression, detention goals to return to previous living setting vs placement. Continue to assess patient for changes in above assessment. Monitor for medication needs, pain, and safety concerns. Hourly rounding performed to ensure safe environment.
--- NOTE | 2018-03-26 13:16 | NUR ---
Pt is unsteady on his feet in the hallway X 1 when approached by nurse. Nurse assisted pt to dayroom and held 1300 seroquel. Pts gait has been steady all morning.
[2018-03-26 16:20] VITALS: BP 114/56
--- NOTE | 2018-03-26 20:58 | PDOC ---
Exam Note: Harinder Note: Please also refer to the separate dictated note~for this date of service dictated separately.~Patient seen individually. Discussed the patient with Nursing staff reviewed the chart.~Reviewed interim history and current functioning. Reviewed vital signs,~Labs/ Radiology~and current medications noted below. Continue current treatment with the changes noted in the dictated addendum note Assessment: Vital Signs: Vital Signs Date Time Temp Pulse Resp B/P (MAP) Pulse Ox O2 Delivery O2 Flow Rate FiO2 03/26/18 16:20 97.3 55 18 114/56 (75) 98 03/26/18 06:07 Room Air I&O Intake and Output 03/26/18 07:00 Intake Total 1200 ml Balance 1200 ml Intake Oral 1200 ml Labs: Laboratory Tests Test 03/26/18 08:53 White Blood Count 8.5 x10^3/uL (4.0-11.0) Red Blood Count 4.53 x10^6/uL (4.30-5.70) Hemoglobin 14.6 g/dL (13.0-17.5) Hematocrit 42.6 % (39.0-53.0) Mean Corpuscular Volume 94 fL (79-100) Mean Corpuscular Hemoglobin 32 pg (25-35) Mean Corpuscular Hemoglobin Concent 34 g/dL (31-37) Red Cell Distribution Width 13.6 % (11.5-14.5) Platelet Count 243 x10^3/uL (140-400) Neutrophils (%) (Auto) 84 % (31-73) H Lymphocytes (%) (Auto) 8 % (24-48) L Monocytes (%) (Auto) 7 % (0-9) Eosinophils (%) (Auto) 1 % (0-3) Basophils (%) (Auto) 1 % (0-3) Neutrophils # (Auto) 7.2 x10^3uL (1.8-7.7) Lymphocytes # (Auto) 0.7 x10^3/uL (1.0-4.8) L Monocytes # (Auto) 0.6 x10^3/uL (0.0-1.1) Eosinophils # (Auto) 0.1 x10^3/uL (0.0-0.7) Basophils # (Auto) 0.1 x10^3/uL (0.0-0.2) Sodium Level 138 mmol/L (136-145) Potassium Level 4.3 mmol/L (3.5-5.1) Chloride Level 103 mmol/L (98-107) Carbon Dioxide Level 30 mmol/L (21-32) Anion Gap 5 (6-14) L Blood Urea Nitrogen 16 mg/dL (8-26) Creatinine 1.3 mg/dL (0.7-1.3) Estimated GFR (Cockcroft-Gault) 52.6 BUN/Creatinine Ratio 12 (6-20) Glucose Level 112 mg/dL (70-99) H Calcium Level 9.0 mg/dL (8.5-10.1) Total Bilirubin 0.6 mg/dL (0.2-1.0) Aspartate Amino Transferase (AST) 21 U/L (15-37) Alanine Aminotransferase (ALT) 25 U/L (16-63) Alkaline Phosphatase 102 U/L (46-116) Total Protein 6.8 g/dL (6.4-8.2) Albumin 3.6 g/dL (3.4-5.0) Albumin/Globulin Ratio 1.1 (1.0-1.7) Current Medications: Meds: Current Medications Olanzapine (ZyPREXA ZYDIS) 1.25 mg PRN Q2HR PRN PO PSYCHOSIS Last administered on 03/16/18at 08:08; Start 02/28/18 at 12:00 Acetaminophen (Tylenol) 650 mg PRN Q6HRS PRN PO PAIN / TEMP; Start 02/28/18 at 13:15 Multi-Ingredient Ointment (Analgesic [place]) 1 sophia PRN QID PRN TP MUSCLE PAIN; Start 02/28/18 at 13:15 Al Hydroxide/Mg Hydroxide (Mylanta Plus Xs) 15 ml PRN AFTMEALHC PRN PO DYSPEPSIA; Start 02/28/18 at 13:15 Magnesium Hydroxide (Milk Of Magnesia) 2,400 mg PRN QHS PRN PO CONSTIPATION; Start 02/28/18 at 13:15 Calcium Carbonate/ Glycine (Oscal) 500 mg DAILY PO Last administered on at 09:24; Start 03/01/18 at 09:00 Clopidogrel Bisulfate (Plavix) 75 mg DAILY PO Last administered on 03/26/18at 09: 24; Start 03/01/18 at 09:00 Lisinopril (Prinivil) 5 mg DAILY PO Last administered on 03/26/18 09:29; Start 03/01/18 at 09:00 Aspirin (Children'S Aspirin) 81 mg DAILYWBKFT PO Last administered on 03/26/18at 09:07; Start 03/01/18 at 08:00 Atorvastatin Calcium (Lipitor) 40 mg DAILY PO Last administered on 03/04/18at 08: 25; Start 03/01/18 at 09:00; Stop 03/04/18 at 13:36; Status DC Glucosamine/ Chondroitin (Glucosamine-Chondroitin 500/400mg) 1 cap DAILY PO Last administered on 03/26/18 09:24; Start 03/01/18 at 09:00 Metoprolol Succinate (Toprol Xl) 50 mg DAILY PO Last administered on 03/25/18at 08:26; Start 03/01/18 at 09:00 Fish Oil (Fish Oil) 1,000 mg DAILY PO Last administered on 03/26/18at 09:24; Start 03/01/18 at 09:00 Multivitamins/ Minerals (I-Andre) 1 tab DAILY PO Last administered on 03/26/18 09:24; Start 03/01/18 at 09:00 Sertraline HCl (Zoloft) 25 mg DAILY PO Last administered on 03/02/18at 08:45; Start 03/01/18 at 09:00; Stop 03/03/18 at 08:00; Status DC Sertraline HCl (Zoloft) 50 mg DAILY PO Last administered on 03/09/18at 09:33; Start 03/03/18 at 09:00; Stop 03/09/18 at 10:49; Status DC Quetiapine Fumarate (SEROquel) 12.5 mg BID@0900,1300 PO Last administered on at 13:24; Start 03/02/18 at 09:00; Stop 03/13/18 at 18:24; Status DC Non-Formulary Medication 1 ea DAILY PO Last administered on 03/26/18at 09:24; Start 03/05/18 at 09:00 Sertraline HCl (Zoloft) 75 mg DAILY PO Last administered on 03/12/18at 08:14; Start 03/10/18 at 09:00; Stop 03/12/18 at 09:30; Status DC Sertraline HCl (Zoloft) 100 mg DAILY PO Last administered on 03/26/18 09:30; Start 03/13/18 at 09:00 Quetiapine Fumarate (SEROquel) 12.5 mg 1300 PO Last administered on 03/22/18at 12:23; Start 03/14/18 at 13:00; Stop 03/22/18 at 18:33; Status DC Quetiapine Fumarate (SEROquel) 25 mg DAILY PO Last administered on 03/26/18at 09: 29; Start 03/14/18 at 09:00; Stop 03/27/18 at 09:00 Bupropion HCl (Wellbutrin Xl) 150 mg DAILY PO Last administered on 03/26/18at 09: 30; Start 03/17/18 at 09:00 Quetiapine Fumarate (SEROquel) 25 mg DAILY@1300 PO Last administered on at 12:22; Start 03/23/18 at 13:00 Quetiapine Fumarate (SEROquel) 12.5 mg DAILY PO ; Start 03/27/18 at 09:00 Active Scripts Active Reported Lisinopril 5 Mg Tablet 5 Mg PO DAILY [id number] (Calcium Carbonate) 500 Mg Tablet 500 Mg PO DAILY Glucosamine Chondroitin Caplet (Gluc Emanuel Dipo Ch/Bg Emanuel/C/Sushant) 1 Each Tablet 1 Each PO DAILY Multivitamins (Multivitamin) 1 Each Tablet 1 Each PO [place] 3 Fish Oil Softgel ([place]strong-3 Fatty Acids/Fish Oil) 1 Each Capsule. 1 Each PO DAILY Aspirin 81 Mg Tab.chew 81 Mg PO DAILY Lipitor (Atorvastatin Calcium) 40 Mg Tablet 40 Mg PO DAILY Plavix (Clopidogrel Bisulfate) 75 Mg Tablet 75 Mg PO DAILY Metoprolol Succinate ( Xl ) (Metoprolol Succinate) 50 Mg Tab.er.24h 50 Mg PO DAILY I have reviewed the current psychotropics carefully including drug interactions. Risk benefit ratio favors no change other than as noted in my dictated progress note. Diagnosis: Problems: (1) Anxiety disorder (2) Impulse control disorder (3) Mild cognitive impairment (4) Major depressive disorder, recurrent episode DAVY CISNEROS MD Mar 26, 2018 20:58
--- NOTE | 2018-03-26 23:36 | NUR ---
At shift change patient was sitting in the dayroom watching a movie. On assessment patient is withdrawn to his room. Patient was found on his hands and knees looking under the bed and chair in the room, frustrated. When asked if i could help find something, patient states he is looking for his sandal but that closet is always locked. Patient assisted to his feet with minimal assistance, unlocked his closet and handed him his sandals. Patient is alert and oriented x4, but forgetful at times. Patient calm and pleasant with assessment. Patient gait has been unsteady today, orders received to decrease AM Seroquel. Patient is currently laying in bed at this time.
--- NOTE | 2018-03-27 00:08 | PN ---
DATE: 03/24/2018 PSYCHIATRIC PROGRESS NOTE This is a late entry, date of service 03/24/2018, covers elements not covered in my initial note. SUBJECTIVE: I met with the patient evening of 03/24/2018. The patient slept 7-1/2 hours previous evening. There has been somewhat forgetful, more confused in the evening, fixated that someone is stealing his belongings. REVIEW OF SYSTEMS: No CV, , pulmonary, eye, ENT system symptoms on review. Reliability varies. MENTAL STATUS EXAM: Oriented to himself and situation. Speech is moderate latency, often responses monosyllabic. Abstraction fair, computation impaired, language function intact, attention span short. Mood and affect somewhat withdrawn. LABORATORY DATA: Reviewed. IMPRESSION: Unchanged from initial note. PLAN: No change from initial note. MAN Rafal CISNEROS MD DR: NOREEN/charly JOB#: [id number] / [id number]
--- NOTE | 2018-03-27 00:09 | PN ---
DATE: 03/25/2018 PSYCHIATRIC PROGRESS NOTE This note covers elements not covered in my initial note 03/25/2018. SUBJECTIVE: I met with the patient in the evening. The patient slept 6 hours previous evening, otherwise somewhat forgetful with short-term memory deficits, but no CV, , pulmonary, eye, ENT system symptoms on review. MENTAL STATUS EXAM: Oriented to himself and situation. Speech moderate latency, often responses monosyllabic. Abstraction fair, computation impaired, language function intact. Mood and affect somewhat withdrawn at times, but less irritable, more confused in the evening. LABORATORY DATA: Reviewed. IMPRESSION: Unchanged from initial note. PLAN: No change from initial note. DAVY CISNEROS MD DR: NOREEN/charly JOB#: [id number] / [id number]
--- NOTE | 2018-03-27 00:12 | PN ---
DATE: 03/26/2018 PSYCHIATRIC PROGRESS NOTE This note covers elements not covered in my initial note 03/26/2018. SUBJECTIVE: I met with the patient evening of 03/26/2018. The patient slept 6 hours previous evening. Gait is somewhat unsteady in the morning and 1300. Seroquel was held. REVIEW OF SYSTEMS: No CV, , pulmonary, eye, ENT system symptoms on review. MENTAL STATUS EXAM: Oriented to himself and situations. Speech has some latency, coherent, often responses monosyllabic. Abstraction fair, computation impaired, language function intact, attention span short. Mood and affect still withdrawn, but improved. LABORATORY DATA: Reviewed. IMPRESSION: Unchanged from initial note. PLAN: Reduce 9:00 a.m. Seroquel from 25 mg to 12.5 mg given his unsteady gait. Rest unchanged. MAN SandyBrittany CISNEROS MD DR: NOREEN/charly JOB#: [id number] / [id number]
[2018-03-27 06:20] VITALS: BP 143/69
[2018-03-27] MEDS: QUEtiapine 25 MG TABLET. PO SCH ×3 (09:00→13:25)
[2018-03-27] MEDS: ASPIRIN 81 MG TAB.CHEW PO SCH (09:07)
[2018-03-27] MEDS: MULTIVITAMIN I-VITE TABLET. PO SCH (09:08)
[2018-03-27] MEDS: GLUCOSAMINE/CHOND 500/400MG CAPSULE PO SCH (09:08)
[2018-03-27] MEDS: ROSUVASTATIN 20 MG PO SCH (09:08)
[2018-03-27] MEDS: OMEGA-3 FATTY ACIDS/FISH OIL 1,000 MG CAPSULE. PO SCH (09:08)
[2018-03-27] MEDS: CLOPIDOGREL BISULFATE 75 MG TABLET PO SCH (09:09)
[2018-03-27] MEDS: CALCIUM CARBONATE 500 MG TABLET PO SCH (09:09)
[2018-03-27] MEDS: LISINOPRIL 5 MG TABLET. PO SCH (09:10)
[2018-03-27] MEDS: METOPROLOL SUCC 24HR ER 50 MG TAB.ER.24H. PO SCH (09:15)
[2018-03-27] MEDS: buPROPion XL 150 MG TAB.ER.24H PO SCH (09:15)
[2018-03-27] MEDS: SERTRALINE 100 MG TABLET. PO SCH (09:15)
--- NOTE | 2018-03-27 10:49 | NUR ---
Behavior Intervention Response and Plan: BIRP Note: Behavior: Assumed Care of patient, patient located in patient room at shift change. Patient exhibited the following behavior Interactive, Compliant, cooperative. Brief assessment on rounds of vital signs, medication needs, lab studies, and pain. Treatment plan problems 1-2. Intervention: Patient assessed and the following interventions initiated safety checks 15 Minute Checks Cognitive Assessment , Head to toe Assessment , Medications. Response: After interactions and interventions patient responded in the following manner, Social, Compliant, Cooperative. Continue to assess behaviors and condition will continue to monitor throughout the shift as needed. Patient educated on ADL's, and hand hygiene. 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 Continue to assess patient for changes in above assessment. Monitor for medication needs, pain, and safety concerns. Hourly rounding performed to ensure safe environment.
--- NOTE | 2018-03-27 12:48 | NUR ---
BYRON received vm from Marquita at [facility] in [place], [place] requesting SW to fax OA and SC COMRU results to [phone]. BYRON requested transport arrangements for dc scheduled on Tuesday and was told they do not offer transportation. BYRON left message for Pedro Carrasquillo requesting a call back to coordinate dc plans for Tuesday.
--- NOTE | 2018-03-27 14:53 | NUR ---
BYRON spoke w/Pt's son, Pedro Carrasquillo regarding transportation options at dc tomorrow. Pedro spoke w/family and they decided against personally transporting pt at dc due to the potential for pt to become combative or aggressive or potentially flee during transport. Pedro requested this SW to continue to pursue a Private Non Emergent Transport Company. BYRON had stated a company called [facility] was usually relatively cheaper then other non emergent medical transport companies and SW would be happy to make arrangements, pending family could provide payment via credit card over the phone. Pedro indicated in the f/u vm he would be able to provided that today or tomorrow. SW does have some concerns w/pt transporting w/a company to [place] as it is 70 miles/1 hr 40 minutes from this facility. BYRON inquired w/Pedro as to the discussion to be had w/pt regarding dc plans. 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 BYRON provided several examples of how other family's have handles similar situations in the recent past to ensure the safety of their loved one and the safety of the commercial trailer truck driver. Pedro Carrasquillo was not committed to a specific plan and stated he wanted to discuss things w/the family first. BYRON will require family to formulate a plan for pt prior to dc as pt does have memory loss, but also believes he will be returning home. SW to f/u w/family regarding transport.
[2018-03-27 16:01] VITALS: BP 110/61
--- NOTE | 2018-03-27 18:03 | NUR ---
Transport was arranged w/[facility] w/pt's son, Jaskaran providing the company w/credit card information for payment. Family will not be meeting pt at the new facility for transition. BYRON contacted Marquita at [facility] to confirm transport details set for Tuesday. BYRON will f/u w/Pedro MOYA Tuesday am w/final approval of dc. SW spoke w/pt regarding dc plans set for tomorrow. Pt became anxious that he would not have time to find "the paperwork" needed before he could go. Pt also was worried he would not be able to gather he belongings in time. SW spent some time talking thru the process of Nursing and staff assisting him in gathering his belongings prior to leaving, but not too early as other patients may become confused the items are their's and accidentally want to borrow them. They must stay locked up for safe keeping for now. Pt grasped this concept for short time, but then would revert back to worrying. BYRON was able to keep the dc location very vague and did not use the word "home". SW simply said his sons were not able to pick him up because they are working and it's a very long drive so they had to hire a transport company. Pt continued to state he felt as though he had to go somewhere else before going home, but he couldn't remember where exactly. BYRON did not address this, and used very vague "maybe" statements such as "maybe to visit your ?" or "maybe to see your sons?". BYRON will wait to evaluate pt's mood in the am before approaching w/a dc location.
--- NOTE | 2018-03-27 21:00 | PDOC ---
Exam Note: Harinder Note: Please also refer to the separate dictated note~for this date of service dictated separately.~Patient seen individually. Discussed the patient with Nursing staff reviewed the chart.~Reviewed interim history and current functioning. Reviewed vital signs,~Labs/ Radiology~and current medications noted below. Continue current treatment with the changes noted in the dictated addendum note Assessment: Vital Signs: Vital Signs Date Time Temp Pulse Resp B/P (MAP) Pulse Ox O2 Delivery O2 Flow Rate FiO2 03/27/18 16:01 98.6 56 16 110/61 (77) 98 03/26/18 06:07 Room Air I&O Intake and Output 03/27/18 06:59 Intake Total 1080 ml Balance 1080 ml Intake Oral 1080 ml Current Medications: Meds: Current Medications Olanzapine (ZyPREXA ZYDIS) 1.25 mg PRN Q2HR PRN PO PSYCHOSIS Last administered on 03/16/18at 08:08; Start 02/28/18 at 12:00 Acetaminophen (Tylenol) 650 mg PRN Q6HRS PRN PO PAIN / TEMP; Start 02/28/18 at 13:15 Multi-Ingredient Ointment (Analgesic [place]) 1 sophia PRN QID PRN TP MUSCLE PAIN; Start 02/28/18 at 13:15 Al Hydroxide/Mg Hydroxide (Mylanta Plus Xs) 15 ml PRN AFTMEALHC PRN PO DYSPEPSIA; Start 02/28/18 at 13:15 Magnesium Hydroxide (Milk Of Magnesia) 2,400 mg PRN QHS PRN PO CONSTIPATION; Start 02/28/18 at 13:15 Calcium Carbonate/ Glycine (Oscal) 500 mg DAILY PO Last administered on at 09:09; Start 03/01/18 at 09:00 Clopidogrel Bisulfate (Plavix) 75 mg DAILY PO Last administered on 03/27/18at 09: 09; Start 03/01/18 at 09:00 Lisinopril (Prinivil) 5 mg DAILY PO Last administered on 03/27/18at 09:10; Start 03/01/18 at 09:00 Aspirin (Children'S Aspirin) 81 mg DAILYWBKFT PO Last administered on 03/27/18at 09:07; Start 03/01/18 at 08:00 Atorvastatin Calcium (Lipitor) 40 mg DAILY PO Last administered on 03/04/18at 08: 25; Start 03/01/18 at 09:00; Stop 03/04/18 at 13:36; Status DC Glucosamine/ Chondroitin (Glucosamine-Chondroitin 500/400mg) 1 cap DAILY PO Last administered on 03/27/18 09:08; Start 03/01/18 at 09:00 Metoprolol Succinate (Toprol Xl) 50 mg DAILY PO Last administered on 03/27/18 09:15; Start 03/01/18 at 09:00 Fish Oil (Fish Oil) 1,000 mg DAILY PO Last administered on 03/27/18 09:08; Start 03/01/18 at 09:00 Multivitamins/ Minerals (I-Andre) 1 tab DAILY PO Last administered on 03/27/18 09:08; Start 03/01/18 at 09:00 Sertraline HCl (Zoloft) 25 mg DAILY PO Last administered on 03/02/18at 08:45; Start 03/01/18 at 09:00; Stop 03/03/18 at 08:00; Status DC Sertraline HCl (Zoloft) 50 mg DAILY PO Last administered on 03/09/18at 09:33; Start 03/03/18 at 09:00; Stop 03/09/18 at 10:49; Status DC Quetiapine Fumarate (SEROquel) 12.5 mg BID@0900,1300 PO Last administered on 13:24; Start 03/02/18 at 09:00; Stop 03/13/18 at 18:24; Status DC Non-Formulary Medication 1 ea DAILY PO Last administered on 03/27/18at 09:08; Start 03/05/18 at 09:00 Sertraline HCl (Zoloft) 75 mg DAILY PO Last administered on 03/12/18at 08:14; Start 03/10/18 at 09:00; Stop 03/12/18 at 09:30; Status DC Sertraline HCl (Zoloft) 100 mg DAILY PO Last administered on 03/27/18 09:15; Start 03/13/18 at 09:00 Quetiapine Fumarate (SEROquel) 12.5 mg 1300 PO Last administered on 03/22/18at 12:23; Start 03/14/18 at 13:00; Stop 03/22/18 at 18:33; Status DC Quetiapine Fumarate (SEROquel) 25 mg DAILY PO Last administered on 03/26/18at 09: 29; Start 03/14/18 at 09:00; Stop 03/27/18 at 09:00; Status DC Bupropion HCl (Wellbutrin Xl) 150 mg DAILY PO Last administered on 03/27/18at 09: 15; Start 03/17/18 at 09:00 Quetiapine Fumarate (SEROquel) 25 mg DAILY@1300 PO Last administered on at 13:25; Start 03/23/18 at 13:00 Quetiapine Fumarate (SEROquel) 12.5 mg DAILY PO Last administered on 03/27/18at 09:13; Start 03/27/18 at 09:00 Active Scripts Active Reported Lisinopril 5 Mg Tablet 5 Mg PO DAILY [id number] (Calcium Carbonate) 500 Mg Tablet 500 Mg PO DAILY Glucosamine Chondroitin Caplet (Gluc Emanuel Dipo Ch/Bg Emanuel/C/Sushant) 1 Each Tablet 1 Each PO DAILY Multivitamins (Multivitamin) 1 Each Tablet 1 Each PO [place] 3 Fish Oil Softgel ([place]-3 Fatty Acids/Fish Oil) 1 Each Capsule.dr 1 Each PO DAILY Aspirin 81 Mg Tab.chew 81 Mg PO DAILY Lipitor (Atorvastatin Calcium) 40 Mg Tablet 40 Mg PO DAILY Plavix (Clopidogrel Bisulfate) 75 Mg Tablet 75 Mg PO DAILY Metoprolol Succinate ( Xl ) (Metoprolol Succinate) 50 Mg Tab.er.24h 50 Mg PO DAILY I have reviewed the current psychotropics carefully including drug interactions. Risk benefit ratio favors no change other than as noted in my dictated progress note. Diagnosis: Problems: (1) Anxiety disorder (2) Impulse control disorder (3) Mild cognitive impairment (4) Major depressive disorder, recurrent episode DAVY CISNEROS MD Mar 27, 2018 21:00
[2018-03-27 21:45] VITALS: BP_SYST 131; BP_SYST 140; BP_DIAS 63; BP_DIAS 69
--- NOTE | 2018-03-27 22:30 | NUR ---
Nursing Note: At shift pt withdrawn to room, sitting up in his chair. Pt was calm and interactive with staff on assessment. Pt easily agreed to shower this evening and was cooperative with staffs assistance. Pt was been on unsteady on his feet this evening and had an episode were he caught himself of the rails in the hallway, staff assisted pt back to his chair. @2145 pt was found on his hand and knees near his bathroom. Upon questioning, pt reported that he was standing by the bed and slipped so he crawled to the bathroom. Staff assisted pt to his feet, and sat pt in chair. Vital signs assessed both sitting/standing and within normal range. Helped pt to bed and educated pt on asking for assistance. Bed alarm in place at this time. Dr. Beckham notified of situation and of pt's increased unsteadiness, orders to D/C evening dose of Seroquel obtained. Family notified of fall as well.
[2018-03-28] MEDS ORDERED: METH29OI TP (00:40)
[2018-03-28] MEDS ORDERED: ACET325T9 PO (00:41)
[2018-03-28] MEDS ORDERED: MAG30ORA2 PO (00:43)
[2018-03-28] MEDS ORDERED: VIT1TABL8 PO (00:44)
[2018-03-28] MEDS ORDERED: MAGN2400 PO (00:44)
[2018-03-28] MEDS ORDERED: OLAN2.5T3 PO (00:46)
[2018-03-28] MEDS ORDERED: SERT100T PO (00:47)
[2018-03-28] MEDS ORDERED: QUET25TA5 PO (00:47)
[2018-03-28] MEDS ORDERED: BUPR150T15 PO (00:48)
[2018-03-28] MEDS ORDERED: ROSUVASTATIN PO (00:50)
[2018-03-28 06:30] VITALS: BP 134/66
[2018-03-28] MEDS: ASPIRIN 81 MG TAB.CHEW PO SCH (08:15)
[2018-03-28] MEDS: GLUCOSAMINE/CHOND 500/400MG CAPSULE PO SCH (08:15)
[2018-03-28] MEDS: QUEtiapine 25 MG TABLET. PO SCH (08:16)
[2018-03-28] MEDS: MULTIVITAMIN I-VITE TABLET. PO SCH (08:16)
[2018-03-28] MEDS: CLOPIDOGREL BISULFATE 75 MG TABLET PO SCH (08:16)
[2018-03-28] MEDS: buPROPion XL 150 MG TAB.ER.24H PO SCH (08:16)
[2018-03-28] MEDS: METOPROLOL SUCC 24HR ER 50 MG TAB.ER.24H. PO SCH (08:16)
[2018-03-28 08:17] VITALS: BP 134/66
[2018-03-28] MEDS: OMEGA-3 FATTY ACIDS/FISH OIL 1,000 MG CAPSULE. PO SCH (08:17)
[2018-03-28] MEDS: LISINOPRIL 5 MG TABLET. PO SCH (08:17)
[2018-03-28] MEDS: SERTRALINE 100 MG TABLET. PO SCH (08:17)
[2018-03-28] MEDS: CALCIUM CARBONATE 500 MG TABLET PO SCH (08:18)
[2018-03-28] MEDS: ROSUVASTATIN 20 MG PO SCH (08:19)
--- NOTE | 2018-03-28 09:00 | NUR ---
Behavior Intervention Response and Plan: BIRP Note: Behavior: Assumed Care of patient, patient located in Day Room at shift change. Patient exhibited the following behavior Wandering, Disorganized, Compulsive. Brief assessment on rounds of vital signs, medication needs, lab studies, and pain. Treatment plan problems 1 & 2. Intervention: Patient assessed and the following interventions initiated safety checks 15 Minute Checks Cognitive Assessment , Head to toe Assessment , Medications. Response: After interactions and interventions patient responded in the following manner, Calm , Appropriate ,Compliant. Continue to assess behaviors and condition will continue to monitor throughout the shift as needed. Patient educated on ADL's, and hand hygiene. 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 Continue to assess patient for changes in above assessment. Monitor for medication needs, pain, and safety concerns. Hourly rounding performed to ensure safe environment.
--- NOTE | 2018-03-28 10:00 | NUR ---
BYRON met w/pt prior to dc to help explain dc plans as pt presents w/short term memory loss. BYRON introduced pt to his "truck driver heavy" who will be taking him to [place]. SW remained very vague on where pt was going, other then to [place] where his family will meet up with him later. BYRON explained his sons were working and unable to transport him to [place], so they hired a company, and sent this truck driver heavy named Rashid to take him. Pt was in a very agreeable mood, asked questions but was easily redirected. BYRON asked Nursing to provide pt w/a box lunch and snacks for the car ride as it will be approximately 1 hr 40 minutes to pt's new facility. BYRON contacted pt's son, Pedro Carrasquillo to notify of dc and pt's good mood at dc. BYRON stated pt was given a PRN to help assist w/a safer dc w/transport as the ride is quite long. BYRON contacted [facility] and left a message for Marquita to notify of pt's dc time and pt's positive mood.
--- NOTE | 2018-03-28 10:10 | NUR ---
[facility] Social Work Discharge Planning Form Patient Name CHRIS MCCAULEY Admit Date: 02/28/18 DISCHARGE PLAN Discharge Destination: new to [facility] Care Assessment: [place] VASILE completed Level II Assessment: does not meet Transportation: [facility] [place] 03/28/18 @ 10:30 (family private pay) DISCHARGE TO FACILITY Facility: [facility] Address: [address] [place] [address] Contact Name: PCP: at facility w/in 7-10 days of dc Psychiatrist: at facility w/in 7-10 days of dc
--- NOTE | 2018-03-28 10:50 | NUR ---
Transition Record was faxed to follow-up provider with the following elements: Reason for admission, procedures, tests, principal diagnosis, pending studies, patient instructions, 18/04 contact information for unit, phone number to obtain pending test results, plan for follow-up care, physician follow-up, advanced directive information, and medication list with dose, duration and instructions. This information was included in the following documents: History and physical, lab results, study results, progress notes, social work planning form, DC instruction form, patient visit summary, and medication reconciliation form. Date & time record faxed: [id number] MARCH 2018 Record faxed to: [facility] Record discussed with/ report given to: GRIFFIN Mooney at [facility]
--- NOTE | 2018-03-28 18:30 | PDOC ---
Exam Note: Harinder Note: Please also refer to the separate dictated note~for this date of service dictated separately.~Patient seen individually. Discussed the patient with Nursing staff reviewed the chart.~Reviewed interim history and current functioning. Reviewed vital signs,~Labs/ Radiology~and current medications noted below. Continue current treatment with the changes noted in the dictated addendum note Assessment: Vital Signs: Vital Signs Date Time Temp Pulse Resp B/P (MAP) Pulse Ox O2 Delivery O2 Flow Rate FiO2 03/28/18 08:17 57 134/66 03/28/18 06:30 97.9 14 99 03/27/18 21:45 Room Air I&O Intake and Output 03/28/18 07:00 Intake Total 960 ml Balance 960 ml Intake Oral 960 ml Current Medications: Meds: Current Medications Olanzapine (ZyPREXA ZYDIS) 1.25 mg PRN Q2HR PRN PO PSYCHOSIS Last administered on 03/16/18at 08:08; Start 02/28/18 at 12:00; Stop 03/28/18 at 10:57; Status DC Acetaminophen (Tylenol) 650 mg PRN Q6HRS PRN PO PAIN / TEMP; Start 02/28/18 at 13:15; Stop 03/28/18 at 10:57; Status DC Multi-Ingredient Ointment (Analgesic Temple) 1 zahra PRN QID PRN TP MUSCLE PAIN; Start 02/28/18 at 13:15; Stop 03/28/18 at 10:57; Status DC Al Hydroxide/Mg Hydroxide (Mylanta Plus Xs) 15 ml PRN AFTMEALHC PRN PO DYSPEPSIA; Start 02/28/18 at 13:15; Stop 03/28/18 at 10:57; Status DC Magnesium Hydroxide (Milk Of Magnesia) 2,400 mg PRN QHS PRN PO CONSTIPATION; Start 02/28/18 at 13:15; Stop 03/28/18 at 10:57; Status DC Calcium Carbonate/ Glycine (Oscal) 500 mg DAILY PO Last administered on at 08:18; Start 03/01/18 at 09:00; Stop 03/28/18 at 10:57; Status DC Clopidogrel Bisulfate (Plavix) 75 mg DAILY PO Last administered on 03/28/18at 08: 16; Start 03/01/18 at 09:00; Stop 03/28/18 at 10:57; Status DC Lisinopril (Prinivil) 5 mg DAILY PO Last administered on 03/28/18at 08:17; Start 03/01/18 at 09:00; Stop 03/28/18 at 10:57; Status DC Aspirin (Children'S Aspirin) 81 mg DAILYWBKFT PO Last administered on 03/28/18at 08:15; Start 03/01/18 at 08:00; Stop 03/28/18 at 10:57; Status DC Atorvastatin Calcium (Lipitor) 40 mg DAILY PO Last administered on 03/04/18at 08: 25; Start 03/01/18 at 09:00; Stop 03/04/18 at 13:36; Status DC Glucosamine/ Chondroitin (Glucosamine-Chondroitin 500/400mg) 1 cap DAILY PO Last administered on 03/28/18at 08:15; Start 03/01/18 at 09:00; Stop 03/28/18 at 10: 57; Status DC Metoprolol Succinate (Toprol Xl) 50 mg DAILY PO Last administered on 03/28/18at 08:16; Start 03/01/18 at 09:00; Stop 03/28/18 at 10:57; Status DC Fish Oil (Fish Oil) 1,000 mg DAILY PO Last administered on 03/28/18at 08:17; Start 03/01/18 at 09:00; Stop 03/28/18 at 10:57; Status DC Multivitamins/ Minerals (I-Andre) 1 tab DAILY PO Last administered on 03/28/18at 08:16; Start 03/01/18 at 09:00; Stop 03/28/18 at 10:57; Status DC Sertraline HCl (Zoloft) 25 mg DAILY PO Last administered on 03/02/18at 08:45; Start 03/01/18 at 09:00; Stop 03/03/18 at 08:00; Status DC Sertraline HCl (Zoloft) 50 mg DAILY PO Last administered on 03/09/18at 09:33; Start 03/03/18 at 09:00; Stop 03/09/18 at 10:49; Status DC Quetiapine Fumarate (SEROquel) 12.5 mg BID@0900,1300 PO Last administered on at 13:24; Start 03/02/18 at 09:00; Stop 03/13/18 at 18:24; Status DC Non-Formulary Medication 1 ea DAILY PO Last administered on 03/28/18at 08:19; Start 03/05/18 at 09:00; Stop 03/28/18 at 10:57; Status DC Sertraline HCl (Zoloft) 75 mg DAILY PO Last administered on 03/12/18at 08:14; Start 03/10/18 at 09:00; Stop 03/12/18 at 09:30; Status DC Sertraline HCl (Zoloft) 100 mg DAILY PO Last administered on 03/28/18at 08:17; Start 03/13/18 at 09:00; Stop 03/28/18 at 10:57; Status DC Quetiapine Fumarate (SEROquel) 12.5 mg 1300 PO Last administered on 03/22/18at 12:23; Start 03/14/18 at 13:00; Stop 03/22/18 at 18:33; Status DC Quetiapine Fumarate (SEROquel) 25 mg DAILY PO Last administered on 03/26/18at 09: 29; Start 03/14/18 at 09:00; Stop 03/27/18 at 09:00; Status DC Bupropion HCl (Wellbutrin Xl) 150 mg DAILY PO Last administered on 03/28/18at 08: 16; Start 03/17/18 at 09:00; Stop 03/28/18 at 10:57; Status DC Quetiapine Fumarate (SEROquel) 25 mg DAILY@1300 PO Last administered on at 13:25; Start 03/23/18 at 13:00; Stop 03/27/18 at 22:06; Status DC Quetiapine Fumarate (SEROquel) 12.5 mg DAILY PO Last administered on 03/28/18at 08:16; Start 03/27/18 at 09:00; Stop 03/28/18 at 10:57; Status DC Active Scripts Active Reported [rostuvastatin] 20 Mg PO DAILY Wellbutrin Xl (Bupropion Hcl) 150 Mg Tab.er.24h 150 Mg PO DAILY Zoloft (Sertraline Hcl) 100 Mg Tablet 100 Mg PO DAILY Seroquel (Quetiapine Fumarate) 25 Mg Tablet 12.5 Mg PO DAILY Zyprexa (Olanzapine) 2.5 Mg Tablet 1.25 Mg PO PRN Q2HR PRN max 7.5mg/24hrs I-Andre Tablet (Vit A,C & E/Lutein/Minerals) 1 Each Tablet 1 Tab PO DAILY Milk Of Magnesia (Magnesium Hydroxide) 2,400 Mg/10 Ml Oral.susp 2,400 Mg PO PRN QHS PRN Mag-Al Plus Xs Suspension (Mag Hydrox/Al Hydrox/Simeth) 30 Ml Oral.susp 15 Ml PO PRN AFTMEALHC PRN Tylenol (Acetaminophen) 325 Mg Tablet 650 Mg PO PRN Q6HRS PRN Analgesic Temple (Methyl Salicylate/Menthol) 28 Gm Oint...g. 1 Zahra TP PRN QID PRN Lisinopril 5 Mg Tablet 5 Mg PO DAILY Erni-Afl-587 (Calcium Carbonate) 500 Mg Tablet 500 Mg PO DAILY Glucosamine Chondroitin Caplet (Gluc Emanuel Dipo Ch/Bg Emanuel/C/Sushant) 1 Each Tablet 1 Each PO DAILY Bronson 3 Fish Oil Softgel (Bronson-3 Fatty Acids/Fish Oil) 1 Each Capsule.dr 1,000 Mg PO DAILY Aspirin 81 Mg Tab.chew 81 Mg PO DAILYWBKFT Plavix (Clopidogrel Bisulfate) 75 Mg Tablet 75 Mg PO DAILY Metoprolol Succinate ( Xl ) (Metoprolol Succinate) 50 Mg Tab.er.24h 50 Mg PO DAILY I have reviewed the current psychotropics carefully including drug interactions. Risk benefit ratio favors no change other than as noted in my dictated progress note. 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
--- NOTE | 2018-03-28 21:39 | PN ---
DATE: 03/27/2018 This is a late entry for 03/27/2018 and covers the elements not covered in my initial note. SUBJECTIVE: I met with the patient in the evening. The patient slept 6-1/2 hours previous night. He has been coming out more on the unit for the past 2 days. He gets a little confused towards the evening. I was called by the nursing staff around midnight last night and the patient had unsteady gait. Blood pressure was stable. REVIEW OF SYSTEM: No CV, , pulmonary, eye, ENT system symptoms on review. MENTAL STATUS EXAM: Oriented to himself. Insight, judgment, recent and remote memory, attention, concentration, fund of knowledge poor, consistent with his diagnosis mentioned in my initial note. PLAN: Stop the 1:00 p.m. Seroquel and the morning Seroquel was reduced to 12.5 mg. Continue rest unchanged. DAVY CISNEROS MD DR: NOREEN/hcarly JOB#: [id number] / [id number]
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
== END 2018-03-28 10:56 | DRG 885 ==
LOC: GEROPSY 10:15
PROVIDERS: ADMIT Psychiatry & Neurology Psychiatry; ATTEND Psychiatry & Neurology Psychiatry
DX: F33.3 Major depressive disorder, recurrent, severe with psychotic symptoms (principal); F02.81 Dementia in other diseases classified elsewhere, unspecified severity, with behavioral disturbance; F01.51 Vascular dementia, unspecified severity, with behavioral disturbance; G30.9 Alzheimer's disease, unspecified; F41.9 Anxiety disorder, unspecified; F09 Unspecified mental disorder due to known physiological condition; R45.87 Impulsiveness; F63.9 Impulse disorder, unspecified; I25.10 Atherosclerotic heart disease of native coronary artery without angina pectoris; I10 Essential (primary) hypertension; E78.5 Hyperlipidemia, unspecified; Z79.899 Other long term (current) drug therapy
CPT/HCPCS: 36415; 70450; 80053; 80061; 81001; 82306; 82607; 83036; 83540; 83550; 83735; 84436; 84443; 84480; 85025; 86592